=== PATIENT | female | born 1930 | race Caucasian/White ===

== ENCOUNTER 2019-03-26 15:45 | Inpatient (IN) ==
--- NOTE | 2019-03-26 16:05 | Emergency Department Note ---
ED Disposition Clinical Impression: Diverticulitis Disposition: Admitted as Observation Condition on Discharge: Fair Time of Disposition: 19:51 - Critical Care Critical Care Time: No Attestation: On , the high probability of a clinically significant, sudden or life threatening deterioration of the following system(s) required my full and direct attention, intervention and personal management. The time I documented below is in addition to time spent performing reported procedures but includes the following listed in this critical care notation. Medical Decision Making - Medical Records Medical records reviewed: Yes: I reviewed the patient's medical records. - Tin Inquiry Pt receiving controlled substance: No Tin was queried for this patient: No Vital Signs: 03/26/19 15:46 03/26/19 18:37 Temperature 99.1 F Temperature Source Oral Pulse Rate [Left Radial] 105 H 114 H Respiratory Rate 20 Blood Pressure [Right Arm] 101/46 L 132/63 Blood Pressure Mean [Right Arm] 64 86 Blood Pressure Source [Right Arm] Automatic Cuff Blood Pressure Position [Right Arm] Sitting 02 Sat by Pulse Oximetry 94 L 93 L Oxygen Delivery Method Room Air - Lab Data Lab results reviewed: Yes: I reviewed the patient's lab results. Orders (Tests/Meds): ED MEDICATIONS Generic Name Dose Route Start Last Admin Trade Name Freq PRN Reason Stop Dose Admin Piperacillin Sod/Tazobactam 50 mls @ 100 mls/hr 03/26/19 20:00 Sod 3.375 gm/ Sodium Chloride IV 04/09/19 19:59 Q6H ON LICENSE OF [facility] Protocol ORDERS Category Date Time Status CT abdomen pelvis wo con Stat Cat Scan 03/26/19 15:[address] cervical spine wo con Stat Cat Scan 03/26/19 16:[address] head/brain wo con Stat Cat Scan 03/26/19 15:57 Taken BMP [Basic Metabolic Panel] Stat Lab 03/26/19 18:46 Ordered CBC [Complete Blood Count Auto Diff] Stat Lab 03/26/19 18:46 Ordered General Adult HPI - General Stated complaint: fall Time Seen by Provider: 03/26/19 15:59 Source of Information: Patient Limitations: No Limitations - History of Present Illness HPI narrative: fall at her place of residence, injuring head and abdomen - Related Data Home Medications Medication Instructions Recorded Confirmed Atorvastatin Calcium [Atorvastatin 80 mg PO DAILY 07/18/18 03/26/19 80mg Tab] Cholecalciferol (Vitamin D3) 50,000 unit PO WEEKLY 07/18/18 03/26/19 [Vitamin D3 50,000 unit Cap] Cyanocobalamin (Vitamin B-12) 1,000 mcg PO DAILY 07/18/18 03/26/19 [Vitamin B-12] Levothyroxine Sodium 100 mcg PO DAILY 07/18/18 03/26/19 [Levothyroxine 50mcg (0.05mg) Tab] Melatonin/Pyridoxine HCl (B6) 1 each PO DAILY 07/18/18 03/26/19 [Melatonin 3 mg Tablet] Metoprolol Tartrate 50 mg PO BID 07/18/18 03/26/19 Omeprazole [Omeprazole 20mg 20 mg PO BID 07/18/18 03/26/19 Capsule] Sertraline HCl [Zoloft 100mg 100 mg PO DAILY 07/18/18 03/26/19 tablet] Allergies Allergy/AdvReac Type Severity Reaction Status Date / Time buspirone [From BuSpar] Allergy Verified 01/12/19 12:14 Sulfa (Sulfonamide Allergy Verified 11/01/18 19:47 Antibiotics) [facility] History - Hepatitis A Screen Attestation statement:: This patient has been screened for Hepatitis A risk factors. I have reviewed the patient's past medical history: Yes Medical History: Denies:: Cancer, Diabetes Mellitus Type 1, Diabetes Mellitus Type 2, MRSA Laterality Cases: Bilateral: Other Amputation: No Fractures: No - Social History Smoking Status: Never smoker Alcohol Intake: never Occupational Status: disabled Housing: assisted living facility Family Hx:: Hyperlipidemia, Hypertension, Heart Attack ROS Obtained: Yes All systems reviewed & no additional complaints - Constitutional Constitutional: Reports chills - Cardiovascular Cardiovascular: Denies chest pain, Denies dyspnea - Respiratory Respiratory: No chest congestion, No dyspnea - Gastrointestinal Gastrointestingal: Reports: abdominal pain - Integumentary/Breasts Skin/Breast: Denies skin pain - Neurologic Neurologic: Denies headache(s), Denies seizure-like activity, Denies syncope Physical Exam - General General appearance: alert, in no apparent distress - Head Head exam: atraumatic, normocephalic, normal inspection - Eye Eye exam: Present: normal appearance, PERRL, EOMI - ENT ENT exam: Present: normal exam, normal oropharynx, mucous membranes moist, TM's normal bilaterally, normal external ear exam - Neck Neck exam: Present: normal inspection, full ROM, trachea midline. Absent: men ingismus, lymphadenopathy - Chest Chest inspection: Present: normal inspection - Respiratory Respiratory exam: Present: normal lung sounds bilaterally - Cardiovascular Cardiovascular exam: Present: regular rate, normal rhythm. Absent: JVD - Abdominal Exam Abdominal exam: Present: soft, normal bowel sounds. Absent: distention, tenderness, guarding Abdominal tenderness: Present: LLQ, moderate - Extremities Exam Extremities exam: Present: normal inspection, full ROM, normal capillary refill. Absent: calf tenderness - Back Exam Back exam: Present: normal inspection - Neurological Exam Neurological exam: Present: alert, oriented X3 - Psychiatric Psychiatric exam: Present: normal affect, normal mood - Skin Skin exam: Present: warm, dry, intact, normal color - Lymphatic Lymphatic Findings: no adenopathy
[2019-03-26 20:10] LABS: Basophils # 0.1 K/mm3 (0-0.2); Basophils % 0.2 % (0.1-2.0); Eosinophils # 0.3 K/mm3 (0.0-0.4); Eosinophils % 0.9 % (0.1-12.0); Hematocrit 31.6 % (37.0-47.0); Hemoglobin 9.9 g/dL (12.2-16.2); Lymphocytes # 1.3 K/mm3 (0.7-4.5); Mean Corpuscular HGB Conc 31.2 g/dL (31.8-35.4); Mean Corpuscular Volume 91.3 fl (81-99); Mean Platelet Volume 8.9 fl (7.4-10.4); Monocytes # 1.6 K/mm3 (0.1-1.0); Monocytes % 4.7 % (1.7-9.3); Neutrophils # 30.5 K/mm3 (1.8-7.8); Neutrophils % 90.3 % (37.0-80.0); Platelet Count 160 K/mm3 (142-424); Red Blood Count 3.46 M/mm3 (4.20-5.40); Red Cell Distribution Width 14.4 % (11.5-17.5); White Blood Count 33.8 K/mm3 (4.8-10.8)
[2019-03-26 20:17] LABS: Anion Gap 15.2 mEq/L (5-15); Calcium 8.6 mg/dL (8.5-10.1)
[2019-03-26 20:30] LABS: Lymphocytes % 6 % (10-50); Monocytes % 1 % (2-9); Neutrophils % 93 % (42-76); RBC Morphology Normal; Total Cells Counted 100
--- NOTE | 2019-03-27 07:04 | Pharmacy Consult Notes ---
[facility] Pharmacy VTE Monitoring - Patient Demographics Admission date: 03/26/19 Report Date: 03/27/19 Time: 07:04 Allergies/Adverse Reactions: Patient Allergies buspirone [From BuSpar] Allergy (Verified 01/12/19 12:14) Sulfa (Sulfonamide Antibiotics) Allergy (Verified 11/01/18 19:47) Height: 1.52 m Weight: 50.972 kg Patient Problems: Current Active Problems Diverticulitis (Acute) - VTE Risk Labs: VTE Related Lab Results Hgb 9.9 g/dL (12.2-16.2) L 03/26/19 20:00 Hct 31.6 % (37.0-47.0) L 03/26/19 20:00 Plt Count 160 K/mm3 (142-424) 03/26/19 20:00 BUN 39 mg/dL (7-18) H 03/26/19 20:00 Creatinine 2.10 mg/dL (0.55-1.02) H 03/26/19 20:00 Estimated Creat Clear 14 mL/min (50-200) 03/26/19 20:00 Was VTE Risk Assessment Performed: Yes VTE Score: 2 VTE Risk Level: Very Low Risk - Prophylaxis VTE Prophylaxis Ordered?: Yes Types of VTE Prophylaxis: TEDS Knee High Location of Applied Device: Bilateral Lower Extremeties - VTE Diagnosis Confirmed Treatment or plan recommended: Continue Current Treatment
[2019-03-27 07:20] LABS: Basophils % 0.1 % (0.1-2.0); Eosinophils % 0.1 % (0.1-12.0)
[2019-03-27 07:36] LABS: Anion Gap 14.4 mEq/L (5-15); Calcium 8.1 mg/dL (8.5-10.1)
[2019-03-27 07:42] LABS: Basophils # 0.1 K/mm3 (0-0.2); Hematocrit 29.9 % (37.0-47.0); Lymphocytes # 1.3 K/mm3 (0.7-4.5); Lymphocytes % 4.2 % (10-50); Mean Corpuscular HGB Conc 29.5 g/dL (31.8-35.4); Mean Corpuscular Volume 93.1 fl (81-99); Mean Platelet Volume 9.1 fl (7.4-10.4); Monocytes # 2.1 K/mm3 (0.1-1.0); Monocytes % 6.7 % (1.7-9.3); Neutrophils # 28.2 K/mm3 (1.8-7.8); Platelet Count 168 K/mm3 (142-424); Red Blood Count 3.21 M/mm3 (4.20-5.40); Red Cell Distribution Width 14.5 % (11.5-17.5); White Blood Count 31.7 K/mm3 (4.8-10.8)
[2019-03-27 07:50] LABS: Hemoglobin 8.8 g/dL (12.2-16.2)
--- NOTE | 2019-03-27 09:33 | Consult Report ---
*Admission Date: 03/26/19 *Reason for consult:: Diverticulitis *History of present illness: This is an 88-year-old female who was evaluated last night in the emergency department after presenting with head, chest, and abdominal pain status post fall. No significant acute injuries were determined after her initial evaluation; however, she was found to have radiographic evidence of diverticulitis. Her white blood cell count was significantly elevated. She was placed on antibiotics and admitted for further evaluation and management. Review of Systems - Review of Systems Review of systems:: unable to obtain - *Neurologic Denies headache(s), Denies seizure-like activity, Denies fainting [facility] History Medical History: Reports:: Coronary Artery Disease, Hyperlipidemia, Hypertension Denies:: Cancer, Diabetes Mellitus Type 1, Diabetes Mellitus Type 2, MRSA *Have you ever received a pneumonia vaccine?: Yes *Have you received a flu vaccine this season?: Yes Other Medical History: Reports: Anemia, Arthritis, Hypothyroidism Laterality Cases: Bilateral: Other Amputation: No Fractures: No - *Social History Smoking Status: Never smoker Alcohol Intake: never *Occupational Status:: disabled Housing: assisted living facility Household Members: other *Travel in the last 8 weeks: None Family Hx:: Hyperlipidemia, Hypertension, Heart Attack Meds Home Medications Medication Instructions Recorded Confirmed Type Atorvastatin Calcium [Atorvastatin 80 mg PO HS 07/18/18 03/27/19 History 80mg Tab] Cholecalciferol (Vitamin D3) 50,000 unit PO WEEKLY 07/18/18 03/27/19 History [Vitamin D3 50,000 unit Cap] Cyanocobalamin (Vitamin B-12) 1,000 mcg PO DAILY 07/18/18 03/27/19 History [Vitamin B-12] Levothyroxine Sodium 100 mcg PO DAILY 07/18/18 03/27/19 History [Levothyroxine 50mcg (0.05mg) Tab] Melatonin/Pyridoxine HCl (B6) 3 mg PO HS 07/18/18 03/27/19 History [Melatonin 3 mg Tablet] Metoprolol Tartrate 50 mg PO BID 07/18/18 03/27/19 History Omeprazole [Omeprazole 20mg 20 mg PO BID 07/18/18 03/27/19 History Capsule] Sertraline HCl [Zoloft 100mg 100 mg PO DAILY 07/18/18 03/27/19 History tablet] Acetaminophen 500 mg PO BIDP PRN 03/27/19 03/27/19 History Donepezil HCl [Aricept 5mg 5 mg PO HS 03/27/19 03/27/19 History Tablet] Nitroglycerin 0.4 mg SL Q5MINP PRN 03/27/19 03/27/19 History Tramadol HCl [Tramadol 50mg 50 mg PO BID 03/27/19 03/27/19 History Tab] Trazodone HCl 50 mg PO DAILY 03/27/19 03/27/19 History Allergies Allergy/AdvReac Type Severity Reaction Status Date / Time buspirone [From BuSpar] Allergy Verified 01/12/19 12:14 Sulfa (Sulfonamide Allergy Verified 11/01/18 19:47 Antibiotics) Exam Vital signs and Labs for Last 24 Hours: Temp Pulse Resp BP Pulse Ox 97.5 F L 68 18 105/45 L 95 03/27/19 08:00 03/27/19 08:00 03/27/19 08:00 03/27/19 08:00 03/27/19 08:00 Laboratory Results - last 24 hr 03/26/19 20:00: WBC 33.8 H*, RBC 3.46 L, Hgb 9.9 L, Hct 31.6 L, MCV 91.3, MCH 2 8.5, MCHC 31.2 L, RDW 14.4, Plt Count 160, MPV 8.9, Neut % (Auto) 90.3 H, Lymph % (Auto) 4.0 L, [place] % (Auto) 4.7, Eos % (Auto) 0.9, Baso % (Auto) 0.2, Neut # (Auto) 30.5 H, Lymph # (Auto) 1.3, [place] # (Auto) 1.6 H, Eos # (Auto) 0.3, Baso # (Auto) 0.1, Total Counted 100, Neutrophils % (Manual) 93 H, Lymphocytes % (Manual) 6 L, Monocytes % (Manual) 1 L, Platelet Estimate Normal, RBC Morphology Normal 03/26/19 20:00: Sodium 136, Potassium 4.2, Chloride 101, Carbon Dioxide 24, Anion Gap 15.2 H, BUN 39 H, Creatinine 2.10 H, Estimated Creat Clear 14, Estimated GFR 22 L, Est GFR ( Amer) 27 L, Glucose 100, Calcium 8.6 03/26/19 20:00: Lactate 0.9 03/27/19 06:24: WBC 31.7 H*, RBC 3.21 L, Hgb 8.8 L D, Hct 29.9 L, MCV 93.1, MCH 27.4, MCHC 29.5 L, RDW 14.5, Plt Count 168, MPV 9.1, Neut % (Auto) 89.0 H, Lymph % (Auto) 4.2 L, [place] % (Auto) 6.7, Eos % (Auto) 0.1, Baso % (Auto) 0.1, Neut # (Auto) 28.2 H, Lymph # (Auto) 1.3, [place] # (Auto) 2.1 H, Eos # (Auto) 0.0, Baso # (Auto) 0.1 03/27/19 06:24: Sodium 138, Potassium 3.4 L, Chloride 104, Carbon Dioxide 23, Anion Gap 14.4, BUN 44 H, Creatinine 2.15 H, Estimated Creat Clear 15, Estimated GFR 22 L, Est GFR ( Amer) 26 L, Glucose 93, Calcium 8.1 L I & O for Last 24 hours: Intake & Output 03/24/19 03/25/19 03/26/19 03/27/19 11:59 11:59 11:59 11:59 Intake Total 805 / 805 Balance 805 / 805 Weight 112 lb 6 oz - Constitutional no acute distress - *Routine Respiratory Exam Absent: respiratory distress - *Routine Cardiovascular Exam Present: RRR - *Routine Abdominal Exam Present: tenderness. Absent: distended, rebound Comments: She is somewhat tender throughout her abdomen. She is more tender throughout the left upper abdomen and chest and states "fall". Although she is a poor historian, seemingly she did not complain of abdominal pain prior to her recent fall. Results - Labs 03/27/19 06:24 03/27/19 06:24 Laboratory Results - last 24 hr 03/26/19 20:00: WBC 33.8 H*, RBC 3.46 L, Hgb 9.9 L, Hct 31.6 L, MCV 91.3, MCH 28.5, MCHC 31.2 L, RDW 14.4, Plt Count 160, MPV 8.9, Neut % (Auto) 90.3 H, Lymph % (Auto) 4.0 L, [place] % (Auto) 4.7, Eos % (Auto) 0.9, Baso % (Auto) 0.2, Neut # (Auto) 30.5 H, Lymph # (Auto) 1.3, [place] # (Auto) 1.6 H, Eos # (Auto) 0.3, Baso # (Auto) 0.1, Total Counted 100, Neutrophils % (Manual) 93 H, Lymphocytes % (Manual) 6 L, Monocytes % (Manual) 1 L, Platelet Estimate Normal, RBC Morphology Normal 03/26/19 20:00: Sodium 136, Potassium 4.2, Chloride 101, Carbon Dioxide 24, Anion Gap 15.2 H, BUN 39 H, Creatinine 2.10 H, Estimated Creat Clear 14, Estimated GFR 22 L, Est GFR ( Amer) 27 L, Glucose 100, Calcium 8.6 03/26/19 20:00: Lactate 0.9 03/27/19 06:24: WBC 31.7 H*, RBC 3.21 L, Hgb 8.8 L D, Hct 29.9 L, MCV 93.1, MCH 27.4, MCHC 29.5 L, RDW 14.5, Plt Count 168, MPV 9.1, Neut % (Auto) 89.0 H, Lymph % (Auto) 4.2 L, [place] % (Auto) 6.7, Eos % (Auto) 0.1, Baso % (Auto) 0.1, Neut # (Auto) 28.2 H, Lymph # (Auto) 1.3, [place] # (Auto) 2.1 H, Eos # (Auto) 0.0, Baso # (Auto) 0.1 03/27/19 06:24: Sodium 138, Potassium 3.4 L, Chloride 104, Carbon Dioxide 23, Anion Gap 14.4, BUN 44 H, Creatinine 2.15 H, Estimated Creat Clear 15, Estimated GFR 22 L, Est GFR ( Amer) 26 L, Glucose 93, Calcium 8.1 L - Imaging CT scan - abdomen: report reviewed, image reviewed CT scan - pelvis: report reviewed, image reviewed (Copied from CT findings: There is diverticulosis of the descending and sigmoid colon. There is thickening of the distal descending colon and proximal sigmoid colon with stranding of the pericolic fat an there stranding of the pericolic fat around the lower aspect of the descending colon consistent with diverticulitis. No abscess or perforation evident. There is a small amount fluid in the pelvis nonspecific) Assessment and Plan (1) Leukocytosis Current visit: Yes Status: Acute Category: Medical Code(s): D72.829 - Elevated white blood cell count, unspecified Urinalysis ordered. Lactate ordered. (2) Diverticulitis Current visit: Yes Status: Acute Category: Medical Code(s): K57.92 - Diverticulitis of intestine, part unspecified, without perforation or abscess without bleeding Continue IV antibiotics for now Serial abdominal exams NOTE: The degree of leukocytosis and the overall "radiographic" severity of her diverticulitis is somewhat discordant. In addition, physical exam findings are somewhat "clouded" by her recent fall and associated pain. (3) Compression fracture of T10 vertebra Current visit: No Status: Acute Qualifiers: Encounter type: initial encounter Qualified Code(s): S22.070A - Wedge compression fracture of T9-T10 vertebra, initial encounter for closed fracture Category: Medical Code(s): S22.070A - Wedge compression fracture of T9-T10 vertebra, initial encounter for closed fracture (4) History of CHF (congestive heart failure) Current visit: No Status: Acute Category: Medical Code(s): Z86.79 - Personal history of other diseases of the circulatory system
[2019-03-27 11:31] LABS: Lymphocytes % 6 % (10-50); Monocytes % 8 % (2-9); Neutrophils % 83 % (42-76); Total Cells Counted 100
[2019-03-27 11:33] LABS: RBC Morphology Normal
--- NOTE | 2019-03-27 13:54 | History & Physical Report ---
*Admission Date: 03/26/19 *Chief complaint: fall *History of present illness: this wf fell and was seen in the ed and on eval was noted to have diverticulitis on xray and elevated wbc -pt was admiitted for ivf and abx and surg eval [facility] History I have reviewed the patient's past medical history: Yes Medical History: Reports:: Coronary Artery Disease, Hyperlipidemia, Hypertension Denies:: Cancer, Diabetes Mellitus Type 1, Diabetes Mellitus Type 2, MRSA *Have you ever received a pneumonia vaccine?: Yes *Have you received a flu vaccine this season?: Yes Other Medical History: Reports: Anemia, Arthritis, Hypothyroidism Laterality Cases: Bilateral: Other Amputation: No Fractures: No - *Social History Smoking Status: Never smoker Alcohol Intake: never *Occupational Status:: disabled Housing: assisted living facility Household Members: other *Travel in the last 8 weeks: None Family Hx:: Hyperlipidemia, Hypertension, Heart Attack Review of Systems - Review of Systems Review of systems:: pertinent systems reviewed and negative unless documented below - Constitutional Denies headache(s) - Eyes Denies change in vision - ENT Denies sore throat - *Cardiovascular Denies chest pain at rest - *Respiratory Denies cough - *Gastrointestinal Reports abdominal pain, Reports nausea, Denies vomiting - *Genitourinary Denies blood in urine - *Musculoskeletal Denies joint pain - Integumentary/Breasts Denies rash - *Neurologic Denies headache(s), Denies seizure-like activity, Denies fainting - Psychiatric Denies depression Meds Home Medications Medication Instructions Recorded Confirmed Type Atorvastatin Calcium [Atorvastatin 80 mg PO HS 07/18/18 03/27/19 History 80mg Tab] Cholecalciferol (Vitamin D3) 50,000 unit PO WEEKLY 07/18/18 03/27/19 History [Vitamin D3 50,000 unit Cap] Cyanocobalamin (Vitamin B-12) 1,000 mcg PO DAILY 07/18/18 03/27/19 History [Vitamin B-12] Levothyroxine Sodium 100 mcg PO DAILY 07/18/18 03/27/19 History [Levothyroxine 50mcg (0.05mg) Tab] Melatonin/Pyridoxine HCl (B6) 3 mg PO HS 07/18/18 03/27/19 History [Melatonin 3 mg Tablet] Metoprolol Tartrate 50 mg PO BID 07/18/18 03/27/19 History Omeprazole [Omeprazole 20mg 20 mg PO BID 07/18/18 03/27/19 History Capsule] Sertraline HCl [Zoloft 100mg 100 mg PO DAILY 07/18/18 03/27/19 History tablet] Acetaminophen 500 mg PO BIDP PRN 03/27/19 03/27/19 History Donepezil HCl [Aricept 5mg 5 mg PO HS 03/27/19 03/27/19 History Tablet] Nitroglycerin 0.4 mg SL Q5MINP PRN 03/27/19 03/27/19 History Tramadol HCl [Tramadol 50mg 50 mg PO BID 03/27/19 03/27/19 History Tab] Trazodone HCl 50 mg PO DAILY 03/27/19 03/27/19 History Allergies Allergy/AdvReac Type Severity Reaction Status Date / Time buspirone [From BuSpar] Allergy Verified 01/12/19 12:14 Sulfa (Sulfonamide Allergy Verified 11/01/18 19:47 Antibiotics) Exam Vital signs and Labs for Last 24 Hours: Temp Pulse Resp BP Pulse Ox 97.5 F L 68 18 105/45 L 95 03/27/19 08:00 03/27/19 08:00 03/27/19 08:00 03/27/19 08:00 03/27/19 08:00 Laboratory Results - last 24 hr 03/26/19 20:00: WBC 33.8 H*, RBC 3.46 L, Hgb 9.9 L, Hct 31.6 L, MCV 91.3, MCH 28.5, MCHC 31.2 L, RDW 14.4, Plt Count 160, MPV 8.9, Neut % (Auto) 90.3 H, Lymph % (Auto) 4.0 L, [place] % (Auto) 4.7, Eos % (Auto) 0.9, Baso % (Auto) 0.2, Neut # (Auto) 30.5 H, Lymph # (Auto) 1.3, [place] # (Auto) 1.6 H, Eos # (Auto) 0.3, Baso # (Auto) 0.1, Total Counted 100, Neutrophils % (Manual) 93 H, Lymphocytes % (Manual) 6 L, Monocytes % (Manual) 1 L, Platelet Estimate Normal, RBC Morphology Normal 03/26/19 20:00: Sodium 136, Potassium 4.2, Chloride 101, Carbon Dioxide 24, Anion Gap 15.2 H, BUN 39 H, Creatinine 2.10 H, Estimated Creat Clear 14, Estimated GFR 22 L, Est GFR ( Amer) 27 L, Glucose 100, Calcium 8.6 03/26/19 20:00: Lactate 0.9 03/27/19 06:24: WBC 31.7 H*, RBC 3.21 L, Hgb 8.8 L D, Hct 29.9 L, MCV 93.1, MCH 27.4, MCHC 29.5 L, RDW 14.5, Plt Count 168, MPV 9.1, Neut % (Auto) 89.0 H, Lymph % (Auto) 4.2 L, [place] % (Auto) 6.7, Eos % (Auto) 0.1, Baso % (Auto) 0.1, Neut # (Auto) 28.2 H, Lymph # (Auto) 1.3, [place] # (Auto) 2.1 H, Eos # (Auto) 0.0, Baso # (Auto) 0.1, Total Counted 100, Neutrophils % (Manual) 83 H, Band Neutrophils % 3.0, Lymphocytes % (Manual) 6 L, Monocytes % (Manual) 8, Platelet Estimate Normal, RBC Morphology Normal 03/27/19 06:24: Sodium 138, Potassium 3.4 L, Chloride 104, Carbon Dioxide 23, Anion Gap 14.4, BUN 44 H, Creatinine 2.15 H, Estimated Creat Clear 15, Estimated GFR 22 L, Est GFR ( Amer) 26 L, Glucose 93, Calcium 8.1 L 03/27/19 09:20: Urine Color Yellow, Urine Appearance Sl cloudy, Urine pH 5.0, Ur Specific [place] >= 1.030, Urine Protein Negative, Urine Glucose (UA) Negative, Urine Ketones Trace, Urine Blood 2+, Urine Nitrate Negative, Urine Bilirubin Negative, Urine Urobilinogen 0.2, Ur Leukocyte Esterase 1+ A, Urine RBC 3-5, Urine WBC 5-10, Ur Squamous Epith Cells 3-5, Urine Bacteria 3+ A 03/27/19 10:25: Lactate 0.4 I & O for Last 24 hours: Intake & Output 03/25/19 03/26/19 03/27/19 03/28/19 11:59 11:59 11:59 11:59 Intake Total 805 / 805 Balance 805 / 805 Weight 112 lb 6 oz 112 lb 5.984 oz - Constitutional no acute distress - *Routine HEENT Exam Head: Present: normocephalic Eye: Present: EOMI, PERRL ENT: Present: mucous membranes dry - *Routine Neck Exam Present: supple - *Routine Respiratory Exam Present: CTA bilaterally - *Routine Cardiovascular Exam Present: RRR, murmur, S4 - *Routine Abdominal Exam Present: soft, tenderness - *Routine Extremities Exam Present: full ROM. Absent: edema - *Routine Skin Exam Present: intact - *Routine Neurological Exam Present: alert, oriented X3, CN II-XII intact - Routine Psychiatric Exam Present: normal affect Assessment and Plan (1) Leukocytosis Current visit: Yes Status: Acute Category: Medical Code(s): D72.829 - Elevated white blood cell count, unspecified (2) Diverticulitis Current visit: Yes Status: Acute Category: Medical Code(s): K57.92 - Diverticulitis of intestine, part unspecified, without perforation or abscess without bleeding (3) Compression fracture of T10 vertebra Current visit: No Status: Acute Qualifiers: Encounter type: initial encounter Qualified Code(s): S22.070A - Wedge compression fracture of T9-T10 vertebra, initial encounter for closed fracture Category: Medical Code(s): S22.070A - Wedge compression fracture of T9-T10 vertebra, initial encounter for closed fracture (4) History of CHF (congestive heart failure) Current visit: No Status: Acute Category: Medical Code(s): Z86.79 - Personal history of other diseases of the circulatory system (5) Hypothyroidism Current visit: No Status: Acute Qualifiers: Hypothyroidism type: acquired Qualified Code(s): E03.9 - Hypothyroidism, unspecified Category: Medical Code(s): E03.9 - Hypothyroidism, unspecified (6) Severe sepsis Current visit: Yes Status: Acute Category: Medical Code(s): A41.9 - Sepsis, unspecified organism; R65.20 - Severe sepsis without septic shock (7) Anemia Current visit: Yes Status: Acute Qualifiers: Anemia type: unspecified type Qualified Code(s): D64.9 - Anemia, unspecified Category: Medical Code(s): D64.9 - Anemia, unspecified (8) History of hysterectomy Current visit: Yes Status: Acute Category: Medical Code(s): Z90.710 - Acquired absence of both cervix and uterus (9) Cervical spondylosis Current visit: Yes Status: Acute Category: Medical Code(s): M47.812 - Spondylosis without myelopathy or radiculopathy, cervical region (10) Renal insufficiency Current visit: Yes Status: Acute Category: Medical Code(s): N28.9 - Disorder of kidney and ureter, unspecified (11) UTI (urinary tract infection) Current visit: Yes Status: Acute Qualifiers: Urinary tract infection type: site unspecified Hematuria presence: without hematuria Qualified Code(s): N39.0 - Urinary tract infection, site not specified Category: Medical Code(s): N39.0 - Urinary tract infection, site not specified (12) C. difficile enteritis Current visit: Yes Status: Acute Category: Medical Code(s): A04.72 - Enterocolitis due to Clostridium difficile, not specified as recurrent
[2019-03-28 08:44] LABS: Basophils % 0.1 % (0.1-2.0); Eosinophils # 0.1 K/mm3 (0.0-0.4); Eosinophils % 0.6 % (0.1-12.0); Hematocrit 31.2 % (37.0-47.0); Hemoglobin 9.5 g/dL (12.2-16.2); Lymphocytes % 7.6 % (10-50); Mean Corpuscular HGB Conc 30.4 g/dL (31.8-35.4); Mean Corpuscular Volume 93.8 fl (81-99); Mean Platelet Volume 8.7 fl (7.4-10.4); Monocytes # 0.5 K/mm3 (0.1-1.0); Monocytes % 3.8 % (1.7-9.3); Neutrophils # 11.3 K/mm3 (1.8-7.8); Platelet Count 154 K/mm3 (142-424); Red Blood Count 3.33 M/mm3 (4.20-5.40); Red Cell Distribution Width 14.4 % (11.5-17.5); White Blood Count 12.8 K/mm3 (4.8-10.8)
[2019-03-28 08:52] LABS: Anion Gap 13.1 mEq/L (5-15); Calcium 7.7 mg/dL (8.5-10.1)
--- NOTE | 2019-03-28 09:00 | Progress Note ---
Internal Medicine - PN: Subj *Date: 03/28/19 *Time: 08:58 Interval history: better today with less wbc - will add po vancomycin Exam Vital signs and Labs for Last 24 Hours: Temp Pulse Resp BP Pulse Ox 97.8 F 63 18 126/43 L 94 L 03/28/19 07:35 03/28/19 07:35 03/28/19 07:35 03/28/19 07:35 03/28/19 07:35 Laboratory Results - last 24 hr 03/27/19 06:24: Total Counted 100, Neutrophils % (Manual) 83 H, Band Neutrophils % 3.0, Lymphocytes % (Manual) 6 L, Monocytes % (Manual) 8, Platelet Estimate Normal, RBC Morphology Normal 03/27/19 09:20: Urine Color Yellow, Urine Appearance Sl cloudy, Urine pH 5.0, Ur Specific [place] >= 1.030, Urine Protein Negative, Urine Glucose (UA) Negative, Urine Ketones Trace, Urine Blood 2+, Urine Nitrate Negative, Urine Bilirubin Negative, Urine Urobilinogen 0.2, Ur Leukocyte Esterase 1+ A, Urine RBC 3-5, Urine WBC 5-10, Ur Squamous Epith Cells 3-5, Urine Bacteria 3+ A 03/27/19 10:25: Lactate 0.4 03/27/19 18:23: Stl Aeromonas (PCR) Not detected, Stl C. cayetanensis PCR Not detected, Stool Rotavirus (PCR) Not detected, Stl Adenov F 40/41 PCR Not detected, Stool Astrovirus (PCR) Not detected, Stool Campylobacter PCR Not detected, Stl C.difficile Tox PCR Detected A, Stool Cryptosporidium PCR Not detected, Stl E.coli Shiga Tox PCR Not detected, Stool E coli O157 PCR Not detected, Stl Enterotoxigenic E PCR Not detected, Stool EPEC (PCR) Not detected, Stool EAEC (PCR) Not detected, Stl E. histolytica PCR Not detected, Stool Giardia Lamblia PCR Not detected, Stool Salmonella PCR Not detected, Stool Sapovirus (PCR) Not detected, Stl P. shigelloides PCR Not detected, Stl Shigella/EIEC PCR Not detected, St Y.enterocolitica PCR Not detected, Stool Vibrio (PCR) Not detected, Stl Vibrio cholerae PCR Not detected, Stl Norovirus GI/GII PCR Not detected 03/28/19 08:15: WBC 12.8 H D, RBC 3.33 L, Hgb 9.5 L, Hct 31.2 L, MCV 93.8, MCH 28.6, MCHC 30.4 L, RDW 14.4, Plt Count 154, MPV 8.7, Neut % (Auto) 88.0 H, Lymph % (Auto) 7.6 L, [place] % (Auto) 3.8, Eos % (Auto) 0.6, Baso % (Auto) 0.1, Neut # (Auto) 11.3 H, Lymph # (Auto) 1.0, [place] # (Auto) 0.5, Eos # (Auto) 0.1, Baso # (Auto) 0.0 03/28/19 08:15: Sodium 142, Potassium 3.1 L, Chloride 110 H, Carbon Dioxide 22, Anion Gap 13.1, BUN 37 H, Creatinine 1.62 H D, Estimated Creat Clear 21, Estimated GFR 30 L, Est GFR ( Amer) 36 L D, Glucose 91, Calcium 7.7 L I & O for Last 24 hours: Intake & Output 03/25/19 03/26/19 03/27/19 03/28/19 11:59 11:59 11:59 11:59 Intake Total 805 / 805 3460 / 3460 Balance 805 / 805 3460 / 3460 Weight 112 lb 6 oz 119 lb 5 oz - Constitutional no acute distress - *Routine HEENT Exam Head: Present: normocephalic Eye: Present: EOMI, PERRL ENT: Present: mucous membranes dry - *Routine Neck Exam Present: supple - *Routine Respiratory Exam Present: CTA bilaterally - *Routine Cardiovascular Exam Present: RRR, murmur, S4 - *Routine Abdominal Exam Present: soft, tenderness - *Routine Extremities Exam Present: full ROM - *Routine Skin Exam Present: intact - *Routine Neurological Exam Present: alert, CN II-XII intact - Routine Psychiatric Exam Present: normal affect Assessment and Plan (1) Leukocytosis Current visit: Yes Status: Acute Category: Medical Code(s): D72.829 - Elevated white blood cell count, unspecified (2) Diverticulitis Current visit: Yes Status: Acute Category: Medical Code(s): K57.92 - Diverticulitis of intestine, part unspecified, without perforation or abscess without bleeding (3) Compression fracture of T10 vertebra Current visit: No Status: Acute Qualifiers: Encounter type: initial encounter Qualified Code(s): S22.070A - Wedge compression fracture of T9-T10 vertebra, initial encounter for closed fracture Category: Medical Code(s): S22.070A - Wedge compression fracture of T9-T10 vertebra, initial encounter for closed fracture (4) History of CHF (congestive heart failure) Current visit: No Status: Acute Category: Medical Code(s): Z86.79 - Personal history of other diseases of the circulatory system (5) Hypothyroidism Current visit: No Status: Acute Qualifiers: Hypothyroidism type: acquired Qualified Code(s): E03.9 - Hypothyroidism, unspecified Category: Medical Code(s): E03.9 - Hypothyroidism, unspecified (6) Severe sepsis Current visit: Yes Status: Acute Category: Medical Code(s): A41.9 - Sepsis, unspecified organism; R65.20 - Severe sepsis without septic shock (7) Anemia Current visit: Yes Status: Acute Qualifiers: Anemia type: unspecified type Qualified Code(s): D64.9 - Anemia, unspecified Category: Medical Code(s): D64.9 - Anemia, unspecified (8) History of hysterectomy Current visit: Yes Status: Acute Category: Medical Code(s): Z90.710 - Acquired absence of both cervix and uterus (9) Cervical spondylosis Current visit: Yes Status: Acute Category: Medical Code(s): M47.812 - Spondylosis without myelopathy or radiculopathy, cervical region (10) Renal insufficiency Current visit: Yes Status: Acute Category: Medical Code(s): N28.9 - Disorder of kidney and ureter, unspecified (11) UTI (urinary tract infection) Current visit: Yes Status: Acute Qualifiers: Urinary tract infection type: site unspecified Hematuria presence: without hematuria Qualified Code(s): N39.0 - Urinary tract infection, site not specified Category: Medical Code(s): N39.0 - Urinary tract infection, site not specified (12) C. difficile enteritis Current visit: Yes Status: Acute Category: Medical Code(s): A04.72 - Enterocolitis due to Clostridium difficile, not specified as recurrent
[2019-03-28 11:14] LABS: Eosinophils % 1 % (0-3); Hypochromasia 1+; Lymphocytes % 7 % (10-50); Monocytes % 1 % (2-9); Neutrophils % 91 % (42-76); Total Cells Counted 100
--- NOTE | 2019-03-28 15:57 | Progress Note ---
Subjective Patient reports: no new complaints Narrative: Ms. Lopez is a 8-year-old female admitted to [facility] after fall at home; evaluation included CT A/P. Findings consistent with acute sigmoid diverticulitis. Uncomplicated. No free air. No free fluid. Minimal stranding along the sigmoid colon. Markedly elevated WBC. Now improved. Ms. Lopez reports that she is feeling well. Improved. Pain is persistent yet less in severity. Otherwise, no other complaints. Tolerating clear liquids. Exam Vital signs and Labs for Last 24 Hours: Temp Pulse Resp BP Pulse Ox 98.1 F 105 H 18 151/71 H 99 03/28/19 15:42 03/28/19 15:42 03/28/19 15:42 03/28/19 15:42 03/28/19 15:42 Laboratory Results - last 24 hr 03/27/19 18:23: Stl Aeromonas (PCR) Not detected, Stl C. cayetanensis PCR Not detected, Stool Rotavirus (PCR) Not detected, Stl Adenov F 40/41 PCR Not detected, Stool Astrovirus (PCR) Not detected, Stool Campylobacter PCR Not detected, Stl C.difficile Tox PCR Detected A, Stool Cryptosporidium PCR Not detected, Stl E.coli Shiga Tox PCR Not detected, Stool E coli O157 PCR Not detected, Stl Enterotoxigenic E PCR Not detected, Stool EPEC (PCR) Not detected, Stool EAEC (PCR) Not detected, Stl E. histolytica PCR Not detected, Stool Giardia Lamblia PCR Not detected, Stool Salmonella PCR Not detected, Stool Sapovirus (PCR) Not detected, Stl P. shigelloides PCR Not detected, Stl Shigella/EIEC PCR Not detected, St Y.enterocolitica PCR Not detected, Stool Vibrio (PCR) Not detected, Stl Vibrio cholerae PCR Not detected, Stl Norovirus GI/GII PCR Not detected 03/28/19 08:15: WBC 12.8 H D, RBC 3.33 L, Hgb 9.5 L, Hct 31.2 L, MCV 93.8, MCH 28.6, MCHC 30.4 L, RDW 14.4, Plt Count 154, MPV 8.7, Neut % (Auto) 88.0 H, Lymph % (Auto) 7.6 L, [place] % (Auto) 3.8, Eos % (Auto) 0.6, Baso % (Auto) 0.1, Neut # (Auto) 11.3 H, Lymph # (Auto) 1.0, [place] # (Auto) 0.5, Eos # (Auto) 0.1, Baso # (Auto) 0.0, Total Counted 100, Neutrophils % (Manual) 91 H, Lymphocytes % (Manual) 7 L, Monocytes % (Manual) 1 L, Eosinophils % (Manual) 1, Platelet Estimate Normal, Hypochromasia 1+ 03/28/19 08:15: Sodium 142, Potassium 3.1 L, Chloride 110 H, Carbon Dioxide 22, Anion Gap 13.1, BUN 37 H, Creatinine 1.62 H D, Estimated Creat Clear 21, Estimated GFR 30 L, Est GFR ( Amer) 36 L D, Glucose 91, Calcium 7.7 L I & O for Last 24 hours: Intake & Output 03/26/19 03/27/19 03/28/19 03/29/19 11:59 11:59 11:59 11:59 Intake Total 805 / 805 3560 / 3560 360 / 360 Balance 805 / 805 3560 / 3560 360 / 360 Weight 50.972 kg 54.119 kg Microbiology Reports for the Last 24 Hours: Microbiology 03/27/19 09:20 Urine,Catheterized Urine Culture - Preliminary NO GROWTH AFTER 24 HOURS - Constitutional no acute distress - *Routine Cardiovascular Exam Present: tachycardia - *Routine Abdominal Exam Present: soft Comments: Nondistended. No peritonitis. Slightly tender left lower quadrant. No guarding. Progress Note: A&P (1) Leukocytosis Status: Acute Current Visit: Yes (2) Diverticulitis Status: Acute Current Visit: Yes (3) Compression fracture of T10 vertebra Status: Acute Current Visit: No (4) History of CHF (congestive heart failure) Status: Acute Current Visit: No (5) Hypothyroidism Status: Acute Current Visit: No (6) Severe sepsis Status: Acute Current Visit: Yes (7) Anemia Status: Acute Current Visit: Yes (8) History of hysterectomy Status: Acute Current Visit: Yes (9) Cervical spondylosis Status: Acute Current Visit: Yes (10) Renal insufficiency Status: Acute Current Visit: Yes (11) UTI (urinary tract infection) Status: Acute Current Visit: Yes (12) C. difficile enteritis Status: Acute Current Visit: Yes Assessment and Plan for All Diagnoses:: 1. Acute sigmoid diverticulitis. Recent fall prompted ED evaluation. WBC has improved from 31-12. Remains on antibiotics. Tolerating clears. Clinical abdominal examination with slight tenderness. No indication for operative intervention. Continue supportive care. Tailor antibiotics. Transition to low residue diet.
--- NOTE | 2019-03-29 08:22 | Progress Note ---
Internal Medicine - PN: Subj *Date: 03/29/19 *Time: 08:19 Interval history: doing better - labs pending - will discuss abx with phar Exam Vital signs and Labs for Last 24 Hours: Temp Pulse Resp BP Pulse Ox 98.0 F 61 18 157/58 H 97 03/29/19 07:40 03/29/19 07:40 03/29/19 07:40 03/29/19 07:40 03/29/19 07:40 Laboratory Results - last 24 hr 03/28/19 08:15: WBC 12.8 H D, RBC 3.33 L, Hgb 9.5 L, Hct 31.2 L, MCV 93.8, MCH 28.6, MCHC 30.4 L, RDW 14.4, Plt Count 154, MPV 8.7, Neut % (Auto) 88.0 H, Lymph % (Auto) 7.6 L, [place] % (Auto) 3.8, Eos % (Auto) 0.6, Baso % (Auto) 0.1, Neut # (Auto) 11.3 H, Lymph # (Auto) 1.0, [place] # (Auto) 0.5, Eos # (Auto) 0.1, Baso # (Auto) 0.0, Total Counted 100, Neutrophils % (Manual) 91 H, Lymphocytes % (Manual) 7 L, Monocytes % (Manual) 1 L, Eosinophils % (Manual) 1, Platelet Estimate Normal, Hypochromasia 1+ 03/28/19 08:15: Sodium 142, Potassium 3.1 L, Chloride 110 H, Carbon Dioxide 22, Anion Gap 13.1, BUN 37 H, Creatinine 1.62 H D, Estimated Creat Clear 21, Estimated GFR 30 L, Est GFR ( Amer) 36 L D, Glucose 91, Calcium 7.7 L I & O for Last 24 hours: Intake & Output 03/26/19 03/27/19 03/28/19 03/29/19 11:59 11:59 11:59 11:59 Intake Total 805 / 805 3560 / 3560 3513 / 3513 Balance 805 / 805 3560 / 3560 3513 / 3513 Weight 112 lb 6 oz 119 lb 5 oz 120 lb 4 oz Microbiology Reports for the Last 24 Hours: Microbiology 03/26/19 20:00 Blood Blood Culture - Preliminary NO GROWTH AFTER 48 HOURS 03/26/19 20:00 Blood Blood Culture - Preliminary NO GROWTH AFTER 48 HOURS 03/27/19 09:20 Urine,Catheterized Urine Culture - Preliminary NO GROWTH AFTER 24 HOURS - Constitutional no acute distress - *Routine HEENT Exam Head: Present: normocephalic Eye: Present: EOMI, PERRL ENT: Present: mucous membranes dry - *Routine Neck Exam Present: supple - *Routine Respiratory Exam Present: CTA bilaterally - *Routine Cardiovascular Exam Present: RRR, murmur - *Routine Abdominal Exam Present: soft - *Routine Extremities Exam Absent: calf tenderness - *Routine Skin Exam Present: intact - *Routine Neurological Exam Present: alert, CN II-XII intact - Routine Psychiatric Exam Present: normal affect Assessment and Plan (1) Leukocytosis Current visit: Yes Status: Acute Category: Medical Code(s): D72.829 - Elevated white blood cell count, unspecified (2) Diverticulitis Current visit: Yes Status: Acute Category: Medical Code(s): K57.92 - Diverticulitis of intestine, part unspecified, without perforation or abscess without bleeding (3) Compression fracture of T10 vertebra Current visit: No Status: Acute Qualifiers: Encounter type: initial encounter Qualified Code(s): S22.070A - Wedge comp ression fracture of T9-T10 vertebra, initial encounter for closed fracture Category: Medical Code(s): S22.070A - Wedge compression fracture of T9-T10 vertebra, initial encounter for closed fracture (4) History of CHF (congestive heart failure) Current visit: No Status: Acute Category: Medical Code(s): Z86.79 - Personal history of other diseases of the circulatory system (5) Hypothyroidism Current visit: No Status: Acute Qualifiers: Hypothyroidism type: acquired Qualified Code(s): E03.9 - Hypothyroidism, unspecified Category: Medical Code(s): E03.9 - Hypothyroidism, unspecified (6) Severe sepsis Current visit: Yes Status: Acute Category: Medical Code(s): A41.9 - Sepsis, unspecified organism; R65.20 - Severe sepsis without septic shock (7) Anemia Current visit: Yes Status: Acute Qualifiers: Anemia type: unspecified type Qualified Code(s): D64.9 - Anemia, unspecified Category: Medical Code(s): D64.9 - Anemia, unspecified (8) History of hysterectomy Current visit: Yes Status: Acute Category: Medical Code(s): Z90.710 - Acquired absence of both cervix and uterus (9) Cervical spondylosis Current visit: Yes Status: Acute Category: Medical Code(s): M47.812 - Spondylosis without myelopathy or radiculopathy, cervical region (10) Renal insufficiency Current visit: Yes Status: Acute Category: Medical Code(s): N28.9 - Disorder of kidney and ureter, unspecified (11) UTI (urinary tract infection) Current visit: Yes Status: Acute Qualifiers: Urinary tract infection type: site unspecified Hematuria presence: without hematuria Qualified Code(s): N39.0 - Urinary tract infection, site not specified Category: Medical Code(s): N39.0 - Urinary tract infection, site not specified (12) C. difficile enteritis Current visit: Yes Status: Acute Category: Medical Code(s): A04.72 - Enterocolitis due to Clostridium difficile, not specified as recurrent
[2019-03-29 09:15] LABS: Anion Gap 14.1 mEq/L (5-15); Calcium 7.5 mg/dL (8.5-10.1)
[2019-03-29 09:16] LABS: Basophils % 0.6 % (0.1-2.0); Eosinophils # 0.1 K/mm3 (0.0-0.4); Hematocrit 30.4 % (37.0-47.0); Hemoglobin 9.2 g/dL (12.2-16.2); Lymphocytes % 15.4 % (10-50); Mean Corpuscular HGB Conc 30.3 g/dL (31.8-35.4); Mean Corpuscular Volume 93.4 fl (81-99); Monocytes # 0.4 K/mm3 (0.1-1.0); Monocytes % 6.8 % (1.7-9.3); Neutrophils # 4.9 K/mm3 (1.8-7.8); Neutrophils % 75.2 % (37.0-80.0); Platelet Count 191 K/mm3 (142-424); Red Blood Count 3.26 M/mm3 (4.20-5.40); Red Cell Distribution Width 14.4 % (11.5-17.5); White Blood Count 6.5 K/mm3 (4.8-10.8)
--- NOTE | 2019-03-29 12:19 | Progress Note ---
Subjective Narrative: Ms. Lopez is an 88-year-old female admitted after fall at home. Incidental finding on CT A/P consistent with mild sigmoid colon inflammation. Treated to diverticulitis. However, stool studies have also demonstrated C. difficile positive results. Elevated WBC has now returned to normal. Tolerating low residue diet. Remains on IV antibiotics. Looks better. Feels better. Exam Vital signs and Labs for Last 24 Hours: Temp Pulse Resp BP Pulse Ox 98.0 F 61 18 157/58 H 97 03/29/19 07:40 03/29/19 07:40 03/29/19 07:40 03/29/19 07:40 03/29/19 07:40 Laboratory Results - last 24 hr 03/29/19 08:48: WBC 6.5 D, RBC 3.26 L, Hgb 9.2 L, Hct 30.4 L, MCV 93.4, MCH 28.3, MCHC 30.3 L, RDW 14.4, Plt Count 191, MPV 9.0, Neut % (Auto) 75.2, Lymph % (Auto) 15.4, [place] % (Auto) 6.8, Eos % (Auto) 2.0, Baso % (Auto) 0.6, Neut # (Auto) 4.9, Lymph # (Auto) 1.0, [place] # (Auto) 0.4, Eos # (Auto) 0.1, Baso # (Auto) 0.0 03/29/19 08:48: Sodium 145, Potassium 3.1 L, Chloride 113 H, Carbon Dioxide 21, Anion Gap 14.1, BUN 26 H D, Creatinine 1.20 H D, Estimated Creat Clear 29, Estimated GFR 43 L, Est GFR ( Amer) 52 L D, Glucose 113 H, Calcium 7.5 L I & O for Last 24 hours: Intake & Output 03/27/19 03/28/19 03/29/19 03/30/19 11:59 11:59 11:59 11:59 Intake Total 805 / 805 3560 / 3560 3613 / 3613 Balance 805 / 805 3560 / 3560 3 / 3613 Weight 50.972 kg 54.119 kg 54.544 kg Microbiology Reports for the Last 24 Hours: Microbiology 03/27/19 09:20 Urine,Catheterized Urine Culture - Final NO GROWTH AFTER 48 HOURS 03/26/19 20:00 Blood Blood Culture - Preliminary NO GROWTH AFTER 48 HOURS 03/26/19 20:00 Blood Blood Culture - Preliminary NO GROWTH AFTER 48 HOURS - Constitutional no acute distress Comments: Sitting upright. Nontoxic. - *Routine Abdominal Exam Comments: Soft. Nondistended. Nontender. Progress Note: A&P (1) Leukocytosis Status: Acute Current Visit: Yes (2) Diverticulitis Status: Acute Current Visit: Yes (3) Compression fracture of T10 vertebra Status: Acute Current Visit: No (4) History of CHF (congestive heart failure) Status: Acute Current Visit: No (5) Hypothyroidism Status: Acute Current Visit: No (6) Severe sepsis Status: Acute Current Visit: Yes (7) Anemia Status: Acute Current Visit: Yes (8) History of hysterectomy Status: Acute Current Visit: Yes (9) Cervical spondylosis Status: Acute Current Visit: Yes (10) Renal insufficiency Status: Acute Current Visit: Yes (11) UTI (urinary tract infection) Status: Acute Current Visit: Yes (12) C. difficile enteritis Status: Acute Current Visit: Yes Assessment and Plan for All Diagnoses:: 1. Colitis. Assumed to be sigmoid diverticulitis after CT A/P; uncomplicated. Additional findings includes C. difficile positive stool. Doing well. Tolerating low residue diet. No surgical intervention indicated. Recommend transition to oral antibiotics. Flagyl and ciprofloxacin should be sufficient; 10-day course after discharge.
[2019-03-30 09:43] LABS: Basophils % 0.3 % (0.1-2.0); Eosinophils # 0.1 K/mm3 (0.0-0.4); Eosinophils % 0.6 % (0.1-12.0); Hematocrit 33.8 % (37.0-47.0); Hemoglobin 9.9 g/dL (12.2-16.2); Lymphocytes # 1.1 K/mm3 (0.7-4.5); Lymphocytes % 13.2 % (10-50); Mean Corpuscular HGB Conc 29.3 g/dL (31.8-35.4); Mean Corpuscular Volume 95.6 fl (81-99); Mean Platelet Volume 8.5 fl (7.4-10.4); Monocytes # 0.6 K/mm3 (0.1-1.0); Monocytes % 6.6 % (1.7-9.3); Neutrophils # 6.6 K/mm3 (1.8-7.8); Neutrophils % 79.2 % (37.0-80.0); Platelet Count 224 K/mm3 (142-424); Red Blood Count 3.54 M/mm3 (4.20-5.40); Red Cell Distribution Width 14.5 % (11.5-17.5); White Blood Count 8.4 K/mm3 (4.8-10.8)
[2019-03-30 10:03] LABS: Chloride 115 mmol/L (98-107); Sodium 147 mmol/L (136-145)
[2019-03-30 10:04] LABS: Anion Gap 15.3 mEq/L (5-15); Blood Urea Nitrogen 19 mg/dL (7-18); Calcium 7.8 mg/dL (8.5-10.1); Carbon Dioxide 20 mmol/L (21.0-32.0); Glucose 141 mg/dL (74-106)
--- NOTE | 2019-03-30 13:33 | Consult Report ---
History of Present Illness Consult date: 03/30/19 Requesting physician: Sukh Valenzuela Consult reason: atrial fibrillation Chief complaint: A. fib with RVR Additional Medical History:: 1. History of A. fib per patient A. CHADS-VASc score is 6 but No anticoagulation due to recurrent falls 2. History of CHF per patient 3. History of multiple CVA's 4. 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 Periorbital ecchymosis after falling out of bed, 07/2018 6. Hypothyroidism, on replacement but still with elevated TSH, 07/2018 7. CKD stage 3 with Cr 1.7, GFR 35 (07/2018) 8. Anemia, 07/2018, Hgb 10.8 9. Sigmoid diverticulitis, 03/2019 10. HTN History of present illness: 88 yo WF admitted for abdominal pain with elevated WBC/sepsis. Workup revealed sigmoid diverticulitis. Improving on abx but now has developed A. fib with RVR. Denies any chest pain. Known history of A. fib but no anticoagulation due to recurrent falls. Some conversational SOA. Poor historian. EKG is a. fib with RVR (rate in the 130 bpm range). [facility] History Medical History: Reports:: Coronary Artery Disease, Hyperlipidemia, Hypertension Denies:: Cancer, Diabetes Mellitus Type 1, Diabetes Mellitus Type 2, MRSA *Have you ever received a pneumonia vaccine?: Yes *Have you received a flu vaccine this season?: Yes Other Medical History: Reports: Anemia, Arthritis, Hypothyroidism Laterality Cases: Bilateral: Other Amputation: No Fractures: No - *Social History Smoking Status: Never smoker Alcohol Intake: never *Occupational Status:: disabled Housing: assisted living facility Household Members: other *Travel in the last 8 weeks: None Family Hx:: Hyperlipidemia, Hypertension, Heart Attack Meds Home Medications Medication Instructions Recorded Confirmed Type Atorvastatin Calcium [Atorvastatin 80 mg PO HS 07/18/18 03/27/19 History 80mg Tab] Cholecalciferol (Vitamin D3) 50,000 unit PO WEEKLY 07/18/18 03/27/19 History [Vitamin D3 50,000 unit Cap] Cyanocobalamin (Vitamin B-12) 1,000 mcg PO DAILY 07/18/18 03/27/19 History [Vitamin B-12] Levothyroxine Sodium 100 mcg PO DAILY 07/18/18 03/27/19 History [Levothyroxine 50mcg (0.05mg) Tab] Melatonin/Pyridoxine HCl (B6) 3 mg PO HS 07/18/18 03/27/19 History [Melatonin 3 mg Tablet] Metoprolol Tartrate 50 mg PO BID 07/18/18 03/27/19 History Omeprazole [Omeprazole 20mg 20 mg PO BID 07/18/18 03/27/19 History Capsule] Sertraline HCl [Zoloft 100mg 100 mg PO DAILY 07/18/18 03/27/19 History tablet] Acetaminophen 500 mg PO BIDP PRN 03/27/19 03/27/19 History Donepezil HCl [Aricept 5mg 5 mg PO HS 03/27/19 03/27/19 History Tablet] Nitroglycerin 0.4 mg SL Q5MINP PRN 03/27/19 03/27/19 History Tramadol HCl [Tramadol 50mg 50 mg PO BID 03/27/19 03/27/19 History Tab] Trazodone HCl 50 mg PO DAILY 03/27/19 03/27/19 History Allergies Allergy/AdvReac Type Severity Reaction Status Date / Time buspirone [From BuSpar] Allergy Verified 01/12/19 12:14 Sulfa (Sulfonamide Allergy Verified 11/01/18 19:47 Antibiotics) Review of Systems - Constitutional Reports lack of energy - *Cardiovascular Denies chest pain - *Respiratory Reports shortness of breath, Reports shortness of breath with activity - *Gastrointestinal Reports abdominal pain, Reports loose stools - *Genitourinary Denies blood in urine - *Musculoskeletal Denies joint pain, Denies back pain - *Neurologic Denies headache(s), Denies seizure-like activity, Denies fainting Exam Vital signs and Labs for Last 24 Hours: Temp Pulse Resp BP Pulse Ox 98.5 F 84 20 172/56 H 97 03/30/19 08:00 03/30/19 08:00 03/30/19 08:00 03/30/19 08:00 03/30/19 08:00 Laboratory Results - last 24 hr 03/30/19 09:20: WBC 8.4 D, RBC 3.54 L, Hgb 9.9 L, Hct 33.8 L, MCV 95.6, MCH 28.0, MCHC 29.3 L, RDW 14.5, Plt Count 224, MPV 8.5, Neut % (Auto) 79.2, Lymph % (Auto) 13.2, [place] % (Auto) 6.6, Eos % (Auto) 0.6, Baso % (Auto) 0.3, Neut # (Auto) 6.6, Lymph # (Auto) 1.1, [place] # (Auto) 0.6, Eos # (Auto) 0.1, Baso # (Auto) 0.0 03/30/19 09:20: Sodium 147 H, Potassium 3.3 L, Chloride 115 H, Carbon Dioxide 20 L, Anion Gap 15.3 H, BUN 19 H D, Creatinine 1.16 H, Estimated Creat Clear 30, Estimated GFR 44 L, Est GFR ( Amer) 54 L, Glucose 141 H, Calcium 7.8 L, Troponin I < 0.02 I & O for Last 24 hours: Intake & Output 03/28/19 03/29/19 03/30/19 03/31/19 11:59 11:59 11:59 11:59 Intake Total 3560 / 3560 3613 / 3613 3180 / 3180 Balance 3560 / 3560 3613 / 3613 3180 / 3180 Weight 119 lb 5 oz 120 lb 4 oz 122 lb 3.983 oz Microbiology Reports for the Last 24 Hours: Microbiology 03/27/19 09:20 Urine,Catheterized Urine Culture - Final NO GROWTH AFTER 48 HOURS - *Routine HEENT Exam Head: Present: normocephalic Eye: Present: EOMI, PERRL ENT: Present: mucous membranes moist - *Routine Neck Exam Present: supple. Absent: JVD, carotid bruit - *Routine Respiratory Exam Present: decreased breath sounds, diminished air movement. Absent: accessory muscle use, rales, rhonchi, wheezes - *Routine Cardiovascular Exam Present: tachycardia, irregularly irregular. Absent: murmur, gallop, rubs - *Routine Abdominal Exam Present: soft. Absent: tenderness, distended, guarding - *Routine Extremities Exam Absent: edema, calf tenderness - *Routine Neurological Exam Present: alert, moving all extremities Assessment and Plan (1) Leukocytosis Current visit: Yes Status: Acute Category: Medical Code(s): D72.829 - Elevated white blood cell count, unspecified (2) Diverticulitis Current visit: Yes Status: Acute Category: Medical Code(s): K57.92 - Diverticulitis of intestine, part unspecified, without perforation or abscess without bleeding (3) Compression fracture of T10 vertebra Current visit: No Status: Acute Qualifiers: Encounter type: initial encounter Qualified Code(s): S22.070A - Wedge compression fracture of T9-T10 vertebra, initial encounter for closed fracture Category: Medical Code(s): S22.070A - Wedge compression fracture of T9-T10 vertebra, initial encounter for closed fracture (4) History of CHF (congestive heart failure) Current visit: No Status: Acute Category: Medical Code(s): Z86.79 - Personal history of other diseases of the circulatory system (5) Hypothyroidism Current visit: No Status: Acute Qualifiers: Hypothyroidism type: acquired Qualified Code(s): E03.9 - Hypothyroidism, unspecified Category: Medical Code(s): E03.9 - Hypothyroidism, unspecified (6) Severe sepsis Current visit: Yes Status: Acute Category: Medical Code(s): A41.9 - Sepsis, unspecified organism; R65.20 - Severe sepsis without septic shock (7) Anemia Current visit: Yes Status: Acute Qualifiers: Anemia type: unspecified type Qualified Code(s): D64.9 - Anemia, unspecified Category: Medical Code(s): D64.9 - Anemia, unspecified (8) History of hysterectomy Current visit: Yes Status: Acute Category: Medical Code(s): Z90.710 - Acquired absence of both cervix and uterus (9) Cervical spondylosis Current visit: Yes Status: Acute Category: Medical Code(s): M47.812 - Spondylosis without myelopathy or radiculopathy, cervical region (10) Renal insufficiency Current visit: Yes Status: Acute Category: Medical Code(s): N28.9 - Disorder of kidney and ureter, unspecified (11) UTI (urinary tract infection) Current visit: Yes Status: Acute Qualifiers: Urinary tract infection type: site unspecified Hematuria presence: without hematuria Qualified Code(s): N39.0 - Urinary tract infection, site not spe cified Category: Medical Code(s): N39.0 - Urinary tract infection, site not specified (12) C. difficile enteritis Current visit: Yes Status: Acute Category: Medical Code(s): A04.72 - Enterocolitis due to Clostridium difficile, not specified as recurrent (13) Atrial fibrillation with rapid ventricular response Current visit: Yes Status: Acute Category: Medical Code(s): I48.91 - Unspecified atrial fibrillation (14) Cardiomyopathy Current visit: Yes Status: Acute Category: Medical Code(s): I42.9 - Cardiomyopathy, unspecified - Assessment and plan all Dx Assessment and Plan for all problems:: 1. IV lopressor 5 mg now 2. Increase metoprolol 50 mg to TID for BP and HR control 3. Supplement potassium 4. Echo report pending but appears to show mild cardiomyopathy (possibly related to A. fib) 5. CKD stage 3/4 on admission now improved to stage 2. Consider adding CLARISA or ARB pending official echo results. 6. check BMP and mag in AM
--- NOTE | 2019-03-30 13:53 | Progress Note ---
Internal Medicine - PN: Subj *Date: 03/30/19 *Time: 13:53 Exam Vital signs and Labs for Last 24 Hours: Temp Pulse Resp BP Pulse Ox 98.5 F 84 20 172/56 H 97 03/30/19 08:00 03/30/19 08:00 03/30/19 08:00 03/30/19 08:00 03/30/19 08:00 Laboratory Results - last 24 hr 03/30/19 09:20: WBC 8.4 D, RBC 3.54 L, Hgb 9.9 L, Hct 33.8 L, MCV 95.6, MCH 28.0, MCHC 29.3 L, RDW 14.5, Plt Count 224, MPV 8.5, Neut % (Auto) 79.2, Lymph % (Auto) 13.2, [place] % (Auto) 6.6, Eos % (Auto) 0.6, Baso % (Auto) 0.3, Neut # (Auto) 6.6, Lymph # (Auto) 1.1, [place] # (Auto) 0.6, Eos # (Auto) 0.1, Baso # (Auto) 0.0 03/30/19 09:20: Sodium 147 H, Potassium 3.3 L, Chloride 115 H, Carbon Dioxide 20 L, Anion Gap 15.3 H, BUN 19 H D, Creatinine 1.16 H, Estimated Creat Clear 30, Estimated GFR 44 L, Est GFR ( Amer) 54 L, Glucose 141 H, Calcium 7.8 L, Troponin I < 0.02 I & O for Last 24 hours: Intake & Output 03/27/19 03/28/19 03/29/19 03/30/19 23:59 23:59 23:59 23:59 Intake Total 1145 / 1145 5290 / 5290 3304 / 4283 1319 / 1319 Balance 1145 / 1145 5290 / 5290 3304 / 4283 1319 / 1319 Weight 50.972 kg 54.119 kg 54.544 kg 55.451 kg Assessment and Plan (1) Leukocytosis Current visit: Yes Status: Acute Category: Medical Code(s): D72.829 - Elevated white blood cell count, unspecified (2) Diverticulitis Current visit: Yes Status: Acute Category: Medical Code(s): K57.92 - Diverticulitis of intestine, part unspecified, without perforation or abscess without bleeding (3) Compression fracture of T10 vertebra Current visit: No Status: Acute Qualifiers: Qualified Code(s): S22.070A - Wedge compression fracture of T9-T10 vertebra, initial encounter for closed fracture Category: Medical Code(s): S22.070A - Wedge compression fracture of T9-T10 vertebra, initial encounter for closed fracture (4) History of CHF (congestive heart failure) Current visit: No Status: Acute Category: Medical Code(s): Z86.79 - Personal history of other diseases of the circulatory system (5) Hypothyroidism Current visit: No Status: Acute Qualifiers: Qualified Code(s): E03.9 - Hypothyroidism, unspecified Category: Medical Code(s): E03.9 - Hypothyroidism, unspecified (6) Severe sepsis Current visit: Yes Status: Acute Category: Medical Code(s): A41.9 - Sepsis, unspecified organism; R65.20 - Severe sepsis without septic shock (7) Anemia Current visit: Yes Status: Acute Qualifiers: Qualified Code(s): D64.9 - Anemia, unspecified Category: Medical Code(s): D64.9 - Anemia, unspecified (8) History of hysterectomy Current visit: Yes Status: Acute Category: Medical Code(s): Z90.710 - Acquired absence of both cervix and uterus (9) Cervical spondylosis Current visit: Yes Status: Acute Category: Medical Code(s): M47.812 - Spondylosis without myelopathy or radiculopathy, cervical region (10) Renal insufficiency Current visit: Yes Status: Acute Category: Medical Code(s): N28.9 - Disorder of kidney and ureter, unspecified (11) UTI (urinary tract infection) Current visit: Yes Status: Acute Qualifiers: Qualified Code(s): N39.0 - Urinary tract infection, site not specified Category: Medical Code(s): N39.0 - Urinary tract infection, site not specified (12) C. difficile enteritis Current visit: Yes Status: Acute Category: Medical Code(s): A04.72 - Enterocolitis due to Clostridium difficile, not specified as recurrent The patient's infection will respond to the chosen ABx?: Yes Is the patient receiving the right drug, dose, and route?: Yes Could a more targeted ABx be ordered?: No
--- NOTE | 2019-03-30 14:42 | Progress Note ---
Subjective Patient reports: no new complaints Narrative: Patient denies any abdominal complaints. She was noted to have some labored breathing this morning. Exam Vital signs and Labs for Last 24 Hours: Temp Pulse Resp BP Pulse Ox 98.5 F 84 20 172/56 H 97 03/30/19 08:00 03/30/19 08:00 03/30/19 08:00 03/30/19 08:00 03/30/19 08:00 Laboratory Results - last 24 hr 03/30/19 09:20: WBC 8.4 D, RBC 3.54 L, Hgb 9.9 L, Hct 33.8 L, MCV 95.6, MCH 28.0, MCHC 29.3 L, RDW 14.5, Plt Count 224, MPV 8.5, Neut % (Auto) 79.2, Lymph % (Auto) 13.2, [place] % (Auto) 6.6, Eos % (Auto) 0.6, Baso % (Auto) 0.3, Neut # (Auto) 6.6, Lymph # (Auto) 1.1, [place] # (Auto) 0.6, Eos # (Auto) 0.1, Baso # (Auto) 0.0 03/30/19 09:20: Sodium 147 H, Potassium 3.3 L, Chloride 115 H, Carbon Dioxide 20 L, Anion Gap 15.3 H, BUN 19 H D, Creatinine 1.16 H, Estimated Creat Clear 30, Estimated GFR 44 L, Est GFR ( Amer) 54 L, Glucose 141 H, Calcium 7.8 L, Troponin I < 0.02 I & O for Last 24 hours: Intake & Output 03/28/19 03/29/19 03/30/19 03/31/19 11:59 11:59 11:59 11:59 Intake Total 3560 / 3560 3613 / 3613 3180 / 3180 Balance 3560 / 3560 3613 / 3613 3180 / 3180 Weight 119 lb 5 oz 120 lb 4 oz 122 lb 3.983 oz - *Routine Abdominal Exam Present: soft Progress Note: A&P (1) Leukocytosis Status: Acute Current Visit: Yes (2) Diverticulitis Status: Acute Assessment and plan: Continue current management Current Visit: Yes (3) Compression fracture of T10 vertebra Status: Acute Current Visit: No (4) History of CHF (congestive heart failure) Status: Acute Current Visit: No (5) Hypothyroidism Status: Acute Current Visit: No (6) Severe sepsis Status: Acute Current Visit: Yes (7) Anemia Status: Acute Current Visit: Yes (8) History of hysterectomy Status: Acute Current Visit: Yes (9) Cervical spondylosis Status: Acute Current Visit: Yes (10) Renal insufficiency Status: Acute Current Visit: Yes (11) UTI (urinary tract infection) Status: Acute Current Visit: Yes (12) C. difficile enteritis Status: Acute Current Visit: Yes (13) Atrial fibrillation with rapid ventricular response Status: Acute Current Visit: Yes (14) Cardiomyopathy Status: Acute Current Visit: Yes Assessment and Plan for All Diagnoses:: Cardiology evaluating patient today.
--- NOTE | 2019-03-30 16:41 | Progress Note ---
Internal Medicine - PN: Subj *Date: 03/31/19 *Time: 12:28 Interval history: more sob this am with irreg hr - will do ekg and echo with card consult Exam Vital signs and Labs for Last 24 Hours: Temp Pulse Resp BP Pulse Ox 98.5 F 125 H 20 145/95 H 97 03/30/19 08:00 03/30/19 14:45 03/30/19 08:00 03/30/19 14:45 03/30/19 08:00 Laboratory Results - last 24 hr 03/30/19 09:20: WBC 8.4 D, RBC 3.54 L, Hgb 9.9 L, Hct 33.8 L, MCV 95.6, MCH 28.0, MCHC 29.3 L, RDW 14.5, Plt Count 224, MPV 8.5, Neut % (Auto) 79.2, Lymph % (Auto) 13.2, [place] % (Auto) 6.6, Eos % (Auto) 0.6, Baso % (Auto) 0.3, Neut # (Auto) 6.6, Lymph # (Auto) 1.1, [place] # (Auto) 0.6, Eos # (Auto) 0.1, Baso # (Auto) 0.0 03/30/19 09:20: Sodium 147 H, Potassium 3.3 L, Chloride 115 H, Carbon Dioxide 20 L, Anion Gap 15.3 H, BUN 19 H D, Creatinine 1.16 H, Estimated Creat Clear 30, Estimated GFR 44 L, Est GFR ( Amer) 54 L, Glucose 141 H, Calcium 7.8 L, Troponin I < 0.02 I & O for Last 24 hours: Intake & Output 03/28/19 03/29/19 03/30/19 03/31/19 11:59 11:59 11:59 11:59 Intake Total 3560 / 3560 3613 / 3613 3180 / 3180 Balance 3560 / 3560 3613 / 3613 3180 / 3180 Weight 119 lb 5 oz 120 lb 4 oz 122 lb 3.983 oz - Constitutional no acute distress - *Routine HEENT Exam Head: Present: normocephalic Eye: Present: EOMI, PERRL ENT: Present: mucous membranes dry - *Routine Neck Exam Present: supple - *Routine Respiratory Exam Present: decreased breath sounds - *Routine Cardiovascular Exam Present: murmur, irregular rhythm - *Routine Extremities Exam Absent: calf tenderness - *Routine Skin Exam Present: intact - *Routine Neurological Exam Present: alert, CN II-XII intact - Routine Psychiatric Exam Present: normal affect Assessment and Plan (1) Leukocytosis Current visit: Yes Status: Acute Category: Medical Code(s): D72.829 - Elevated white blood cell count, unspecified (2) Diverticulitis Current visit: Yes Status: Acute Category: Medical Code(s): K57.92 - Diverticulitis of intestine, part unspecified, without perforation or abscess without bleeding (3) Compression fracture of T10 vertebra Current visit: No Status: Acute Qualifiers: Encounter type: initial encounter Qualified Code(s): S22.070A - Wedge compression fracture of T9-T10 vertebra, initial encounter for closed fracture Category: Medical Code(s): S22.070A - Wedge compression fracture of T9-T10 vertebra, initial encounter for closed fracture (4) History of CHF (congestive heart failure) Current visit: No Status: Acute Category: Medical Code(s): Z86.79 - Pe rsonal history of other diseases of the circulatory system (5) Hypothyroidism Current visit: No Status: Acute Qualifiers: Hypothyroidism type: acquired Qualified Code(s): E03.9 - Hypothyroidism, unspecified Category: Medical Code(s): E03.9 - Hypothyroidism, unspecified (6) Severe sepsis Current visit: Yes Status: Acute Category: Medical Code(s): A41.9 - Sepsis, unspecified organism; R65.20 - Severe sepsis without septic shock (7) Anemia Current visit: Yes Status: Acute Qualifiers: Anemia type: unspecified type Qualified Code(s): D64.9 - Anemia, unspecified Category: Medical Code(s): D64.9 - Anemia, unspecified (8) History of hysterectomy Current visit: Yes Status: Acute Category: Medical Code(s): Z90.710 - Acquired absence of both cervix and uterus (9) Cervical spondylosis Current visit: Yes Status: Acute Category: Medical Code(s): M47.812 - Spondylosis without myelopathy or radiculopathy, cervical region (10) Renal insufficiency Current visit: Yes Status: Acute Category: Medical Code(s): N28.9 - Disorder of kidney and ureter, unspecified (11) UTI (urinary tract infection) Current visit: Yes Status: Acute Qualifiers: Urinary tract infection type: site unspecified Hematuria presence: without hematuria Qualified Code(s): N39.0 - Urinary tract infection, site not specified Category: Medical Code(s): N39.0 - Urinary tract infection, site not specified (12) C. difficile enteritis Current visit: Yes Status: Acute Category: Medical Code(s): A04.72 - Enterocolitis due to Clostridium difficile, not specified as recurrent (13) Atrial fibrillation with rapid ventricular response Current visit: Yes Status: Acute Category: Medical Code(s): I48.91 - Unspecified atrial fibrillation (14) Cardiomyopathy Current visit: Yes Status: Acute Category: Medical Code(s): I42.9 - Cardiomyopathy, unspecified (15) Hypomagnesemia Current visit: Yes Status: Acute Category: Medical Code(s): E83.42 - Hypomagnesemia
--- NOTE | 2019-03-30 18:59 | Cardiology Report ---
APPROVED REPORT EXAM: Comprehensive 2D, Doppler, and color-flow Echocardiogram Manager [employer]: Gill French CRT Ht: 4 ft 11 in Wt: 122lbs BSA: 1.49 BP: 105/45 mmHg Indications: Congestive Heart Failure, Murmur, CAD, sepsis, dementia 2D Dimensions IVSd 1.10 cm LVEF (Visual) 40.00 % PWd 1.00 cm LVDd 3.20 cm LVDs 2.60 cm LVOT 2.00 cm (M/F) 1.5-2.5 M-Mode Dimensions LA Diam 4.10 cm (1.9-4.0)Ao Diam 2.90 cm (2.0-3.7) AV Cusp 1.90 cm (1.5-2.6) Aortic Valve AoV Peak Lorenzo. 117.00 (50-130 cm/s)AI PHT 362.00 ms AO Peak GR. 5.00 mmHg Pulmonary Valve PA Accel Time 123.00 (>120 msec) Tricuspid Valve TR P. [id number] cm/sRAP Estimate 10.00 mmHg RVSP 45.00 mmHg Left Ventricle Left atrium is moderately enlarged, left ventricle is normal size, mild concentric left ventricular hypertrophy, visually estimated ejection fraction 45%, there appears to be moderate hypokinesis involving the basal septum and inferior basal wall. Endocardial surfaces are poorly visualized. Diastolic parameters are inconclusive. Diastolic E wave with restrictive filling pattern suggestive of raise left ventricular end-diastolic pressure. Right Ventricle Right atrium and right ventricular mildly enlarged with normal contractility. Aortic Valve Aortic valve is thickened and calcified, leaflet continue to display good mobility, there is no aortic stenosis, there is mild aortic insufficiency. Mitral Valve Mitral valve has mitral annular calcifications, which extends both anterior posterior mitral leaflet, there is no mitral stenosis, there is moderate to severe mitral regurgitation. Doppler evidence of raise left ventricular end-diastolic pressure. Tricuspid Valve Tricuspid valve leaflets are minimally thickened, there is mild tricuspid regurgitation, calculated right ventricular systolic pressure is 56 mmHg consistent with moderately elevated right ventricular systolic pressure, inferior vena cava is not well-visualized. Pulmonic Valve Pulmonic valve is poorly visualized. Great Vessels Aortic root is normal size. Pericardium No significant pericardial effusion noted. Conclusion 1. Moderately enlarged left atrium, normal left ventricular size, mild concentric left ventricular hypertrophy, visually estimated ejection fraction 45% with segmental wall motion abnormality described above, endocardial surfaces are poorly visualized, diastolic parameters are inconclusive, Doppler evidence of raise left ventricular end-diastolic pressure. 2. Mildly enlarged right ventricle with normal contractility. 3. Thickened and calcified aortic valve without aortic stenosis, there is mild aortic insufficiency. 4. Moderate to severe mitral and mild tricuspid regurgitation, calculated right ventricular systolic pressure is 56 mmHg consistent with moderate pulmonary hypertension. 5. No significant pericardial effusion noted. Inferior vena cava is not well-visualized. Electronically signed by : Nile Fink, 03/30/2019 18:58:12
[2019-03-31 07:01] LABS: Anion Gap 14.9 mEq/L (5-15); Calcium 7.8 mg/dL (8.5-10.1)
--- NOTE | 2019-03-31 08:35 | Progress Note ---
Subjective Date: 03/31/19 Time: 08:31 Principal diagnosis: A. fib with RVR, CHF Interval history: 88-year-old white female in bed in no acute distress. Relates a rough night but is not specific in details. Denies chest pain, pressure or tightness. Exam Vital signs and Labs for Last 24 Hours: Temp Pulse Resp BP Pulse Ox 98.3 F 81 18 146/67 H 96 03/31/19 04:00 03/31/19 04:00 03/31/19 04:00 03/31/19 04:00 03/31/19 04:00 Laboratory Results - last 24 hr 03/30/19 09:20: WBC 8.4 D, RBC 3.54 L, Hgb 9.9 L, Hct 33.8 L, MCV 95.6, MCH 28.0, MCHC 29.3 L, RDW 14.5, Plt Count 224, MPV 8.5, Neut % (Auto) 79.2, Lymph % (Auto) 13.2, [place] % (Auto) 6.6, Eos % (Auto) 0.6, Baso % (Auto) 0.3, Neut # (Auto) 6.6, Lymph # (Auto) 1.1, [place] # (Auto) 0.6, Eos # (Auto) 0.1, Baso # (Auto) 0.0 03/30/19 09:20: Sodium 147 H, Potassium 3.3 L, Chloride 115 H, Carbon Dioxide 20 L, Anion Gap 15.3 H, BUN 19 H D, Creatinine 1.16 H, Estimated Creat Clear 30, Estimated GFR 44 L, Est GFR ( Amer) 54 L, Glucose 141 H, Calcium 7.8 L, Troponin I < 0.02 03/31/19 06:08: Sodium 148 H, Potassium 2.9 L*, Chloride 115 H, Carbon Dioxide 21, Anion Gap 14.9, BUN 16, Creatinine 1.07 H, Estimated Creat Clear 33, Estimated GFR 49 L, Est GFR ( Amer) 59, Glucose 113 H, Calcium 7.8 L 03/31/19 06:08: Magnesium 1.0 L I & O for Last 24 hours: Intake & Output 03/28/19 03/29/19 03/30/19 03/31/19 11:59 11:59 11:59 11:59 Intake Total 3560 / 3560 3613 / 3613 3180 / 3180 860 / 860 Balance 3560 / 3560 3613 / 3613 3180 / 3180 860 / 860 Weight 119 lb 5 oz 120 lb 4 oz 122 lb 3.983 oz 122 lb 5 oz - *Routine Respiratory Exam Present: CTA bilaterally, diminished air movement. Absent: accessory muscle use, rales, rhonchi, wheezes - *Routine Cardiovascular Exam Present: irregularly irregular. Absent: murmur, gallop, rubs Progress Note: A&P (1) Leukocytosis Status: Acute Current Visit: Yes (2) Diverticulitis Status: Acute Current Visit: Yes (3) Compression fracture of T10 vertebra Status: Acute Current Visit: No (4) History of CHF (congestive heart failure) Status: Acute Current Visit: No (5) Hypothyroidism Status: Acute Current Visit: No (6) Severe sepsis Status: Acute Current Visit: Yes (7) Anemia Status: Acute Current Visit: Yes (8) History of hysterectomy Status: Acute Current Visit: Yes (9) Cervical spondylosis Status: Acute Current Visit: Yes (10) Renal insufficiency Status: Acute Current Visit: Yes (11) UTI (urinary tract infection) Status: Acute Current Visit: Yes (12) C. difficile enteritis Status: Acute Current Visit: Yes (13) Atrial fibrillation with rapid ventricular response Status: Acute Current Visit: Yes (14) Cardiomyopathy Status: Acute Current Visit: Yes (15) Hypokalemia Status: Acute Current Visit: Yes (16) Hypomagnesemia Status: Acute Current Visit: Yes Assessment and Plan for All Diagnoses:: 1. Echocardiogram shows mild cardiomyopathy with moderate to severe MR. Continue IV diuretic therapy for acute on chronic combined systolic and diastolic congestive heart failure. Add losartan (hospital substitutes Avapro) for cardiomyopathy. Follow renal status. 2. Hypokalemia, will replace with both p.o. and IV supplementation. 3. Hypomagnesemia, replace with IV supplementation. 4. Atrial fibrillation, rate control has improved. No anticoagulation due to history of recurrent falls.
[2019-03-31 11:37] LABS: Microscopic, Urine URINE MICROSCOPIC (MICROSCOPIC)
[2019-03-31 11:39] LABS: Appearance,Urine CLEAR (Clear); Bilirubin,Urine Negative (Negative); Blood, Urine Negative (Negative); Color,Urine YELLOW (Yellow); Glucose,Urine (UA) Negative (Negative); Ketones,Urine Negative (Negative); Leukocyte Esterase,Urine Negative (Negative); PH,Urine 5.5 (5.0-8.5); Protein,Urine Negative (Negative); Urobilinogen,Urine 0.2 EU/dl (0.2)
[2019-03-31 12:28] LABS: Bacteria,Urine Trace /lpf; Squamous Epithelial Cell,Urine Occasional #/hpf (0-5); WBC,Urine Occasional #/hpf (0-3)
--- NOTE | 2019-03-31 13:10 | Progress Note ---
Internal Medicine - PN: Subj *Date: 03/31/19 *Time: 18:15 Interval history: 88-year-old female patient lying in bed resting quietly this morning. Denies any chest pain or shortness of breath, does not answer any questions further than this. Nursing does report that patient's bottom is red will order nystatin powder for this. Blood cultures x2 and urine culture all negative Exam Vital signs and Labs for Last 24 Hours: Temp Pulse Resp BP Pulse Ox 98.2 F 74 20 155/59 H 97 03/31/19 08:00 03/31/19 08:00 03/31/19 08:00 03/31/19 08:00 03/31/19 08:00 Laboratory Results - last 24 hr 03/31/19 06:08: Sodium 148 H, Potassium 2.9 L*, Chloride 115 H, Carbon Dioxide 21, Anion Gap 14.9, BUN 16, Creatinine 1.07 H, Estimated Creat Clear 33, Estimated GFR 49 L, Est GFR ( Amer) 59, Glucose 113 H, Calcium 7.8 L 03/31/19 06:08: Magnesium 1.0 L 03/31/19 09:15: Urine Color Yellow, Urine Appearance Clear, Urine pH 5.5, Ur Specific [place] 1.010, Urine Protein Negative, Urine Glucose (UA) Negative, Urine Ketones Negative, Urine Blood Negative, Urine Nitrate Negative, Urine Bilirubin Negative, Urine Urobilinogen 0.2, Ur Leukocyte Esterase Negative, Urine WBC Occasional, Ur Squamous Epith Cells Occasional, Urine Bacteria Trace I & O for Last 24 hours: Intake & Output 03/28/19 03/29/19 03/30/19 03/31/19 23:59 23:59 23:59 23:59 Intake Total 5290 / 5290 3304 / 4283 1878 420 / 420 Balance 5290 / 5290 3304 / 4283 1878 / 1878 420 / 420 Weight 119 lb 5 oz 120 lb 4 oz 122 lb 3.983 oz 122 lb 5 oz - Constitutional no acute distress - *Routine HEENT Exam Head: Present: normocephalic, atraumatic. Absent: scalp tenderness, tenderness of temporal artery Eye: Present: EOMI, PERRL. Absent: conjunctival icterus, periorbital tenderness - *Routine Neck Exam Present: supple, full ROM. Absent: JVD, tracheal deviation - *Routine Respiratory Exam Present: decreased breath sounds, CTA bilaterally. Absent: accessory muscle use - *Routine Cardiovascular Exam Present: murmur - *Routine Abdominal Exam Present: soft, normoactive bowel sounds. Absent: tenderness - *Routine Extremities Exam Absent: cyanosis, edema, tenderness - Routine Back/Spine/Pelvis Exam Back/Spine: Present: full ROM. Absent: CVA tenderness, pain with flexion - *Routine Skin Exam Present: intact. Absent: cyanosis, erythema - *Routine Neurological Exam Present: alert, normal reflexes. Absent: oriented X3 Assessment and Plan (1) Leukocytosis Current visit: Yes Status: Acute Category: Medical Code(s): D72.829 - Elevated white blood cell count, unspecified (2) Diverticulitis Current visit: Yes Status: Acute Category: Medical Code(s): K57.92 - Diverticulitis of intestine, part unspecified, without perforation or abscess without bleeding (3) Compression fracture of T10 vertebra Current visit: No Status: Acute Qualifiers: Encounter type: initial encounter Qualified Code(s): S22.070A - Wedge compression fracture of T9-T10 vertebra, initial encounter for closed fracture Category: Medical Code(s): S22.070A - Wedge compression fracture of T9-T10 teresa tebra, initial encounter for closed fracture (4) History of CHF (congestive heart failure) Current visit: No Status: Acute Category: Medical Code(s): Z86.79 - Personal history of other diseases of the circulatory system (5) Hypothyroidism Current visit: No Status: Acute Qualifiers: Hypothyroidism type: acquired Qualified Code(s): E03.9 - Hypothyroidism, unspecified Category: Medical Code(s): E03.9 - Hypothyroidism, unspecified (6) Severe sepsis Current visit: Yes Status: Acute Category: Medical Code(s): A41.9 - Sepsis, unspecified organism; R65.20 - Severe sepsis without septic shock (7) Anemia Current visit: Yes Status: Acute Qualifiers: Anemia type: unspecified type Qualified Code(s): D64.9 - Anemia, unspecified Category: Medical Code(s): D64.9 - Anemia, unspecified (8) History of hysterectomy Current visit: Yes Status: Acute Category: Medical Code(s): Z90.710 - Acquired absence of both cervix and uterus (9) Cervical spondylosis Current visit: Yes Status: Acute Category: Medical Code(s): M47.812 - Spondylosis without myelopathy or radiculopathy, cervical region (10) Renal insufficiency Current visit: Yes Status: Acute Category: Medical Code(s): N28.9 - Disorder of kidney and ureter, unspecified (11) UTI (urinary tract infection) Current visit: Yes Status: Acute Qualifiers: Urinary tract infection type: site unspecified Hematuria presence: without hematuria Qualified Code(s): N39.0 - Urinary tract infection, site not specified Category: Medical Code(s): N39.0 - Urinary tract infection, site not specified (12) C. difficile enteritis Current visit: Yes Status: Acute Category: Medical Code(s): A04.72 - Enterocolitis due to Clostridium difficile, not specified as recurrent (13) Atrial fibrillation with rapid ventricular response Current visit: Yes Status: Acute Category: Medical Code(s): I48.91 - Unspecified atrial fibrillation (14) Cardiomyopathy Current visit: Yes Status: Acute Category: Medical Code(s): I42.9 - Cardiomyopathy, unspecified (15) Hypomagnesemia Current visit: Yes Status: Acute Category: Medical Code(s): E83.42 - Hypomagnesemia - Assessment and plan all Dx Assessment and Plan for all problems:: Rounds completed, Dr. Valenzuela will see this afternoon, all orders per Dr. Valenzuela Cards has seen and recommends: 1. Echocardiogram shows mild cardiomyopathy with moderate to severe MR. Continue IV diuretic therapy for acute on chronic combined systolic and diastolic congestive heart failure. Add losartan (hospital substitutes Avapro) for cardiomyopathy. Follow renal status. 2. Hypokalemia, will replace with both p.o. and IV supplementation. 3. Hypomagnesemia, replace with IV supplementation. 4. Atrial fibrillation, rate control has improved. No anticoagulation due to history of recurrent falls. 1. Labs in AM The patient's infection will respond to the chosen ABx?: Yes Is the patient receiving the right drug, dose, and route?: Yes Could a more targeted ABx be ordered?: No
--- NOTE | 2019-03-31 20:06 | Electrocardiograph Report ---
APPROVED REPORT Exam: Resting ECG HR:125 bpm ECG Measurements Heart Rate 125 AXES QRSd 74 QRS 13 QT 350 T218 QTc 505 <Conclusion> Atrial fibrillation with rapid ventricular response Nonspecific ST and T wave abnormality, probably digitalis effect Abnormal ECG Electronically signed by : Rodrigo Pacheco, 03/31/2019 20:05:46
[2019-04-01 07:03] LABS: Basophils % 0.2 % (0.1-2.0); Eosinophils # 0.1 K/mm3 (0.0-0.4); Eosinophils % 1.3 % (0.1-12.0); Hematocrit 29.8 % (37.0-47.0); Lymphocytes % 11.3 % (10-50); Mean Corpuscular HGB Conc 30.1 g/dL (31.8-35.4); Mean Corpuscular Volume 92.6 fl (81-99); Mean Platelet Volume 8.5 fl (7.4-10.4); Monocytes # 0.8 K/mm3 (0.1-1.0); Monocytes % 8.2 % (1.7-9.3); Neutrophils # 7.3 K/mm3 (1.8-7.8); Platelet Count 206 K/mm3 (142-424); Red Blood Count 3.22 M/mm3 (4.20-5.40); Red Cell Distribution Width 14.9 % (11.5-17.5); White Blood Count 9.3 K/mm3 (4.8-10.8)
[2019-04-01 07:49] LABS: Anion Gap 13.1 mEq/L (5-15); Calcium 8.2 mg/dL (8.5-10.1)
--- NOTE | 2019-04-01 08:56 | Progress Note ---
Subjective Patient reports: no new complaints, still having pain, pain is less Exam Vital signs and Labs for Last 24 Hours: Temp Pulse Resp BP Pulse Ox 98.7 F 73 20 157/71 H 96 04/01/19 08:00 04/01/19 08:00 04/01/19 08:00 04/01/19 08:00 04/01/19 08:00 Laboratory Results - last 24 hr 03/31/19 09:15: Urine Color Yellow, Urine Appearance Clear, Urine pH 5.5, Ur Specific [place] 1.010, Urine Protein Negative, Urine Glucose (UA) Negative, Urine Ketones Negative, Urine Blood Negative, Urine Nitrate Negative, Urine Bilirubin Negative, Urine Urobilinogen 0.2, Ur Leukocyte Esterase Negative, Urine WBC Occasional, Ur Squamous Epith Cells Occasional, Urine Bacteria Trace 04/01/19 06:41: WBC 9.3, RBC 3.22 L, Hgb 9.0 L, Hct 29.8 L, MCV 92.6, MCH 27.8, MCHC 30.1 L, RDW 14.9, Plt Count 206, MPV 8.5, Neut % (Auto) 79.0, Lymph % (Auto) 11.3, [place] % (Auto) 8.2, Eos % (Auto) 1.3, Baso % (Auto) 0.2, Neut # (Auto) 7.3, Lymph # (Auto) 1.0, [place] # (Auto) 0.8, Eos # (Auto) 0.1, Baso # (Auto) 0.0 04/01/19 06:41: Sodium 148 H, Potassium 4.1 D, Chloride 116 H, Carbon Dioxide 23, Anion Gap 13.1, BUN 15, Creatinine 1.08 H, Estimated Creat Clear 33, Estimated GFR 48 L, Est GFR ( Amer) 58 L, Glucose 127 H, Calcium 8.2 L I & O for Last 24 hours: Intake & Output 03/29/19 03/30/19 03/31/19 04/01/19 11:59 11:59 11:59 11:59 Intake Total 3613 / 3613 3180 / 3180 1080 / 1080 1720 / 1720 Output Total 700 / 700 Balance 3613 / 3613 3180 / 3180 1080 / 1080 1020 / 1020 Weight 120 lb 4 oz 122 lb 3.983 oz 122 lb 5 oz 122 lb 5 oz Microbiology Reports for the Last 24 Hours: Microbiology 03/26/19 20:00 Blood Blood Culture - Final NO GROWTH AFTER 5 DAYS 03/26/19 20:00 Blood Blood Culture - Final NO GROWTH AFTER 5 DAYS - Constitutional no acute distress - *Routine Abdominal Exam Present: soft, tenderness Comments: Less tenderness Progress Note: A&P (1) Leukocytosis Status: Resolved Current Visit: Yes (2) Diverticulitis Status: Acute Assessment and plan: Continue to improve Continue antibiotics for now Current Visit: Yes (3) Compression fracture of T10 vertebra Status: Acute Current Visit: No (4) History of CHF (congestive heart failure) Status: Acute Current Visit: No (5) Hypothyroidism Status: Acute Current Visit: No (6) Severe sepsis Status: Acute Current Visit: Yes (7) Anemia Status: Acute Current Visit: Yes (8) History of hysterectomy Status: Acute Current Visit: Yes (9) Cervical spondylosis Status: Acute Current Visit: Yes (10) Renal insufficiency Status: Acute Current Visit: Yes (11) UTI (urinary tract infection) Status: Acute Current Visit: Yes (12) C. difficile enteritis Status: Acute Assessment and plan: Complete course of antibiotics Current Visit: Yes (13) Atrial fibrillation with rapid ventricular response Status: Acute Current Visit: Yes (14) Cardiomyopathy Status: Acute Current Visit: Yes (15) Hypomagnesemia Status: Acute Current Visit: Yes
--- NOTE | 2019-04-01 09:45 | Progress Note ---
Internal Medicine - PN: Subj *Date: 04/01/19 *Time: 09:41 Interval history: doing better but still with abd pain and diarrhea - she has dec po intake at this time Exam Vital signs and Labs for Last 24 Hours: Temp Pulse Resp BP Pulse Ox 98.7 F 73 20 157/71 H 96 04/01/19 08:00 04/01/19 08:00 04/01/19 08:00 04/01/19 08:00 04/01/19 08:00 Laboratory Results - last 24 hr 03/31/19 09:15: Urine Color Yellow, Urine Appearance Clear, Urine pH 5.5, Ur Specific [place] 1.010, Urine Protein Negative, Urine Glucose (UA) Negative, Urine Ketones Negative, Urine Blood Negative, Urine Nitrate Negative, Urine Bi lirubin Negative, Urine Urobilinogen 0.2, Ur Leukocyte Esterase Negative, Urine WBC Occasional, Ur Squamous Epith Cells Occasional, Urine Bacteria Trace 04/01/19 06:41: WBC 9.3, RBC 3.22 L, Hgb 9.0 L, Hct 29.8 L, MCV 92.6, MCH 27.8, MCHC 30.1 L, RDW 14.9, Plt Count 206, MPV 8.5, Neut % (Auto) 79.0, Lymph % (Auto) 11.3, [place] % (Auto) 8.2, Eos % (Auto) 1.3, Baso % (Auto) 0.2, Neut # (Auto) 7.3, Lymph # (Auto) 1.0, [place] # (Auto) 0.8, Eos # (Auto) 0.1, Baso # (Auto) 0.0 04/01/19 06:41: Sodium 148 H, Potassium 4.1 D, Chloride 116 H, Carbon Dioxide 23, Anion Gap 13.1, BUN 15, Creatinine 1.08 H, Estimated Creat Clear 33, Estimated GFR 48 L, Est GFR ( Amer) 58 L, Glucose 127 H, Calcium 8.2 L I & O for Last 24 hours: Intake & Output 03/29/19 03/30/19 03/31/19 04/01/19 11:59 11:59 11:59 11:59 Intake Total 3613 / 3613 3180 / 3180 1080 / 1080 1820 / 1820 Output Total 700 / 700 Balance 3613 / 3613 3180 / 3180 1080 / 1080 1120 / 1120 Weight 120 lb 4 oz 122 lb 3.983 oz 122 lb 5 oz 122 lb 5 oz Microbiology Reports for the Last 24 Hours: Microbiology 03/26/19 20:00 Blood Blood Culture - Final NO GROWTH AFTER 5 DAYS 03/26/19 20:00 Blood Blood Culture - Final NO GROWTH AFTER 5 DAYS - Constitutional thin, chronically ill appearing - *Routine HEENT Exam Head: Present: normocephalic Eye: Present: EOMI, PERRL ENT: Present: mucous membranes dry - *Routine Neck Exam Absent: JVD - *Routine Respiratory Exam Present: decreased breath sounds - *Routine Cardiovascular Exam Present: murmur, S4, irregular rhythm - *Routine Abdominal Exam Present: soft, tenderness - *Routine Extremities Exam Absent: edema - *Routine Skin Exam Present: intact - *Routine Neurological Exam Present: alert, CN II-XII intact - Routine Psychiatric Exam Present: unable to assess Assessment and Plan (1) Leukocytosis Current visit: Yes Status: Resolved Category: Medical Code(s): D72.829 - Elevated white blood cell count, unspecified (2) Diverticulitis Current visit: Yes Status: Acute Category: Medical Code(s): K57.92 - Diverticulitis of intestine, part unspecified, without perforation or abscess without bleeding (3) Compression fracture of T10 vertebra Current visit: No Status: Acute Qualifiers: Encounter type: initial encounter Qualified Code(s): S22.070A - Wedge compression fracture of T9-T10 vertebra, initial encounter for closed fracture Category: Medical Code(s): S22.070A - Wedge compression fracture of T9-T10 vertebra, initial encounter for closed fracture (4) History of CHF (congestive heart failure) Current visit: No Status: Acute Category: Medical Code(s): Z86.79 - Personal history of other diseases of the circulatory system (5) Hypothyroidism Current visit: No Status: Acute Qualifiers: Hypothyroidism type: acquired Qualified Code(s): E03.9 - Hypothyroidism, unspecified Category: Medical Code(s): E03.9 - Hypothyroidism, unspecified (6) Severe sepsis Current visit: Yes Status: Acute Category: Medical Code(s): A41.9 - Sepsis, unspecified organism; R65.20 - Severe sepsis without septic shock (7) Anemia Current visit: Yes Status: Acute Qualifiers: Anemia type: unspecified type Qualified Code(s): D64.9 - Anemia, unspecified Category: Medical Code(s): D64.9 - Anemia, unspecified (8) History of hysterectomy Current visit: Yes Status: Acute Category: Medical Code(s): Z90.710 - Acquired absence of both cervix and uterus (9) Cervical spondylosis Current visit: Yes Status: Acute Category: Medical Code(s): M47.812 - Spondylosis without myelopathy or radiculopathy, cervical region (10) Renal insufficiency Current visit: Yes Status: Acute Category: Medical Code(s): N28.9 - Disorder of kidney and ureter, unspecified (11) UTI (urinary tract infection) Current visit: Yes Status: Acute Qualifiers: Urinary tract infection type: site unspecified Hematuria presence: without hematuria Qualified Code(s): N39.0 - Urinary tract infection, site not specified Category: Medical Code(s): N39.0 - Urinary tract infection, site not specified (12) C. difficile enteritis Current visit: Yes Status: Acute Category: Medical Code(s): A04.72 - Enterocolitis due to Clostridium difficile, not specified as recurrent (13) Atrial fibrillation with rapid ventricular response Current visit: Yes Status: Acute Category: Medical Code(s): I48.91 - Unspecified atrial fibrillation (14) Cardiomyopathy Current visit: Yes Status: Acute Category: Medical Code(s): I42.9 - Car diomyopathy, unspecified (15) Hypomagnesemia Current visit: Yes Status: Acute Category: Medical Code(s): E83.42 - Hypomagnesemia (16) LVH (left ventricular hypertrophy) Current visit: Yes Status: Acute Category: Medical Code(s): I51.7 - Cardiomegaly (17) Pulmonary HTN Current visit: Yes Status: Acute Category: Medical Code(s): I27.20 - Pulmonary hypertension, unspecified (18) Mitral regurgitation Current visit: Yes Status: Acute Qualifiers: Cardiac valve disease etiology: etiology unspecified Qualified Code(s): I34.0 - Nonrheumatic mitral (valve) insufficiency Category: Medical Code(s): I34.0 - Nonrheumatic mitral (valve) insufficiency (19) Biventricular CHF (congestive heart failure) Current visit: Yes Status: Acute Category: Medical Code(s): I50.82 - Biventricular heart failure
--- NOTE | 2019-04-01 13:35 | Progress Note ---
Subjective Date: 04/01/19 Time: 10:30 Principal diagnosis: A. fib with RVR, CHF Interval history: This is an 88-year-old female who is currently being treated for acute on chronic combined systolic and diastolic congestive heart failure. The patient is on oral Lasix at this time. She has significantly more input than she does output at this point. This morning she states that she does have some shortness of breath and pressure in her chest. She states that her swelling has gotten better but she is still really short of breath especially with exertion. This does improve with rest. She denies any fever, chills, nausea, vomiting. She states that she still has orthopnea associated with her shortness of breath. Exam Vital signs and Labs for Last 24 Hours: Temp Pulse Resp BP Pulse Ox 97.7 F 85 22 148/71 H 98 04/01/19 12:00 04/01/19 13:16 04/01/19 12:00 04/01/19 12:00 04/01/19 12:00 Laboratory Results - last 24 hr 04/01/19 06:41: WBC 9.3, RBC 3.22 L, Hgb 9.0 L, Hct 29.8 L, MCV 92.6, MCH 27.8, MCHC 30.1 L, RDW 14.9, Plt Count 206, MPV 8.5, Neut % (Auto) 79.0, Lymph % (Auto) 11.3, [place] % (Auto) 8.2, Eos % (Auto) 1.3, Baso % (Auto) 0.2, Neut # (Auto) 7.3, Lymph # (Auto) 1.0, [place] # (Auto) 0.8, Eos # (Auto) 0.1, Baso # (Auto) 0.0 04/01/19 06:41: Sodium 148 H, Potassium 4.1 D, Chloride 116 H, Carbon Dioxide 23, Anion Gap 13.1, BUN 15, Creatinine 1.08 H, Estimated Creat Clear 33, Estimated GFR 48 L, Est GFR ( Amer) 58 L, Glucose 127 H, Calcium 8.2 L 04/01/19 06:41: Troponin I < 0.02 04/01/19 06:41: Magnesium 1.6 D I & O for Last 24 hours: Intake & Output 09/29/03/30/19 03/31/19 04/01/19 23:59 23:59 23:59 23:59 Intake Total 3304 / 4283 1878 / 1878 2070 / 207 270 / 270 Output Total 700 / 700 Balance 3304 / 4283 1878 / 1878 1370 / 1370 270 / 270 Weight 120 lb 4 oz 122 lb 3.983 oz 122 lb 5 oz 122 lb 5 oz Microbiology Reports for the Last 24 Hours: Microbiology 03/26/19 20:00 Blood Blood Culture - Final NO GROWTH AFTER 5 DAYS 03/26/19 20:00 Blood Blood Culture - Final NO GROWTH AFTER 5 DAYS Narrative: Her telemetry strip shows sinus rhythm with a rate of 84 - *Routine HEENT Exam Head: Present: normocephalic, atraumatic Eye: Present: EOMI, PERRL ENT: Present: mucous membranes moist - *Routine Neck Exam Present: supple, full ROM, normal carotid upstroke. Absent: JVD, carotid bruit, lymphadenopathy - *Routine Respiratory Exam Present: decreased breath sounds, rales - *Routine Cardiovascular Exam Present: RRR, Normal S1, Normal S2, murmur - *Routine Abdominal Exam Present: soft, normoactive bowel sounds. Absent: tenderness, distended - *Routine Extremities Exam Present: full ROM, pulses intact, normal capillary refill. Absent: cyanosis, clubbing, edema - *Routine Skin Exam Present: intact, warm. Absent: erythema, rash - *Routine Neurological Exam Present: alert, oriented X3 - Detailed Eye Exam Eyelids: Left normal inspection Progress Note: A&P (1) Biventricular CHF (congestive heart failure) Status: Acute Current Visit: Yes (2) Cardiomyopathy Status: Acute Current Visit: Yes (3) Atrial fibrillation with rapid ventricular response Status: Acute Current Visit: Yes (4) Leukocytosis Status: Resolved Current Visit: Yes (5) Diverticulitis Status: Acute Current Visit: Yes (6) Compression fracture of T10 vertebra Status: Acute Current Visit: No (7) Hypothyroidism Status: Acute Current Visit: No (8) Severe sepsis Status: Acute Current Visit: Yes (9) Anemia Status: Acute Current Visit: Yes (10) History of hysterectomy Status: Acute Current Visit: Yes (11) Cervical spondylosis Status: Acute Current Visit: Yes (12) Renal insufficiency Status: Acute Current Visit: Yes (13) UTI (urinary tract infection) Status: Acute Current Visit: Yes (14) C. difficile enteritis Status: Acute Current Visit: Yes (15) Hypomagnesemia Status: Acute Current Visit: Yes (16) LVH (left ventricular hypertrophy) Status: Acute Current Visit: Yes (17) Pulmonary HTN Status: Acute Current Visit: Yes (18) Mitral regurgitation Status: Acute Current Visit: Yes Assessment and Plan for All Diagnoses:: Plan: 1. The patient is being treated for acute on chronic combined systolic and diastolic congestive heart failure. The patient is having significantly more input than output. I had a long discussion with the patient about her fluid intake and trying to minimize as much fluid that she drinks daily in order to have her output greater than her input. Her congestive heart failure is likely the cause of her chest pain and shortness of breath. She has verbalized understanding. 2. We will increase her Lasix to 20 mg IV twice daily. She is to continue oral potassium replacement. 3. BMP in the morning. 4. Her blood pressure has been running a little high but at her age this is acceptable. 5. Her LDL goal is less than 100. 6. The patient does have paroxysmal atrial fibrillation. She is in sinus rhythm this morning. She is not on any anticoagulation due to her history of falls. 7. Further recommendations will be made pending the patient's response to treatment. Thank you for the opportunity to help participate in the care of this patient.
--- NOTE | 2019-04-02 07:07 | Progress Note ---
Subjective Narrative: When asked, "how are you today"... she responds "not too good". When asked, "how is your belly"... she responds "okay". When asked, "are you better than before"...she responds "oh, yes". Exam Vital signs and Labs for Last 24 Hours: Temp Pulse Resp BP Pulse Ox 98.3 F 106 H 20 149/88 H 100 04/02/19 04:00 04/02/19 05:25 04/02/19 04:00 04/02/19 04:00 04/02/19 04:00 Laboratory Results - last 24 hr 04/01/19 06:41: WBC 9.3, RBC 3.22 L, Hgb 9.0 L, Hct 29.8 L, MCV 92.6, MCH 27.8, MCHC 30.1 L, RDW 14.9, Plt Count 206, MPV 8.5, Neut % (Auto) 79.0, Lymph % (Auto) 11.3, [place] % (Auto) 8.2, Eos % (Auto) 1.3, Baso % (Auto) 0.2, Neut # (Auto) 7.3, Lymph # (Auto) 1.0, [place] # (Auto) 0.8, Eos # (Auto) 0.1, Baso # (Auto) 0.0 04/01/19 06:41: Sodium 148 H, Potassium 4.1 D, Chloride 116 H, Carbon Dioxide 23, Anion Gap 13.1, BUN 15, Creatinine 1.08 H, Estimated Creat Clear 33, Estimated GFR 48 L, Est GFR ( Amer) 58 L, Glucose 127 H, Calcium 8.2 L 04/01/19 06:41: Troponin I < 0.02 04/01/19 06:41: Magnesium 1.6 D I & O for Last 24 hours: Intake & Output 03/30/19 03/31/19 04/01/19 04/02/19 11:59 11:59 11:59 11:59 Intake Total 3180 / 3180 1080 / 1080 1820 / 1820 852 / 852 Output Total 700 / 700 1900 / 1900 Balance 3180 / 3180 1080 / 1080 1120 / 1120 -1048 / -1048 Weight 122 lb 3.983 oz 122 lb 5 oz 122 lb 5 oz 122 lb 5 oz - Constitutional no acute distress Comments: She is alert and more talkative this morning - *Routine Abdominal Exam Present: soft Comments: She remains tender; however, continued improvement noted Progress Note: A&P (1) Biventricular CHF (congestive heart failure) Status: Acute Current Visit: Yes (2) Cardiomyopathy Status: Acute Current Visit: Yes (3) Atrial fibrillation with rapid ventricular response Status: Acute Current Visit: Yes (4) Leukocytosis Status: Resolved Current Visit: Yes (5) Diverticulitis Status: Acute Assessment and plan: Overall continuing to improve. Complete course of antibiotics Current Visit: Yes (6) Compression fracture of T10 vertebra Status: Acute Current Visit: No (7) Hypothyroidism Status: Acute Current Visit: No (8) Severe sepsis Status: Acute Current Visit: Yes (9) Anemia Status: Acute Current Visit: Yes (10) History of hysterectomy Status: Acute Current Visit: Yes (11) Cervical spondylosis Status: Acute Current Visit: Yes (12) Renal insufficiency Status: Acute Current Visit: Yes (13) UTI (urinary tract infection) Status: Acute Current Visit: Yes (14) C. difficile enteritis Status: Acute Assessment and plan: Complete course of antibiotics Current Visit: Yes (15) Hypomagnesemia Status: Acute Current Visit: Yes (16) LVH (left ventricular hypertrophy) Status: Acute Current Visit: Yes (17) Pulmonary HTN Status: Acute Current Visit: Yes (18) Mitral regurgitation Status: Acute Current Visit: Yes
--- NOTE | 2019-04-02 07:51 | Progress Note ---
Subjective Date: 04/02/19 Time: 07:47 Principal diagnosis: A. fib with RVR, CHF Interval history: 88 yo WF in bed eating breakfast in NAD. Overall feeling better. Relates occasional chest pain but is unable to elaborate on how long it lasts or frequency. Exam Vital signs and Labs for Last 24 Hours: Temp Pulse Resp BP Pulse Ox 98.3 F 106 H 20 149/88 H 100 04/02/19 04:00 04/02/19 05:25 04/02/19 04:00 04/02/19 04:00 04/02/19 04:00 Laboratory Results - last 24 hr 04/01/19 06:41: Sodium 148 H, Potassium 4.1 D, Chloride 116 H, Carbon Dioxide 23, Anion Gap 13.1, BUN 15, Creatinine 1.08 H, Estimated Creat Clear 33, Estimated GFR 48 L, Est GFR ( Amer) 58 L, Glucose 127 H, Calcium 8.2 L 04/01/19 06:41: Troponin I < 0.02 04/01/19 06:41: Magnesium 1.6 D I & O for Last 24 hours: Intake & Output 03/30/19 03/31/19 04/01/19 04/02/19 11:59 11:59 11:59 11:59 Intake Total 3180 / 3180 1080 / 1080 1820 / 1820 852 / 852 Output Total 700 / 700 1900 / 1900 Balance 3180 / 3180 1080 / 1080 1120 / 1120 -1048 / -1048 Weight 122 lb 3.983 oz 122 lb 5 oz 122 lb 5 oz 122 lb 5 oz - *Routine Respiratory Exam Present: CTA bilaterally. Absent: accessory muscle use, rales, rhonchi, wheezes - *Routine Cardiovascular Exam Present: irregularly irregular. Absent: murmur, gallop, rubs - *Routine Neurological Exam Present: alert, moving all extremities Progress Note: A&P (1) Biventricular CHF (congestive heart failure) Status: Acute Current Visit: Yes (2) Cardiomyopathy Status: Acute Current Visit: Yes (3) Atrial fibrillation with rapid ventricular response Status: Acute Current Visit: Yes (4) Leukocytosis Status: Resolved Current Visit: Yes (5) Diverticulitis Status: Acute Current Visit: Yes (6) Compression fracture of T10 vertebra Status: Acute Current Visit: No (7) Hypothyroidism Status: Acute Current Visit: No (8) Severe sepsis Status: Acute Current Visit: Yes (9) Anemia Status: Acute Current Visit: Yes (10) History of hysterectomy Status: Acute Current Visit: Yes (11) Cervical spondylosis Status: Acute Current Visit: Yes (12) Renal insufficiency Status: Acute Current Visit: Yes (13) UTI (urinary tract infection) Status: Acute Current Visit: Yes (14) C. difficile enteritis Status: Acute Current Visit: Yes (15) Hypomagnesemia Status: Acute Current Visit: Yes (16) LVH (left ventricular hypertrophy) Status: Acute Current Visit: Yes (17) Pulmonary HTN Status: Acute Current Visit: Yes (18) Mitral regurgitation Status: Acute Current Visit: Yes Assessment and Plan for All Diagnoses:: 1. Mixed CHF, responding to increased diuretics but still with significant positive fluid balance for this admission. 2. Hypokalemia, resolved 3. Hypomagnesemia, resolved 4. mild cardiomyopathy with Moderate to severe MR, continue BB, CLARISA and diuretics. 5. A. fib with variable rate, continue BB. No anticoagulation due to falls.
[2019-04-02 08:18] LABS: Anion Gap 13.1 mEq/L (5-15); Calcium 8.4 mg/dL (8.5-10.1)
[2019-04-02 08:31] LABS: Basophils % 0.3 % (0.1-2.0); Eosinophils # 0.2 K/mm3 (0.0-0.4); Eosinophils % 1.9 % (0.1-12.0); Hematocrit 31.9 % (37.0-47.0); Hemoglobin 9.4 g/dL (12.2-16.2); Lymphocytes # 1.8 K/mm3 (0.7-4.5); Lymphocytes % 19.1 % (10-50); Mean Corpuscular HGB Conc 29.5 g/dL (31.8-35.4); Mean Corpuscular Volume 93.3 fl (81-99); Mean Platelet Volume 8.7 fl (7.4-10.4); Monocytes # 0.8 K/mm3 (0.1-1.0); Monocytes % 8.8 % (1.7-9.3); Neutrophils # 6.4 K/mm3 (1.8-7.8); Neutrophils % 69.8 % (37.0-80.0); Platelet Count 193 K/mm3 (142-424); Red Blood Count 3.41 M/mm3 (4.20-5.40); Red Cell Distribution Width 15.1 % (11.5-17.5); White Blood Count 9.2 K/mm3 (4.8-10.8)
--- NOTE | 2019-04-02 09:07 | Progress Note ---
Internal Medicine - PN: Subj *Date: 04/02/19 *Time: 09:03 Interval history: pt sitting up in bed states headache. Exam Vital signs and Labs for Last 24 Hours: Temp Pulse Resp BP Pulse Ox 97.9 F 114 H 18 105/47 L 93 L 04/02/19 08:48 04/02/19 08:48 04/02/19 08:48 04/02/19 08:48 04/02/19 08:48 Laboratory Results - last 24 hr 04/01/19 06:41: Troponin I < 0.02 04/01/19 06:41: Magnesium 1.6 D 04/02/19 06:30: WBC 9.2, RBC 3.41 L, Hgb 9.4 L, Hct 31.9 L, MCV 93.3, MCH 27.5, MCHC 29.5 L, RDW 15.1, Plt Count 193, MPV 8.7, Neut % (Auto) 69.8, Lymph % (Auto) 19.1, [place] % (Auto) 8.8, Eos % (Auto) 1.9, Baso % (Auto) 0.3, Neut # (Auto) 6.4, Lymph # (Auto) 1.8, [place] # (Auto) 0.8, Eos # (Auto) 0.2, Baso # (Auto) 0.0 04/02/19 06:30: Sodium 147 H, Potassium 4.1, Chloride 114 H, Carbon Dioxide 24, Anion Gap 13.1, BUN 17, Creatinine 1.14 H, Estimated Creat Clear 31, Estimated GFR 45 L, Est GFR ( Amer) 55 L, Glucose 113 H, Calcium 8.4 L I & O for Last 24 hours: Intake & Output 03/30/19 03/31/19 04/01/19 04/02/19 11:59 11:59 11:59 11:59 Intake Total 3180 / 3180 1080 / 1080 1820 / 1820 1212 / 1212 Output Total 700 / 700 1900 / 1900 Balance 3180 / 3180 1080 / 1080 1120 / 1120 -688 / -688 Weight 122 lb 3.983 oz 122 lb 5 oz 122 lb 5 oz 122 lb 5 oz - Constitutional no acute distress - *Routine HEENT Exam Head: Present: normocephalic Eye: Present: PERRL ENT: Present: mucous membranes moist - *Routine Neck Exam Present: supple. Absent: lymphadenopathy - *Routine Respiratory Exam Present: CTA bilaterally - *Routine Cardiovascular Exam Present: tachycardia - *Routine Abdominal Exam Present: soft, normoactive bowel sounds. Absent: tenderness - *Routine Extremities Exam Absent: cyanosis, clubbing, edema - *Routine Skin Exam Present: erythema, warm. Absent: rash Comments: redness to groin - *Routine Neurological Exam Present: alert, oriented X3 Assessment and Plan (1) Biventricular CHF (congestive heart failure) Current visit: Yes Status: Acute Category: Medical Code(s): I50.82 - Biventricular heart failure (2) Cardiomyopathy Current visit: Yes Status: Acute Category: Medical Code(s): I42.9 - Cardiomyopathy, unspecified (3) Atrial fibrillation with rapid ventricular response Current visit: Yes Status: Acute Category: Medical Code(s): I48.91 - Unspecified atrial fibrillation (4) Leukocytosis Current visit: Yes Status: Resolved Category: Medical Code(s): D72.829 - Elevated white blood cell count, unspecified (5) Diverticulitis Current visit: Yes Status: Acute Category: Medical Code(s): K57.92 - Diverticulitis of intestine, part unspecified, without perforation or abscess without bleeding (6) Compression fracture of T10 vertebra Current visit: No Status: Acute Qualifiers: Encounter type: initial encounter Qualified Code(s): S22.070A - Wedge compression fracture of T9-T10 vertebra, initial encounter for closed fracture Category: Medical Code(s): S22.070A - Wedge compression fracture of T9-T10 vertebra, initial encounter for closed fracture (7) Hypothyroidism Current visit: No Status: Acute Qualifiers: Hypothyroidism type: acquired Qualified Code(s): E03.9 - Hypothyroidism, unspecified Category: Medical Code(s): E03.9 - Hypothyroidism, unspecified (8) Severe sepsis Current visit: Yes Status: Acute Category: Medical Code(s): A41.9 - Sepsis, unspecified organism; R65.20 - Severe sepsis without septic shock (9) Anemia Current visit: Yes Status: Acute Qualifiers: Anemia type: unspecified type Qualified Code(s): D64.9 - Anemia, unspe cified Category: Medical Code(s): D64.9 - Anemia, unspecified (10) History of hysterectomy Current visit: Yes Status: Acute Category: Medical Code(s): Z90.710 - Acquired absence of both cervix and uterus (11) Cervical spondylosis Current visit: Yes Status: Acute Category: Medical Code(s): M47.812 - Spondylosis without myelopathy or radiculopathy, cervical region (12) Renal insufficiency Current visit: Yes Status: Acute Category: Medical Code(s): N28.9 - Disorder of kidney and ureter, unspecified (13) UTI (urinary tract infection) Current visit: Yes Status: Acute Qualifiers: Urinary tract infection type: site unspecified Hematuria presence: without hematuria Qualified Code(s): N39.0 - Urinary tract infection, site not specified Category: Medical Code(s): N39.0 - Urinary tract infection, site not specified (14) C. difficile enteritis Current visit: Yes Status: Acute Category: Medical Code(s): A04.72 - Enterocolitis due to Clostridium difficile, not specified as recurrent (15) Hypomagnesemia Current visit: Yes Status: Acute Category: Medical Code(s): E83.42 - Hypomagnesemia (16) LVH (left ventricular hypertrophy) Current visit: Yes Status: Acute Category: Medical Code(s): I51.7 - C ardiomegaly (17) Pulmonary HTN Current visit: Yes Status: Acute Category: Medical Code(s): I27.20 - Pulmonary hypertension, unspecified (18) Mitral regurgitation Current visit: Yes Status: Acute Qualifiers: Cardiac valve disease etiology: etiology unspecified Qualified Code(s): I34.0 - Nonrheumatic mitral (valve) insufficiency Category: Medical Code(s): I34.0 - Nonrheumatic mitral (valve) insufficiency - Assessment and plan all Dx Assessment and Plan for all problems:: Rounded with Dr. Valenzuela all orders per Nicolas
[2019-04-03 07:06] LABS: Basophils % 0.4 % (0.1-2.0); Eosinophils # 0.3 K/mm3 (0.0-0.4); Eosinophils % 3.7 % (0.1-12.0); Hematocrit 31.3 % (37.0-47.0); Hemoglobin 9.5 g/dL (12.2-16.2); Lymphocytes # 1.5 K/mm3 (0.7-4.5); Lymphocytes % 20.6 % (10-50); Mean Corpuscular HGB Conc 30.3 g/dL (31.8-35.4); Mean Corpuscular Volume 93.8 fl (81-99); Mean Platelet Volume 8.7 fl (7.4-10.4); Monocytes # 0.7 K/mm3 (0.1-1.0); Monocytes % 8.9 % (1.7-9.3); Neutrophils % 66.4 % (37.0-80.0); Platelet Count 171 K/mm3 (142-424); Red Blood Count 3.34 M/mm3 (4.20-5.40); Red Cell Distribution Width 14.7 % (11.5-17.5); White Blood Count 7.5 K/mm3 (4.8-10.8)
[2019-04-03 07:14] LABS: Anion Gap 10.8 mEq/L (5-15); Calcium 8.1 mg/dL (8.5-10.1)
--- NOTE | 2019-04-03 07:59 | Progress Note ---
Subjective Date: 04/03/19 Time: 07:55 Principal diagnosis: A. fib with RVR, CHF Interval history: 88 yo WF in bed. Endorses chest pain, "like a paper across my chest" with chest wall tenderness with light palpation. Less awake than yesterday. Exam Vital signs and Labs for Last 24 Hours: Temp Pulse Resp BP Pulse Ox 98.0 F 99 H 17 108/69 L 98 04/03/19 04:00 04/03/19 06:59 04/03/19 04:00 04/03/19 04:00 04/03/19 04:00 Laboratory Results - last 24 hr 04/02/19 06:30: WBC 9.2, RBC 3.41 L, Hgb 9.4 L, Hct 31.9 L, MCV 93.3, MCH 27.5, MCHC 29.5 L, RDW 15.1, Plt Count 193, MPV 8.7, Neut % (Auto) 69.8, Lymph % (Auto) 19.1, [place] % (Auto) 8.8, Eos % (Auto) 1.9, Baso % (Auto) 0.3, Neut # (Auto) 6.4, Lymph # (Auto) 1.8, [place] # (Auto) 0.8, Eos # (Auto) 0.2, Baso # (Auto) 0.0 04/02/19 06:30: Sodium 147 H, Potassium 4.1, Chloride 114 H, Carbon Dioxide 24, Anion Gap 13.1, BUN 17, Creatinine 1.14 H, Estimated Creat Clear 31, Estimated GFR 45 L, Est GFR ( Amer) 55 L, Glucose 113 H, Calcium 8.4 L 04/03/19 06:44: WBC 7.5, RBC 3.34 L, Hgb 9.5 L, Hct 31.3 L, MCV 93.8, MCH 28.4, MCHC 30.3 L, RDW 14.7, Plt Count 171, MPV 8.7, Neut % (Auto) 66.4, Lymph % (Auto) 20.6, [place] % (Auto) 8.9, Eos % (Auto) 3.7, Baso % (Auto) 0.4, Neut # (Auto) 5.0, Lymph # (Auto) 1.5, [place] # (Auto) 0.7, Eos # (Auto) 0.3, Baso # (Auto) 0.0 04/03/19 06:44: Sodium 145, Potassium 4.8, Chloride 113 H, Carbon Dioxide 26, Anion Gap 10.8, BUN 21 H, Creatinine 1.16 H, Estimated Creat Clear 29, Estimated GFR 44 L, Est GFR ( Amer) 54 L, Glucose 109 H, Calcium 8.1 L I & O for Last 24 hours: Intake & Output 03/31/19 04/01/19 04/02/19 04/03/19 11:59 11:59 11:59 11:59 Intake Total 1080 / 1080 1820 / 1820 1312 / 1312 2850 / 2850 Output Total 700 / 700 1900 / 1900 2150 / 2150 Balance 1080 / 1080 1120 / 1120 -588 / -588 700 / 700 Weight 122 lb 5 oz 122 lb 5 oz 122 lb 5 oz 117 lb 6 oz - *Routine Respiratory Exam Present: CTA bilaterally. Absent: accessory muscle use, rales, rhonchi, wheezes - *Routine Cardiovascular Exam Present: tachycardia, irregularly irregular. Absent: murmur, gallop, rubs - *Routine Extremities Exam Absent: edema, calf tenderness Progress Note: A&P (1) Biventricular CHF (congestive heart failure) Status: Acute Current Visit: Yes (2) Cardiomyopathy Status: Acute Current Visit: Yes (3) Atrial fibrillation with rapid ventricular response Status: Acute Current Visit: Yes (4) Leukocytosis Status: Resolved Current Visit: Yes (5) Diverticulitis Status: Acute Current Visit: Yes (6) Compression fracture of T10 vertebra Status: Acute Current Visit: No (7) Hypothyroidism Status: Acute Current Visit: No (8) Severe sepsis Status: Acute Current Visit: Yes (9) Anemia Status: Acute Current Visit: Yes (10) History of hysterectomy Status: Acute Current Visit: Yes (11) Cervical spondylosis Status: Acute Current Visit: Yes (12) Renal insufficiency Status: Acute Current Visit: Yes (13) UTI (urinary tract infection) Status: Acute Current Visit: Yes (14) C. difficile enteritis Status: Acute Current Visit: Yes (15) Hypomagnesemia Status: Acute Current Visit: Yes (16) LVH (left ventricular hypertrophy) Status: Acute Current Visit: Yes (17) Pulmonary HTN Status: Acute Current Visit: Yes (18) Mitral regurgitation Status: Acute Current Visit: Yes (19) Chest wall tenderness Status: Acute Current Visit: Yes Assessment and Plan for All Diagnoses:: 1. A. fib with RVR, despite BB and digoxin. Will add short acting diltiazem 30 mg QID and titrate as needed. No anticoagulation due to recurrent falls. 2. CKD, stage 2, stable. 3. Anemia, stable. 4. Hypokalemia, resolved. 5. Chest wall tenderness 6. Mild Cardiomyopathy, likely related to A. fib and moderate to severe MR 7. Moderate to severe MR, continue lasix
--- NOTE | 2019-04-03 08:37 | Progress Note ---
Internal Medicine - PN: Subj *Date: 04/03/19 *Time: 08:33 Interval history: Patient continues to refuse to eat. Patient is drinking ensures and supplement shakes. Exam Vital signs and Labs for Last 24 Hours: Temp Pulse Resp BP Pulse Ox 98.0 F 99 H 17 108/69 L 98 04/03/19 04:00 04/03/19 06:59 04/03/19 04:00 04/03/19 04:00 04/03/19 04:00 Laboratory Results - last 24 hr 04/02/19 06:30: WBC 9.2, RBC 3.41 L, Hgb 9.4 L, Hct 31.9 L, MCV 93.3, MCH 27.5, MCHC 29.5 L, RDW 15.1, Plt Count 193, MPV 8.7, Neut % (Auto) 69.8, Lymph % (Auto) 19.1, [place] % (Auto) 8.8, Eos % (Auto) 1.9, Baso % (Auto) 0.3, Neut # (Auto) 6.4, Lymph # (Auto) 1.8, [place] # (Auto) 0.8, Eos # (Auto) 0.2, Baso # (Auto) 0.0 04/03/19 06:44: WBC 7.5, RBC 3.34 L, Hgb 9.5 L, Hct 31.3 L, MCV 93.8, MCH 28.4, MCHC 30.3 L, RDW 14.7, Plt Count 171, MPV 8.7, Neut % (Auto) 66.4, Lymph % (Auto) 20.6, [place] % (Auto) 8.9, Eos % (Auto) 3.7, Baso % (Auto) 0.4, Neut # (Auto) 5.0, Lymph # (Auto) 1.5, [place] # (Auto) 0.7, Eos # (Auto) 0.3, Baso # (Auto) 0.0 04/03/19 06:44: Sodium 145, Potassium 4.8, Chloride 113 H, Carbon Dioxide 26, Anion Gap 10.8, BUN 21 H, Creatinine 1.16 H, Estimated Creat Clear 29, Estimated GFR 44 L, Est GFR ( Amer) 54 L, Glucose 109 H, Calcium 8.1 L I & O for Last 24 hours: Intake & Output 03/31/19 04/01/19 04/02/19 04/03/19 11:59 11:59 11:59 11:59 Intake Total 1080 / 1080 1820 / 1820 1312 / 1312 2850 / 2850 Output Total 700 / 700 1900 / 1900 2150 / 2150 Balance 1080 / 1080 1120 / 1120 -588 / -588 700 / 700 Weight 122 lb 5 oz 122 lb 5 oz 122 lb 5 oz 117 lb 6 oz - Constitutional no acute distress, thin, chronically ill appearing - *Routine HEENT Exam Head: Present: normocephalic Eye: Present: PERRL ENT: Present: mucous membranes moist - *Routine Neck Exam Present: supple. Absent: lymphadenopathy - *Routine Respiratory Exam Present: CTA bilaterally, diminished air movement - *Routine Cardiovascular Exam Present: tachycardia, irregular rhythm - *Routine Abdominal Exam Present: soft, normoactive bowel sounds. Absent: tenderness - *Routine Extremities Exam Present: full ROM, pulses intact, normal capillary refill. Absent: cyanosis, clubbing, edema - *Routine Skin Exam Present: warm. Absent: rash Comments: excoriation to [place]leen-area - *Routine Neurological Exam Present: alert Assessment and Plan (1) Biventricular CHF (congestive heart failure) Current visit: Yes Status: Acute Category: Medical Code(s): I50.82 - Biventricular heart failure (2) Cardiomyopathy Current visit: Yes Status: Acute Category: Medical Code(s): I42.9 - Cardiomyopathy, unspecified (3) Atrial fibrillation with rapid ventricular response Current visit: Yes Status: Acute Category: Medical Code(s): I48.91 - Unspecified atrial fibrillation (4) Leukocytosis Current visit: Yes Status: Resolved Category: Medical Code(s): D72.829 - Elevated white blood cell count, unspecified (5) Diverticulitis Current visit: Yes Status: Acute Category: Medical Code(s): K57.92 - Diverticulitis of intestine, part unspecified, without perforation or abscess without bleeding (6) Compression fracture of T10 vertebra Current visit: No Status: Acute Qualifiers: Encounter type: initial encounter Qualified Code(s): S22.070A - Wedge compression fracture of T9-T10 vertebra, initial encounter for closed fracture Category: Medical Code(s): S22.070A - Wedge compression fracture of T9-T10 vertebra, initial encounter for closed fracture (7) Hypothyroidism Current visit: No Status: Acute Qualifiers: Hypothyroidism type: acquired Qualified Code(s): E03.9 - Hypothyroidism, unspecified Category: Medical Code(s): E03.9 - Hypothyroidism, unspecified (8) Severe sepsis Current visit: Yes Status: Acute Category: Medical Code(s): A41.9 - Sepsis, unspecified organism; R65.20 - Severe sepsis without septic shock (9) Anemia Current visit: Yes Status: Acute Qualifiers: Anemia type: unspecified type Qualified Code(s): D64.9 - Anemia, unspecified Category: Medical Code(s): D64.9 - Anemia, unspecified (10) History of hysterectomy Current visit: Yes Status: Acute Category: Medical Code(s): Z90.710 - Acquired absence of both cervix and uterus (11) Cervical spondylosis Current visit: Yes Status: Acute Category: Medical Code(s): M47.812 - Spondylosis without myelopathy or radiculopathy, cervical region (12) Renal insufficiency Current visit: Yes Status: Acute Category: Medical Code(s): N28.9 - Disorder of kidney and ureter, unspecified (13) UTI (urinary tract infection) Current visit: Yes Status: Acute Qualifiers: Urinary tract infection type: site unspecified Hematuria presence: without hematuria Qualified Code(s): N39.0 - Urinary tract infection, site not specified Category: Medical Code(s): N39.0 - Urinary tract infection, site not specified (14) C. difficile enteritis Current visit: Yes Status: Acute Category: Medical Code(s): A04.72 - Enterocolitis due to Clostridium difficile, not specified as recurrent (15) Hypomagnesemia Current visit: Yes Status: Acute Category: Medical Code(s): E83.42 - Hypomagnesemia (16) LVH (left ventricular hypertrophy) Current visit: Yes Status: Acute Category: Medical Code(s): I51.7 - Cardiomegaly (17) Pulmonary HTN Current visit: Yes Status: Acute Category: Medical Code(s): I27.20 - Pulmonary hypertension, unspecified (18) Mitral regurgitation Current visit: Yes Status: Acute Qualifiers: Cardiac valve disease etiology: etiology unspecified Qualified Code(s): I34.0 - Nonrheumatic mitral (valve) insufficiency Category: Medical Code(s): I34.0 - Nonrheumatic mitral (valve) insufficiency (19) Chest wall tenderness Current visit: Yes Status: Acute Category: Medical Code(s): R07.89 - Other chest pain - Assessment and plan all Dx Assessment and Plan for all problems:: Rounded with Dr. Valenzuela all orders per Nicolas Shelley catheter to stay and due to excoriation or carleen area Cardiology to adjust medications Encourage patient to eat and drink Asked staff to feed patient or offer assistance 2 more days of IV antibiotics
--- NOTE | 2019-04-03 09:45 | Progress Note ---
Subjective Patient reports: feels better (still with limited PO intake) Exam Vital signs and Labs for Last 24 Hours: Temp Pulse Resp BP Pulse Ox 98.0 F 99 H 17 108/69 L 98 04/03/19 04:00 04/03/19 09:05 04/03/19 04:00 04/03/19 04:00 04/03/19 04:00 Laboratory Results - last 24 hr 04/03/19 06:44: WBC 7.5, RBC 3.34 L, Hgb 9.5 L, Hct 31.3 L, MCV 93.8, MCH 28.4, MCHC 30.3 L, RDW 14.7, Plt Count 171, MPV 8.7, Neut % (Auto) 66.4, Lymph % (Auto) 20.6, [place] % (Auto) 8.9, Eos % (Auto) 3.7, Baso % (Auto) 0.4, Neut # (Auto) 5.0, Lymph # (Auto) 1.5, [place] # (Auto) 0.7, Eos # (Auto) 0.3, Baso # (Auto) 0.0 04/03/19 06:44: Sodium 145, Potassium 4.8, Chloride 113 H, Carbon Dioxide 26, Anion Gap 10.8, BUN 21 H, Creatinine 1.16 H, Estimated Creat Clear 29, Estimated GFR 44 L, Est GFR ( Amer) 54 L, Glucose 109 H, Calcium 8.1 L I & O for Last 24 hours: Intake & Output 03/31/19 04/01/19 04/02/19 04/03/19 11:59 11:59 11:59 11:59 Intake Total 1080 / 1080 1820 / 1820 1312 / 1312 2850 / 2850 Output Total 700 / 700 1900 / 1900 2150 / 2150 Balance 1080 / 1080 1120 / 1120 -588 / -588 700 / 700 Weight 122 lb 5 oz 122 lb 5 oz 122 lb 5 oz 117 lb 6 oz - Constitutional no acute distress - *Routine Abdominal Exam Present: soft Comments: less TTP Progress Note: A&P (1) Biventricular CHF (congestive heart failure) Status: Acute Current Visit: Yes (2) Cardiomyopathy Status: Acute Current Visit: Yes (3) Atrial fibrillation with rapid ventricular response Status: Acute Current Visit: Yes (4) Leukocytosis Status: Resolved Current Visit: Yes (5) Diverticulitis Status: Acute Assessment and plan: improving on current therapy to complete course of abx as per PCP Current Visit: Yes (6) Compression fracture of T10 vertebra Status: Acute Current Visit: No (7) Hypothyroidism Status: Acute Current Visit: No (8) Severe sepsis Status: Acute Current Visit: Yes (9) Anemia Status: Acute Current Visit: Yes (10) History of hysterectomy Status: Acute Current Visit: Yes (11) Cervical spondylosis Status: Acute Current Visit: Yes (12) Renal insufficiency Status: Acute Current Visit: Yes (13) UTI (urinary tract infection) Status: Acute Current Visit: Yes (14) C. difficile enteritis Status: Acute Current Visit: Yes (15) Hypomagnesemia Status: Acute Current Visit: Yes (16) LVH (left ventricular hypertrophy) Status: Acute Current Visit: Yes (17) Pulmonary HTN Status: Acute Current Visit: Yes (18) Mitral regurgitation Status: Acute Current Visit: Yes (19) Chest wall tenderness Status: Acute Current Visit: Yes
[2019-04-04 07:14] LABS: Basophils % 0.4 % (0.1-2.0); Eosinophils # 0.4 K/mm3 (0.0-0.4); Eosinophils % 4.9 % (0.1-12.0); Hematocrit 29.7 % (37.0-47.0); Hemoglobin 8.8 g/dL (12.2-16.2); Lymphocytes # 1.9 K/mm3 (0.7-4.5); Lymphocytes % 24.2 % (10-50); Mean Corpuscular HGB Conc 29.8 g/dL (31.8-35.4); Mean Corpuscular Volume 94.9 fl (81-99); Mean Platelet Volume 9.1 fl (7.4-10.4); Monocytes # 0.6 K/mm3 (0.1-1.0); Monocytes % 8.1 % (1.7-9.3); Neutrophils # 4.8 K/mm3 (1.8-7.8); Neutrophils % 62.3 % (37.0-80.0); Platelet Count 198 K/mm3 (142-424); Red Blood Count 3.12 M/mm3 (4.20-5.40); Red Cell Distribution Width 15.7 % (11.5-17.5); White Blood Count 7.7 K/mm3 (4.8-10.8)
[2019-04-04 07:22] LABS: Anion Gap 10.9 mEq/L (5-15); Calcium 8.3 mg/dL (8.5-10.1)
--- NOTE | 2019-04-04 08:41 | Progress Note ---
Internal Medicine - PN: Subj *Date: 04/05/19 *Time: 08:28 Interval history: looks better this am Exam Vital signs and Labs for Last 24 Hours: Temp Pulse Resp BP Pulse Ox 98.8 F 81 20 116/52 L 99 04/04/19 04:00 04/04/19 06:04 04/04/19 04:00 04/04/19 04:00 04/04/19 04:00 Laboratory Results - last 24 hr 04/04/19 06:45: Sodium 142, Potassium 4.9, Chloride 111 H, Carbon Dioxide 25, Anion Gap 10.9, BUN 21 H, Creatinine 1.22 H, Estimated Creat Clear 28, Estimated GFR 42 L, Est GFR ( Amer) 51 L, Glucose 119 H, Calcium 8.3 L 04/04/19 06:45: WBC 7.7, RBC 3.12 L, Hgb 8.8 L, Hct 29.7 L, MCV 94.9, MCH 28.3, MCHC 29.8 L, RDW 15.7, Plt Count 198, MPV 9.1, Neut % (Auto) 62.3, Lymph % (Auto) 24.2, [place] % (Auto) 8.1, Eos % (Auto) 4.9, Baso % (Auto) 0.4, Neut # (Auto) 4.8, Lymph # (Auto) 1.9, [place] # (Auto) 0.6, Eos # (Auto) 0.4, Baso # (Auto) 0.0 I & O for Last 24 hours: Intake & Output 04/01/19 04/02/19 04/03/19 04/04/19 11:59 11:59 11:59 11:59 Intake Total 1820 / 1820 1312 / 1312 3070 / 3070 620 / 620 Output Total 700 / 700 1900 / 1900 2150 / 2150 700 / 700 Balance 1120 / 1120 -588 / -588 920 / 920 -80 / -80 Weight 122 lb 5 oz 122 lb 5 oz 117 lb 6 oz 120 lb 2 oz - Constitutional no acute distress - *Routine HEENT Exam Head: Present: normocephalic Eye: Present: EOMI, PERRL ENT: Present: mucous membranes dry - *Routine Neck Exam Present: supple - *Routine Respiratory Exam Present: decreased breath sounds - *Routine Cardiovascular Exam Present: RRR, murmur - *Routine Abdominal Exam Present: soft - *Routine Extremities Exam Present: full ROM - *Routine Skin Exam Present: intact - *Routine Neurological Exam Present: alert, CN II-XII intact - Routine Psychiatric Exam Present: normal affect Assessment and Plan (1) Biventricular CHF (congestive heart failure) Current visit: Yes Status: Acute Category: Medical Code(s): I50.82 - Biventricular heart failure (2) Cardiomyopathy Current visit: Yes Status: Acute Category: Medical Code(s): I42.9 - Cardiomyopathy, unspecified (3) Atrial fibrillation with rapid ventricular response Current visit: Yes Status: Acute Category: Medical Code(s): I48.91 - Unspecified atrial fibrillation (4) Leukocytosis Current visit: Yes Status: Resolved Category: Medical Code(s): D72.829 - Elevated white blood cell count, unspecified (5) Diverticulitis Current visit: Yes Status: Acute Category: Medical Code(s): K57.92 - Diverticulitis of intestine, part unspecified, without perforation or abscess without bleeding (6) Compression fracture of T10 vertebra Current visit: No Status: Acute Qualifiers: Encounter type: initial encounter Qualified Code(s): S22.070A - Wedge compression fracture of T9-T10 vertebra, initial encounter for closed fracture Category: Medical Code(s): S22.070A - Wedge compression fracture of T9-T10 vertebra, initial encounter for closed fracture (7) Hypothyroidism Current visit: No Status: Acute Qualifiers: Hypothyroidism type: acquired Qualified Code(s): E03.9 - Hypothyroidism, unspecified Category: Medical Code(s): E03.9 - Hypothyroidism, unspecified (8) Severe sepsis Current visit: Yes Status: Acute Category: Medical Code(s): A41.9 - Sepsis, unspecified organism; R65.20 - Severe sepsis without septic shock (9) Anemia Current visit: Yes Status: Acute Qualifiers: Anemia type: unspecified type Qualified Code(s): D64.9 - Anemia, unspecified Category: Medical Code(s): D64.9 - Anemia, unspecified (10) History of hysterectomy Current visit: Yes Status: Acute Category: Medical Code(s): Z90.710 - Acquired absence of both cervix and uterus (11) Cervical spondylosis Current visit: Yes Status: Acute Category: Medical Code(s): M47.812 - Spondylosis without myelopathy or radiculopathy, cervical region (12) Renal insufficiency Current visit: Yes Status: Acute Category: Medical Code(s): N28.9 - Disorder of kidney and ureter, unspecified (13) UTI (urinary tract infection) Current visit: Yes Status: Acute Qualifiers: Urinary tract infection type: site unspecified Hematuria presence: without hematuria Qualified Code(s): N39.0 - Urinary tract infection, site not specified Category: Medical Code(s): N39.0 - Urinary tract infection, site not specified (14) C. difficile enteritis Current visit: Yes Status: Acute Category: Medical Code(s): A04.72 - Enterocolitis due to Clostridium difficile, not specified as recurrent (15) Hypomagnesemia Current visit: Yes Status: Acute Category: Medical Code(s): E83.42 - Hypomagnesemia (16) LVH (left ventricular hypertrophy) Current visit: Yes Status: Acute Category: Medical Code(s): I51.7 - Cardiomegaly (17) Pulmonary HTN Current visit: Yes Status: Acute Category: Medical Code(s): I27.20 - Pulmonary hypertension, unspecified (18) Mitral regurgitation Current visit: Yes Status: Acute Qualifiers: Cardiac valve disease etiology: etiology unspecified Qualified Code(s): I34.0 - Nonrheumatic mitral (valve) insufficiency Category: Medical Code(s): I34.0 - Nonrheumatic mitral (valve) insufficiency (19) Chest wall tenderness Current visit: Yes Status: Acute Category: Medical Code(s): R07.89 - Other chest pain
--- NOTE | 2019-04-04 13:22 | Progress Note ---
Internal Medicine - PN: Subj *Date: 04/04/19 *Time: 13:22 Exam Vital signs and Labs for Last 24 Hours: Temp Pulse Resp BP Pulse Ox 98.1 F 85 18 126/72 94 L 04/04/19 12:00 04/04/19 12:00 04/04/19 12:00 04/04/19 12:00 04/04/19 12:00 Laboratory Results - last 24 hr 04/04/19 06:45: Sodium 142, Potassium 4.9, Chloride 111 H, Carbon Dioxide 25, Anion Gap 10.9, BUN 21 H, Creatinine 1.22 H, Estimated Creat Clear 28, Estimated GFR 42 L, Est GFR ( Amer) 51 L, Glucose 119 H, Calcium 8.3 L 04/04/19 06:45: WBC 7.7, RBC 3.12 L, Hgb 8.8 L, Hct 29.7 L, MCV 94.9, MCH 28.3, MCHC 29.8 L, RDW 15.7, Plt Count 198, MPV 9.1, Neut % (Auto) 62.3, Lymph % (Auto) 24.2, [place] % (Auto) 8.1, Eos % (Auto) 4.9, Baso % (Auto) 0.4, Neut # (Auto) 4.8, Lymph # (Auto) 1.9, [place] # (Auto) 0.6, Eos # (Auto) 0.4, Baso # (Auto) 0.0 I & O for Last 24 hours: Intake & Output 04/01/19 04/02/19 04/03/19 04/04/19 23:59 23:59 23:59 23:59 Intake Total 790 / 1122 3392 / 3392 790 / 790 660 / 660 Output Total 3800 / 3800 750 / 950 320 / 320 Balance 790 / 1122 -408 / -408 40 / -160 340 / 340 Weight 55.48 kg 55.48 kg 53.24 kg 54.488 kg Assessment and Plan (1) Biventricular CHF (congestive heart failure) Current visit: Yes Status: Acute Category: Medical Code(s): I50.82 - Biventricular heart failure (2) Cardiomyopathy Current visit: Yes Status: Acute Category: Medical Code(s): I42.9 - Cardiomyopathy, unspecified (3) Atrial fibrillation with rapid ventricular response Current visit: Yes Status: Acute Category: Medical Code(s): I48.91 - Unspecified atrial fibrillation (4) Leukocytosis Current visit: Yes Status: Resolved Category: Medical Code(s): D72.829 - Elevated white blood cell count, unspecified (5) Diverticulitis Current visit: Yes Status: Acute Category: Medical Code(s): K57.92 - Diverticulitis of intestine, part unspecified, without perforation or abscess without bleeding (6) Compression fracture of T10 vertebra Current visit: No Status: Acute Qualifiers: Encounter type: initial encounter Qualified Code(s): S22.070A - Wedge compression fracture of T9-T10 vertebra, initial encounter for closed fracture Category: Medical Code(s): S22.070A - Wedge compression fracture of T9-T10 vertebra, initial encounter for closed fracture (7) Hypothyroidism Current visit: No Status: Acute Qualifiers: Hypothyroidism type: acquired Qualified Code(s): E03.9 - Hypothyroidism, unspecified Category: Medical Code(s): E03.9 - Hypothyroidism, unspecified (8) Severe sepsis Current visit: Yes Status: Acute Category: Medical Code(s): A41.9 - Sepsis, unspecified organism; R65.20 - Severe sepsis without septic shock (9) Anemia Current visit: Yes Status: Acute Qualifiers: Anemia type: unspecified type Qualified Code(s): D64.9 - Anemia, unspecified Category: Medical Code(s): D64.9 - Anemia, unspecified (10) History of hysterectomy Current visit: Yes Status: Acute Category: Medical Code(s): Z90.710 - Acquired absence of both cervix and uterus (11) Cervical spondylosis Current visit: Yes Status: Acute Category: Medical Code(s): M47.812 - Spondylosis without myelopathy or radiculopathy, cervical region (12) Renal insufficiency Current visit: Yes Status: Acute Category: Medical Code(s): N28.9 - Disorder of kidney and ureter, unspecified (13) UTI (urinary tract infection) Current visit: Yes Status: Acute Qualifiers: Urinary tract infection type: site unspecified Hematuria presence: without hematuria Qualified Code(s): N39.0 - Urinary tract infection, site not specified Category: Medical Code(s): N39.0 - Urinary tract infection, site not specified (14) C. difficile enteritis Current visit: Yes Status: Acute Category: Medical Code(s): A04.72 - Enterocolitis due to Clostridium difficile, not specified as recurrent (15) Hypomagnesemia Current visit: Yes Status: Acute Category: Medical Code(s): E83.42 - Hypomagnesemia (16) LVH (left ventricular hypertrophy) Current visit: Yes Status: Acute Category: Medical Code(s): I51.7 - Cardiomegaly (17) Pulmonary HTN Current visit: Yes Status: Acute Category: Medical Code(s): I27.20 - Pulmonary hypertension, unspecified (18) Mitral regurgitation Current visit: Yes Status: Acute Qualifiers: Cardiac valve disease etiology: etiology unspecified Qualified Code(s): I34.0 - Nonrheumatic mitral (valve) insufficiency Category: Medical Code(s): I34.0 - Nonrheumatic mitral (valve) insufficiency (19) Chest wall tenderness Current visit: Yes Status: Acute Category: Medical Code(s): R07.89 - Other chest pain The patient's infection will respond to the chosen ABx?: Yes Is the patient receiving the right drug, dose, and route?: Yes Could a more targeted ABx be ordered?: No (C DIFF)
[2019-04-05 07:40] LABS: Basophils % 0.5 % (0.1-2.0); Eosinophils # 0.4 K/mm3 (0.0-0.4); Eosinophils % 5.2 % (0.1-12.0); Hematocrit 31.6 % (37.0-47.0); Hemoglobin 9.3 g/dL (12.2-16.2); Lymphocytes # 1.3 K/mm3 (0.7-4.5); Lymphocytes % 18.4 % (10-50); Mean Corpuscular HGB Conc 29.5 g/dL (31.8-35.4); Mean Corpuscular Volume 93.6 fl (81-99); Mean Platelet Volume 8.8 fl (7.4-10.4); Monocytes # 0.5 K/mm3 (0.1-1.0); Monocytes % 7.4 % (1.7-9.3); Neutrophils # 4.9 K/mm3 (1.8-7.8); Neutrophils % 68.5 % (37.0-80.0); Platelet Count 239 K/mm3 (142-424); Red Blood Count 3.38 M/mm3 (4.20-5.40); Red Cell Distribution Width 15.8 % (11.5-17.5); White Blood Count 7.2 K/mm3 (4.8-10.8)
--- NOTE | 2019-04-05 08:59 | Progress Note ---
Internal Medicine - PN: Subj *Date: 04/05/19 *Time: 08:56 Interval history: pt with more lethargic this am - discussed with phar - still loose stool Exam Vital signs and Labs for Last 24 Hours: Temp Pulse Resp BP Pulse Ox 98.3 F 88 18 120/46 L 96 04/05/19 04:00 04/05/19 06:56 04/05/19 04:00 04/05/19 04:00 04/05/19 04:00 Laboratory Results - last 24 hr 04/05/19 06:56: WBC 7.2, RBC 3.38 L, Hgb 9.3 L, Hct 31.6 L, MCV 93.6, MCH 27.6, MCHC 29.5 L, RDW 15.8, Plt Count 239, MPV 8.8, Neut % (Auto) 68.5, Lymph % (Auto) 18.4, [place] % (Auto) 7.4, Eos % (Auto) 5.2, Baso % (Auto) 0.5, Neut # (Auto) 4.9, Lymph # (Auto) 1.3, [place] # (Auto) 0.5, Eos # (Auto) 0.4, Baso # (Auto) 0.0 I & O for Last 24 hours: Intake & Output 04/02/19 04/03/19 04/04/19 04/05/19 11:59 11:59 11:59 11:59 Intake Total 1312 / 1312 3070 / 3070 1080 / 1080 510 / 510 Output Total 1900 / 1900 2150 / 2150 820 / 820 900 / 900 Balance -588 / -588 920 / 920 260 / 260 -390 / -390 Weight 122 lb 5 oz 117 lb 6 oz 120 lb 2 oz 123 lb 3 oz - Constitutional no acute distress - *Routine HEENT Exam Head: Present: normocephalic Eye: Present: EOMI, PERRL ENT: Present: mucous membranes dry - *Routine Neck Exam Present: supple - *Routine Respiratory Exam Present: decreased breath sounds - *Routine Cardiovascular Exam Present: RRR - *Routine Abdominal Exam Present: soft - *Routine Extremities Exam Absent: edema - *Routine Skin Exam Present: intact - *Routine Neurological Exam Present: alert, CN II-XII intact - Routine Psychiatric Exam Present: normal affect Assessment and Plan (1) Biventricular CHF (congestive heart failure) Current visit: Yes Status: Acute Category: Medical Code(s): I50.82 - Biventricular heart failure (2) Cardiomyopathy Current visit: Yes Status: Acute Category: Medical Code(s): I42.9 - Cardiomyopathy, unspecified (3) Atrial fibrillation with rapid ventricular response Current visit: Yes Status: Acute Category: Medical Code(s): I48.91 - Unsp ecified atrial fibrillation (4) Leukocytosis Current visit: Yes Status: Resolved Category: Medical Code(s): D72.829 - Elevated white blood cell count, unspecified (5) Diverticulitis Current visit: Yes Status: Acute Category: Medical Code(s): K57.92 - Diverticulitis of intestine, part unspecified, without perforation or abscess without bleeding (6) Compression fracture of T10 vertebra Current visit: No Status: Acute Qualifiers: Encounter type: initial encounter Qualified Code(s): S22.070A - Wedge compression fracture of T9-T10 vertebra, initial encounter for closed fracture Category: Medical Code(s): S22.070A - Wedge compression fracture of T9-T10 vertebra, initial encounter for closed fracture (7) Hypothyroidism Current visit: No Status: Acute Qualifiers: Hypothyroidism type: acquired Qualified Code(s): E03.9 - Hypothyroidism, unspecified Category: Medical Code(s): E03.9 - Hypothyroidism, unspecified (8) Severe sepsis Current visit: Yes Status: Acute Category: Medical Code(s): A41.9 - Sepsis, unspecified organism; R65.20 - Severe sepsis without septic shock (9) Anemia Current visit: Yes Status: Acute Qualifiers: Anemia type: unspecified type Qualified Code(s): D64.9 - Anemia, unspecified Category: Medical Code(s): D64.9 - Anemia, unspecified (10) History of hysterectomy Current visit: Yes Status: Acute Category: Medical Code(s): Z90.710 - Acquired absence of both cervix and uterus (11) Cervical spondylosis Current visit: Yes Status: Acute Category: Medical Code(s): M47.812 - Spondylosis without myelopathy or radiculopathy, cervical region (12) Renal insufficiency Current visit: Yes Status: Acute Category: Medical Code(s): N28.9 - Disorder of kidney and ureter, unspecified (13) UTI (urinary tract infection) Current visit: Yes Status: Acute Qualifiers: Urinary tract infection type: site unspecified Hematuria presence: without hematuria Qualified Code(s): N39.0 - Urinary tract infection, site not specified Category: Medical Code(s): N39.0 - Urinary tract infection, site not specified (14) C. difficile enteritis Current visit: Yes Status: Acute Category: Medical Code(s): A04.72 - Enterocolitis due to Clostridium difficile, not specified as recurrent (15) Hypomagnesemia Current visit: Yes Status: Acute Category: Medical Code(s): E83.42 - Hypomagnesemia (16) LVH (left ventricular hypertrophy) Current visit: Yes Status: Acute Category: Medical Code(s): I51.7 - Cardiomegaly (17) Pulmonary HTN Current visit: Yes Status: Acute Category: Medical Code(s): I27.20 - Pulmonary hypertension, unspecified (18) Mitral regurgitation Current visit: Yes Status: Acute Qualifiers: Cardiac valve disease etiology: etiology unspecified Qualified Code(s): I34.0 - Nonrheumatic mitral (valve) insufficiency Category: Medical Code(s): I34.0 - Nonrheumatic mitral (valve) insufficiency (19) Chest wall tenderness Current visit: Yes Status: Acute Category: Medical Code(s): R07.89 - Other chest pain
[2019-04-05 09:07] LABS: Anion Gap 10.3 mEq/L (5-15); Calcium 8.4 mg/dL (8.5-10.1)
[2019-04-06 06:57] LABS: Basophils % 0.5 % (0.1-2.0); Eosinophils # 0.4 K/mm3 (0.0-0.4); Eosinophils % 4.7 % (0.1-12.0); Hematocrit 31.9 % (37.0-47.0); Hemoglobin 9.3 g/dL (12.2-16.2); Lymphocytes # 1.4 K/mm3 (0.7-4.5); Lymphocytes % 18.3 % (10-50); Mean Corpuscular HGB Conc 29.2 g/dL (31.8-35.4); Mean Corpuscular Volume 95.4 fl (81-99); Mean Platelet Volume 8.8 fl (7.4-10.4); Monocytes # 0.5 K/mm3 (0.1-1.0); Monocytes % 6.9 % (1.7-9.3); Neutrophils # 5.3 K/mm3 (1.8-7.8); Neutrophils % 69.6 % (37.0-80.0); Platelet Count 255 K/mm3 (142-424); Red Blood Count 3.35 M/mm3 (4.20-5.40); Red Cell Distribution Width 16.1 % (11.5-17.5); White Blood Count 7.6 K/mm3 (4.8-10.8)
[2019-04-06 11:08] LABS: Anion Gap 12.2 mEq/L (5-15); Calcium 8.4 mg/dL (8.5-10.1)
--- NOTE | 2019-04-06 12:23 | Discharge Summary ---
General - General Admission date:: 03/26/19 Discharge date: 04/06/19 HPI HPI: this wf fell and was seen in the ed and on eval was noted to have diverticulitis on xray and elevated wbc -pt was admiitted for ivf and abx and surg eval Hospital Course Hospital Course: this pt who was living at skilled nursing became ill and was seen in the ed after a fall - she was found to have diverticulitis -joey the patient does have baseline dementia and her ability to fully understand her medical condition is seemingly limited, she did clearly state "no surgery" during discussion about diverticulitis. I believe she wishes to avoid surgery for any diagnosis and does not want intervention if her condition changes- This is an 88-year-old female who was evaluated last night in the emergency department after presenting with head, chest, and abdominal pain status post fall. No significant acute injuries were determined after her initial evaluation; however, she was found to have radiographic evidence of diverticulit is. Her white blood cell count was significantly elevated. She was placed on antibiotics and admitted for further evaluation and management. she has slowly improved with treatment and also had c diff enteritis - pt was on ivf flagyl and po vancomycin and has improved -she also had a fib with rvr and seen by card -History of A. fib per patient A. CHADS-VASc score is 6 but No anticoagulation due to recurrent falls 2. History of CHF per patient 3. History of multiple CVA's 4. 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 Periorbital ecchymosis after falling out of bed, 07/2018 6. Hypothyroidism, on replacement but still with elevated TSH, 07/2018 7. CKD stage 3 with Cr 1.7, GFR 35 (07/2018) 8. Anemia, 07/2018, Hgb 10.8 9. Sigmoid diverticulitis, 03/2019 10. HTN History of present illness: 88 yo WF admitted for abdominal pain with elevated WBC/sepsis. Workup revealed sigmoid diverticulitis. Improving on abx but now has developed A. fib with RVR. Denies any chest pain. Known history of A. fib but no anticoagulation due to recurrent falls. Some conversational SOA. Poor historian. EKG is a. fib with RVR (rate in the 130 bpm range). lopressor 5 mg now 2. Increase metoprolol 50 mg to TID for BP and HR control 3. Supplement potassium 4. Echo report pending but appears to show mild cardiomyopathy (possibly related to A. fib) 5. CKD stage 3/4 on admission now improved to stage 2. Consider adding CLARISA or ARB pending official echo results. 6. check BMP and mag in AM pt has did ok with occ inc episodes of a fib with rvr -ib with RVR, despite BB and digoxin. Will add short acting diltiazem 30 mg QID and titrate as needed. No anticoagulation due to recurrent falls. 2. CKD, stage 2, stable. 3. Anemia, stable. 4. Hypokalemia, resolved. 5. Chest wall tenderness 6. Mild Cardiomyopathy, likely related to A. fib and moderate to severe MR 7. Moderate to severe MR, continue lasix pt was seen by dietary who suggested reglan and has seen therapy - she is better but still completing c diff course and has better but still meager appetite - she will be best in ecf and continued on meds and probably better to be treated as op if possible - Objective Vital signs: Temp Pulse Resp BP Pulse Ox 98.1 F 74 20 125/64 96 04/06/19 08:00 04/06/19 11:56 04/06/19 08:00 04/06/19 08:00 04/06/19 08:00 no acute distress, chronically ill appearing - *Routine HEENT Exam Head: Present: normocephalic Eye: Present: EOMI, PERRL ENT: Present: mucous membranes dry - *Routine Neck Exam Present: supple. Absent: JVD - *Routine Respiratory Exam Present: decreased breath sounds - *Routine Cardiovascular Exam Present: murmur, irregular rhythm - *Routine Abdominal Exam Present: soft - *Routine Extremities Exam Absent: edema - *Routine Skin Exam Present: intact - *Routine Neurological Exam Present: alert, CN II-XII intact, moving all extremities - Routine Psychiatric Exam Present: cooperative. Absent: good insight, depressed Results Labs on day of discharge: Labs from last 24 hours 04/06/19 04/06/19 06:28 06:28 WBC 7.6 RBC 3.35 L Hgb 9.3 L Hct 31.9 L MCV 95.4 MCH 27.8 MCHC 29.2 L RDW 16.1 Plt Count 255 MPV 8.8 Neut % (Auto) 69.6 Lymph % (Auto) 18.3 [place] % (Auto) 6.9 Eos % (Auto) 4.7 Baso % (Auto) 0.5 Neut # (Auto) 5.3 Lymph # (Auto) 1.4 [place] # (Auto) 0.5 Eos # (Auto) 0.4 Baso # (Auto) 0.0 Sodium 145 Potassium 5.2 H Chloride 111 H Carbon Dioxide 27 Anion Gap 12.2 BUN 18 Creatinine 1.24 H Estimated Creat Clear 28 Estimated GFR 41 L Est GFR ( Amer) 50 L Glucose 93 Calcium 8.4 L DS: Diagnosis - Discharge Diagnosis (1) Biventricular CHF (congestive heart failure) Status: Acute (2) Cardiomyopathy Status: Acute (3) Atrial fibrillation with rapid ventricular response Status: Acute (4) Leukocytosis Status: Resolved (5) Diverticulitis Status: Acute (6) Compression fracture of T10 vertebra Status: Acute (7) Hypothyroidism Status: Acute (8) Severe sepsis Status: Acute (9) Anemia Status: Acute (10) History of hysterectomy Status: Acute (11) Cervical spondylosis Status: Acute (12) Renal insufficiency Status: Acute (13) UTI (urinary tract infection) Status: Acute (14) C. 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, DI for Diverticulosis - Follow up Plan Disposition: er [facility] Home Medications: Home Medications Medication Instructions Recorded Confirmed Type Atorvastatin Calcium [Atorvastatin 80 mg PO HS 07/18/18 03/27/19 History 80mg Tab] Cholecalciferol (Vitamin D3) 50,000 unit PO WEEKLY 07/18/18 03/27/19 History [Vitamin D3 50,000 unit Cap] Cyanocobalamin (Vitamin B-12) 1,000 mcg PO DAILY 07/18/18 03/27/19 History [Vitamin B-12] Levothyroxine Sodium 100 mcg PO DAILY 07/18/18 03/27/19 History [Levothyroxine 50mcg (0.05mg) Tab] Melatonin/Pyridoxine HCl (B6) 3 mg PO HS 07/18/18 03/27/19 History [Melatonin 3 mg Tablet] Metoprolol Tartrate 50 mg PO BID 07/18/18 03/27/19 History Omeprazole [Omeprazole 20mg 20 mg PO BID 07/18/18 03/27/19 History Capsule] Sertraline HCl [Zoloft 100mg 100 mg PO DAILY 07/18/18 03/27/19 History tablet] Acetaminophen 500 mg PO BIDP PRN 03/27/19 03/27/19 History Donepezil HCl [Aricept 5mg 5 mg PO HS 03/27/19 03/27/19 History Tablet] Nitroglycerin 0.4 mg SL Q5MINP PRN 03/27/19 03/27/19 History Tramadol HCl [Tramadol 50mg 50 mg PO BID 03/27/19 03/27/19 History Tab] Trazodone HCl 50 mg PO DAILY 03/27/19 03/27/19 History Bisoprolol Fumarate [Zebeta 5mg 10 mg PO BID 30 Days #60 tab 04/06/19 Rx tablet] Digoxin [Digoxin 0.125mg Tablet] 125 mcg PO DAILY #30 tab 04/06/19 Rx Furosemide [Lasix 20mg tablet] 20 mg PO DAILY #30 tab 04/06/19 Rx L. Acidophilus/Strept/LA P-Lorne 1 cap PO DAILY #30 cap 04/06/19 Rx [Tiffanie-Q Probiotic Capsule] Levothyroxine Sodium [Synthroid 100 mcg PO DAILY #30 tab 04/06/19 Rx 100mcg (0.1mg) tablet] Vancomycin HCl [Vancomycin 500mg 250 mg PO QID 7 Days #28 vial 04/06/19 Rx vial] dilTIAZem HCl [Cardizem CD 120mg 120 mg PO DAILY #30 cap.er.24h 04/06/19 Rx Cap] Prescriptions/Medication Reconciliation: New dilTIAZem HCl [Cardizem CD 120mg Cap] 120 mg PO DAILY #30 cap.er.24h Digoxin [Digoxin 0.125mg Tablet] 125 mcg PO DAILY #30 tab L. Acidophilus/Strept/LA P-Lorne [Tiffanie-Q Probiotic Capsule] 1 cap PO DAILY #30 cap Furosemide [Lasix 20mg tablet] 20 mg PO DAILY #30 tab Levothyroxine Sodium [Synthroid 100mcg (0.1mg) tablet] 100 mcg PO DAILY #30 tab Vancomycin HCl [Vancomycin 500mg vial] 250 mg PO QID 7 Days #28 vial Bisoprolol Fumarate [Zebeta 5mg tablet] 10 mg PO BID 30 Days #60 tab Continued Levothyroxine Sodium [Levothyroxine 50mcg (0.05mg) Tab] 100 mcg PO DAILY Omeprazole [Omeprazole 20mg Capsule] 20 mg PO BID Melatonin/Pyridoxine HCl (B6) [Melatonin 3 mg Tablet] 3 mg PO HS Atorvastatin Calcium [Atorvastatin 80mg Tab] 80 mg PO HS Donepezil HCl [Aricept 5mg Tablet] 5 mg PO HS Acetaminophen 500 mg PO BIDP PRN PRN Reason: PAIN Sertraline HCl [Zoloft 100mg tablet] 100 mg PO DAILY Discontinued Metoprolol Tartrate 50 mg PO BID Cyanocobalamin (Vitamin B-12) [Vitamin B-12] 1,000 mcg PO DAILY Cholecalciferol (Vitamin D3) [Vitamin D3 50,000 unit Cap] 50,000 unit PO WEEKLY Trazodone HCl 50 mg PO DAILY Tramadol HCl [Tramadol 50mg Tab] 50 mg PO BID Nitroglycerin 0.4 mg SL Q5MINP PRN PRN Reason: Angina - Problem Reconciliation Problems Reviewed?: Yes
--- NOTE | 2019-04-06 13:26 | Progress Note ---
Subjective Date: 04/06/19 Time: 13:22 Principal diagnosis: A. fib with RVR, CHF Interval history: 88 yo WF in chair in NAD. More alert. Denies chest pain. Telemetry shows A. fib with CVR. Exam Vital signs and Labs for Last 24 Hours: Temp Pulse Resp BP Pulse Ox 98.1 F 74 20 125/64 96 04/06/19 08:00 04/06/19 11:56 04/06/19 08:00 04/06/19 08:00 04/06/19 08:00 Laboratory Results - last 24 hr 04/06/19 06:28: WBC 7.6, RBC 3.35 L, Hgb 9.3 L, Hct 31.9 L, MCV 95.4, MCH 27.8, MCHC 29.2 L, RDW 16.1, Plt Count 255, MPV 8.8, Neut % (Auto) 69.6, Lymph % (Auto) 18.3, [place] % (Auto) 6.9, Eos % (Auto) 4.7, Baso % (Auto) 0.5, Neut # (Auto) 5.3, Lymph # (Auto) 1.4, [place] # (Auto) 0.5, Eos # (Auto) 0.4, Baso # (Auto) 0.0 04/06/19 06:28: Sodium 145, Potassium 5.2 H, Chloride 111 H, Carbon Dioxide 27, Anion Gap 12.2, BUN 18, Creatinine 1.24 H, Estimated Creat Clear 28, Estimated GFR 41 L, Est GFR ( Amer) 50 L, Glucose 93, Calcium 8.4 L I & O for Last 24 hours: Intake & Output 04/04/19 04/05/19 04/06/19 04/07/19 11:59 11:59 11:59 11:59 Intake Total 1080 / 1080 610 / 610 790 / 790 Output Total 820 / 820 900 / 900 400 / 400 Balance 260 / 260 -290 / -290 390 / 390 Weight 120 lb 2 oz 123 lb 3 oz 119 lb 2 oz - *Routine Respiratory Exam Present: CTA bilaterally. Absent: accessory muscle use, rales, rhonchi, wheezes - *Routine Cardiovascular Exam Present: RRR, irregularly irregular. Absent: murmur, gallop, rubs Progress Note: A&P (1) Biventricular CHF (congestive heart failure) Status: Acute Current Visit: Yes (2) Cardiomyopathy Status: Acute Current Visit: Yes (3) Atrial fibrillation with rapid ventricular response Status: Acute Current Visit: Yes (4) Leukocytosis Status: Resolved Current Visit: Yes (5) Diverticulitis Status: Acute Current Visit: Yes (6) Compression fracture of T10 vertebra Status: Acute Current Visit: No (7) Hypothyroidism Status: Acute Current Visit: No (8) Severe sepsis Status: Acute Current Visit: Yes (9) Anemia Status: Acute Current Visit: Yes (10) History of hysterectomy Status: Acute Current Visit: Yes (11) Cervical spondylosis Status: Acute Current Visit: Yes (12) Renal insufficiency Status: Acute Current Visit: Yes (13) UTI (urinary tract infection) Status: Acute Current Visit: Yes (14) C. difficile enteritis Status: Acute Current Visit: Yes (15) Hypomagnesemia Status: Acute Current Visit: Yes (16) LVH (left ventricular hypertrophy) Status: Acute Current Visit: Yes (17) Pulmonary HTN Status: Acute Current Visit: Yes (18) Mitral regurgitation Status: Acute Current Visit: Yes (19) Chest wall tenderness Status: Acute Current Visit: Yes (20) Hyperkalemia Status: Acute Current Visit: Yes Assessment and Plan for All Diagnoses:: 1. A. fib now with CVR on combo of digoxin 0.125 mg daily, bystolic 10 mg BID and diltiazem CD 120 mg daily. No anticoagulation due to recurrent falls. 2. Moderate to severe MR, continue daily lasix and follow renal status 3. HTN, controlled 4. Ok for discharge from Cardiology standpoint. 5. Follow up with PCP in 2 wks.
== END 2019-04-06 14:30 | DRG 391 ==
LOC: 2ND 15:45 → ER 15:45 → 2ND 21:15 → OBSVTOIN 21:15
PROVIDERS: ADMIT Internal Medicine Adolescent Medicine; ATTEND Emergency Medicine
CPT/HCPCS: 36415; 36569; 70450; 71010; 71045; 72125; 73502; 74176; 80048; 81001; 83605; 83735; 84484; 85007; 85025; 87040; 87086; 87507; 93005; 93306; 94640; 96365; 97116; 97162; 97166; 97530; 97535; 99284; C1751; J2543; J3370

== ENCOUNTER 2019-07-13 13:29 | Observation (INO) ==
--- NOTE | 2019-07-13 13:36 | Emergency Department Note ---
ED Disposition Clinical Impression: Chest pain Qualifiers: Chest pain type: unspecified Qualified Code(s): R07.9 - Chest pain, unspecified Disposition: Admitted As Inpatient Condition on Discharge: Fair - Critical Care Critical Care Time: No Attestation: On , the high probability of a clinically significant, sudden or life threatening deterioration of the following system(s) required my full and direct attention, intervention and personal management. The time I documented below is in addition to time spent performing reported procedures but includes the following listed in this critical care notation. Medical Decision Making - Medical Records Medical records reviewed: Yes: I reviewed the patient's medical records. - Tin Inquiry Pt receiving controlled substance: No Vital Signs: 07/13/19 13:39 07/13/19 14:30 Temperature 98.2 F Temperature Source Rectal Pulse Rate [Left Radial] 117 H 108 H Respiratory Rate 20 16 Blood Pressure [Right Arm] 144/79 H 149/73 H Blood Pressure Mean [Right Arm] 100 98 Blood Pressure Source [Right Arm] Automatic Cuff Automatic Cuff Blood Pressure Position [Right Arm] Sitting Sitting 02 Sat by Pulse Oximetry 99 97 Oxygen Delivery Method Room Air Room Air - Lab Data Lab Results 07/13/19 14:10: Sodium 144, Potassium 3.4 L, Chloride 108 H, Carbon Dioxide 27, Anion Gap 12.4, BUN 15, Creatinine 1.08 H, Estimated Creat Clear 28, Estimated GFR 48 L, Est GFR ( Amer) 58 L, Glucose 98, Calcium 7.9 L, Total Bilirubin 0.7, AST 25, ALT 16, Alkaline Phosphatase 105, Troponin I < 0.02, Total Protein 6.2 L, Albumin 3.0 L, Globulin 3.2, Albumin/Globulin Ratio 0.9 L 07/13/19 14:15: WBC 5.9, RBC 4.01 L, Hgb 11.3 L, Hct 38.6, MCV 96.4, MCH 28.3, MCHC 29.3 L, RDW 16.2, Plt Count 162, MPV 10.2, Neut % (Auto) 66.1, Lymph % (Auto) 21.5, [place] % (Auto) 9.0, Eos % (Auto) 3.0, Baso % (Auto) 0.4, Neut # (Auto) 3.9, Lymph # (Auto) 1.3, [place] # (Auto) 0.5, Eos # (Auto) 0.2, Baso # (Auto) 0.0 Result diagrams: 07/13/19 14:15 07/13/19 14:10 Orders (Tests/Meds): ED MEDICATIONS Discontinued Medications Generic Name Dose Route Start Last Admin Trade Name Kat PRN Reason Stop Dose Admin Aspirin 324 mg 07/13/19 13:32 07/13/19 13:54 Aspirin 81mg Chewable Tablet PO 07/13/19 13:33 324 mg ONCE ONE Administration ORDERS Category Date Time Status Troponin I Q3H Lab 07/13/19 16:45 Ordered Troponin I Q3H Lab 07/13/19 19:45 Ordered ECG Request by /Walker Stat Y 07/13/19 13:32 Ordered - Radiology Data #1 Image(s): Chest Image Reviewed: Yes I reviewed the patient's radiology results Preliminary Findings: Normal/NAD - ECG Data Tracing #1 I reviewed this ECG and interpreted as documented below: EKG shows atrial fibrillation with a rate of 116. No acute ST segment elevation or depression. No hyperacute T waves. Normal QRS and QTc per my read - MITCHELL Score for Non-Stemi Age of Patient: 80-89 years old Heart Rate: 110-149 bpm Systolic Blood Pressure: 140-159 mmHg Serum Creatinine: 0.80-1.19 mg/dl CHF [place] Class: I-No CHF Other Risk Factors: None Non-Stemi Risk Score: 146 Medical Decision Narrative: Patient here with left-sided chest pain, negative troponin and EKG that shows known atrial fibrillation, no signs of acute coronary syndrome at this time. Her MITCHELL score puts her in a high risk category, so she will be admitted for further observation and troponin trending. She already received 3 nitroglycerin prior to arrival, and continues to complain of some dull pain in the left chest, but is comfortable on multiple re-evaluations, asking for food and in no objective acute distress. Stick showed no signs of pneumonia, pneumothorax. She does not clinically appear significantly fluid overloaded. Chest x-ray does not show any signs of florid pulmonary edema. Chest Pain HPI - General Stated Complaint: chest pain Time Seen by Provider: 07/13/19 13:33 Mode of Arrival: EMS Source of Information: Patient, EMS, Medical Record Limitations: No Limitations - History of Present Illness HPI narrative: This is an 88-year-old female with a past medical history significant for hypertension, hyperlipidemia, atrial fibrillation who presents to the emergency department for left-sided chest pain that radiates down her left arm. Symptoms started this morning at rest. Pain is constant. She has not had any shortness of breath, vomiting, diaphoresis associated with the pain. No history of previous cardiac stents. Nothing makes the pain better or worse. Her history of atrial fibrillation is a new diagnosis within the last week. - Related Data Home Medications Medication Instructions Recorded Confirmed Atorvastatin Calcium [Atorvastatin 80 mg PO HS 07/18/18 07/13/19 80mg Tab] Melatonin/Pyridoxine HCl (B6) 3 mg PO HS 07/18/18 07/13/19 [Melatonin 3 mg Tablet] Omeprazole [Omeprazole 20mg 20 mg PO BID 07/18/18 07/13/19 Capsule] Sertraline HCl [Zoloft 100mg 100 mg PO DAILY 07/18/18 07/13/19 tablet] Acetaminophen 500 mg PO BIDP PRN 03/27/19 07/13/19 Donepezil HCl [Aricept 5mg 5 mg PO HS 03/27/19 07/13/19 Tablet] Furosemide [Lasix 20mg tablet] 20 mg PO DAILY 07/10/19 07/13/19 L. Acidophilus/Strept/LA P-Lorne 1 cap PO DAILY 07/10/19 07/13/19 [Tiffanie-Q Probiotic Capsule] Digoxin [Digoxin 0.125mg Tablet] 125 mcg PO DAILY 07/13/19 07/13/19 Potassium Chloride [K-Tab ER 20 20 meq PO DAILY 07/13/19 07/13/19 mEq] dilTIAZem HCl [Diltiazem 120mg 120 mg PO DAILY 07/13/19 07/13/19 12Hr ER Cap] Allergies Allergy/AdvReac Type Severity Reaction Status Date / Time buspirone [From BuSpar] Allergy Verified 01/12/19 12:14 Sulfa (Sulfonamide Allergy Verified 11/01/18 19:47 Antibiotics) [facility] History - Hepatitis A Screen Attestation statement:: This patient has been screened for Hepatitis A risk factors. I have reviewed the patient's past medical history: Yes Medical History: Reports:: Atrial Fibrillation, Coronary Artery Disease, Hyperlipidemia, Hypertension Denies:: Cancer, Diabetes Mellitus Type 1, Diabetes Mellitus Type 2, MRSA Other Medical History: Reports: Anemia, Arthritis, Hypothyroidism Laterality Cases: Bilateral: Other Amputation: No Fractures: No - Social History Smoking Status: Never smoker Alcohol Intake: never Occupational Status: disabled Housing: assisted living facility Household Members: other Family Hx:: Hyperlipidemia, Hypertension, Heart Attack ROS Obtained: Yes All systems reviewed & no additional complaints Physical Exam - General General appearance: alert, in no apparent distress - Head Head exam: atraumatic, normocephalic, normal inspection - Eye Eye exam: Present: normal appearance, PERRL, EOMI - ENT ENT exam: Present: normal exam, normal oropharynx, mucous membranes moist - Neck Neck exam: Present: normal inspection, full ROM, trachea midline. Absent: tenderness - Chest Chest inspection: Present: normal inspection, symmetric chest wall rise. Absent: tenderness - Respiratory Respiratory exam: Present: normal lung sounds bilaterally. Absent: respiratory distress - Cardiovascular Cardiovascular exam: Present: tachycardia, irregular rhythm. Absent: JVD - Abdominal Exam Abdominal exam: Present: soft. Absent: distention, tenderness, guarding - Extremities Exam Extremities exam: Absent: pedal edema - Neurological Exam Neurological exam: Present: alert, oriented X3 - Psychiatric Psychiatric exam: Present: normal affect, normal mood - Skin Skin exam: Present: warm, dry, intact, normal color
[2019-07-13 14:30] LABS: Alanine Aminotransferase 16 U/L (12-78); Albumin/Globulin Ratio 0.9 (1.1-1.8); Alkaline Phosphatase 105 U/L (46-116); Anion Gap 12.4 mEq/L (5-15); Aspartate Amino Transferase 25 U/L (15-37); Bilirubin,Total 0.7 mg/dL (0.2-1.0); Carbon Dioxide 27 mmol/L (21.0-32.0); Chloride 108 mmol/L (98-107); Globulin 3.2 gm/dl (1.3-3.2); Glucose 98 mg/dL (74-106); Sodium 144 mmol/L (136-145); Total Protein,Serum 6.2 gm/dL (6.4-8.2)
[2019-07-13 14:32] LABS: Basophils % 0.4 % (0.1-2.0); Eosinophils # 0.2 K/mm3 (0.0-0.4); Hematocrit 38.6 % (37.0-47.0); Hemoglobin 11.3 g/dL (12.2-16.2); Lymphocytes # 1.3 K/mm3 (0.7-4.5); Lymphocytes % 21.5 % (10-50); Mean Corpuscular HGB Conc 29.3 g/dL (31.8-35.4); Mean Corpuscular Volume 96.4 fl (81-99); Mean Platelet Volume 10.2 fl (7.4-10.4); Monocytes # 0.5 K/mm3 (0.1-1.0); Neutrophils # 3.9 K/mm3 (1.8-7.8); Neutrophils % 66.1 % (37.0-80.0); Platelet Count 162 K/mm3 (142-424); Red Blood Count 4.01 M/mm3 (4.20-5.40); Red Cell Distribution Width 16.2 % (11.5-17.5); White Blood Count 5.9 K/mm3 (4.8-10.8)
[2019-07-13 14:38] LABS: Blood Urea Nitrogen 15 mg/dL (7-18); Calcium 7.9 mg/dL (8.5-10.1)
--- NOTE | 2019-07-13 15:28 | Consult Report ---
History of Present Illness Consult date: 07/13/19 Requesting physician: Sukh Valenzuela Consult reason: chest pain Chief complaint: chest pain Additional Medical History:: 1. History of A. fib per patient A. PAF admission, 07/2018, converted to NSR. No anticoagulation due to falls ("raccoon eyes" with recent fall) B. A. Fib with RVR, 07/2019 2. History of CHF per patient 3. History of multiple CVA's 4. First degree AV block on EKG 5. Periorbital ecchymosis after falling out of bed, 07/2018 6. Hypothyroidism, on replacement but still with elevated TSH, 07/2018 7. CKD stage 3 with Cr 1.7, GFR 35 (07/2018) 8. Anemia 9. Cardiomyopathy A. Echo, 07/2019, 1. Biatrial enlargement, normal left ventricular size, reduced left ventricular systolic function, visually estimated ejection fraction of 30 to 35%, left ventricle is globally hypokinetic, diastolic parameters are inconclusive. 2. Enlarged right ventricle with normal contractility. 3. Moderate to severe mitral and moderate tricuspid regurgitation, calcu lated right ventricular systolic pressure is 58 mmHg which is moderately elevated. 4. No significant pericardial effusion noted 10. Moderate to severe mitral regurgitation by echocardiogram 03/2019 and 07/2019 History of present illness: 88-year-old white female was sent from [facility] for complaint of left-sided chest pain with radiation into the left arm. Patient is unable to elaborate on details regarding aggravating or alleviating symptoms other than stating it just hurts. Initial troponin is normal and EKG is atrial fibrillat ion with rates in the low 100s. She did receive 3 nitroglycerin in route with some improvement in symptoms but not resolution. Patient was in the ER recently for atrial fibrillation with a rapid ventricular response at which time echocardiogram revealed ejection fraction of 35% with moderate to severe mitral regurgitation. Medication changes were made including switching to bisoprolol, losartan, digoxin and Lasix. It is unclear if these changes have been instituted since her discharge from the ER on 07/10/2019. Patient does relate frequent falls and does have chest wall discomfort with palpation and with deep breathing. Patient will be admitted for further evaluation. [facility] History Medical History: Reports:: Atrial Fibrillation, Coronary Artery Disease, Hyperlipidemia, Hypertension Denies:: Cancer, Diabetes Mellitus Type 1, Diabetes Mellitus Type 2, MRSA *Have you ever received a pneumonia vaccine?: No *Have you received a flu vaccine this season?: No Other Medical History: Reports: Anemia, Arthritis, Hypothyroidism Laterality Cases: Bilateral: Other Amputation: No Fractures: No - *Social History Smoking Status: Never smoker Alcohol Intake: never *Occupational Status:: disabled Housing: assisted living facility Household Members: other *Travel in the last 8 weeks: None Family Hx:: Hyperlipidemia, Hypertension, Heart Attack Meds Home Medications Medication Instructions Recorded Confirmed Type Atorvastatin Calcium [Atorvastatin 80 mg PO HS 07/18/18 07/13/19 History 80mg Tab] Melatonin/Pyridoxine HCl (B6) 3 mg PO HS 07/18/18 07/13/19 History [Melatonin 3 mg Tablet] Omeprazole [Omeprazole 20mg 20 mg PO BID 07/18/18 07/13/19 History Capsule] Sertraline HCl [Zoloft 100mg 100 mg PO DAILY 07/18/18 07/13/19 History tablet] Acetaminophen 500 mg PO BIDP PRN 03/27/19 07/13/19 History Donepezil HCl [Aricept 5mg 5 mg PO HS 03/27/19 07/13/19 History Tablet] Furosemide [Lasix 20mg tablet] 20 mg PO DAILY 07/10/19 07/13/19 History L. Acidophilus/Strept/LA P-Lorne 1 cap PO DAILY 07/10/19 07/13/19 History [Tiffanie-Q Probiotic Capsule] Digoxin [Digoxin 0.125mg Tablet] 125 mcg PO DAILY 07/13/19 07/13/19 History Potassium Chloride [K-Tab ER 20 20 meq PO DAILY 07/13/19 07/13/19 History mEq] dilTIAZem HCl [Diltiazem 120mg 120 mg PO DAILY 07/13/19 07/13/19 History 12Hr ER Cap] Allergies Allergy/AdvReac Type Severity Reaction Status Date / Time buspirone [From BuSpar] Allergy Verified 01/12/19 12:14 Sulfa (Sulfonamide Allergy Verified 11/01/18 19:47 Antibiotics) Review of Systems - Review of Systems Review of systems:: pertinent systems reviewed and negative unless documented below - *Cardiovascular Reports chest pain, Reports shortness of breath - *Respiratory Reports shortness of breath - *Gastrointestinal Denies abdominal pain, Denies nausea, Denies vomiting - *Genitourinary Denies blood in urine - *Musculoskeletal Denies joint pain, Denies back pain - *Neurologic Denies fainting, Denies tingling Exam Vital signs and Labs for Last 24 Hours: Temp Pulse Resp BP Pulse Ox 98.2 F 108 H 16 149/73 H 97 07/13/19 13:39 07/13/19 14:30 07/13/19 14:30 07/13/19 14:30 07/13/19 14:30 Laboratory Results - last 24 hr 07/13/19 14:10: Sodium 144, Potassium 3.4 L, Chloride 108 H, Carbon Dioxide 27, Anion Gap 12.4, BUN 15, Creatinine 1.08 H, Estimated Creat Clear 28, Estimated GFR 48 L, Est GFR ( Amer) 58 L, Glucose 98, Calcium 7.9 L, Total Bilirubin 0.7, AST 25, ALT 16, Alkaline Phosphatase 105, Troponin I < 0.02, Total Protein 6.2 L, Albumin 3.0 L, Globulin 3.2, Albumin/Globulin Ratio 0.9 L 07/13/19 14:15: WBC 5.9, RBC 4.01 L, Hgb 11.3 L, Hct 38.6, MCV 96.4, MCH 28.3, MCHC 29.3 L, RDW 16.2, Plt Count 162, MPV 10.2, Neut % (Auto) 66.1, Lymph % (Auto) 21.5, [place] % (Auto) 9.0, Eos % (Auto) 3.0, Baso % (Auto) 0.4, Neut # (Auto) 3.9, Lymph # (Auto) 1.3, [place] # (Auto) 0.5, Eos # (Auto) 0.2, Baso # (Auto) 0.0 I & O for Last 24 hours: Intake & Output 07/11/19 07/12/19 07/13/19 07/14/19 11:59 11:59 11:59 11:59 Weight 105 lb - *Routine HEENT Exam Head: Present: normocephalic Eye: Present: EOMI, PERRL ENT: Present: mucous membranes moist - *Routine Neck Exam Present: supple. Absent: JVD, carotid bruit - *Routine Respiratory Exam Present: rales. Absent: accessory muscle use, rhonchi, wheezes - *Routine Cardiovascular Exam Present: murmur, irregularly irregular. Absent: gallop, rubs - *Routine Abdominal Exam Present: soft. Absent: tenderness, distended, guarding - *Routine Extremities Exam Absent: edema, calf tenderness - *Routine Neurological Exam Present: alert, oriented X3, moving all extremities Assessment and Plan (1) Chest pain Current visit: Yes Status: Acute Qualifiers: Chest pain type: unspecified Qualified Code(s): R07.9 - Chest pain, unspecified Category: Medical Code(s): R07.9 - Chest pain, unspecified (2) Anemia Current visit: No Status: Acute Qualifiers: Anemia type: unspecified type Qualified Code(s): D64.9 - Anemia, unspecified Category: Medical Code(s): D64.9 - Anemia, unspecified (3) Atrial fibrillation with rapid ventricular response Current visit: No Status: Acute Category: Medical Code(s): I48.91 - Unspecified atrial fibrillation (4) Biventricular CHF (congestive heart failure) Current visit: No Status: Acute Category: Medical Code(s): I50.82 - Biventricular heart failure (5) Cardiomyopathy Current visit: No Status: Acute Category: Medical Code(s): I42.9 - Cardiomyopathy, unspecified - Assessment and plan all Dx Assessment and Plan for all problems:: 1. Chest pain with no prior history of coronary artery disease. Initial troponin normal. EKG shows atrial fibrillation with mildly tachycardic rate and no acute ST segment changes. Patient is on digoxin therapy. 2. Cardiomyopathy with congestive heart failure, continue diuretic therapy. Will make sure patient is on goal-directed therapy including beta-gianna, CLARISA or ARB inhibitor and diuretic therapy. 3. Atrial fibrillation with rapid ventricular response, titrate therapy to obtain rate control. Patient has an elevated CHADS score but is not on anticoagulation candidate due to frequent falls. 4. Chest wall discomfort, will give 1 dose of IV Toradol today.
--- NOTE | 2019-07-13 22:43 | History & Physical Report ---
*Admission Date: 07/13/19 *Chief complaint: chest pain *History of present illness: this patient from local residential presented with chest pain - pt has hx of occ a fib and was recently treated as op -pt with new chest pain [facility] History I have reviewed the patient's past medical history: Yes Medical History: Reports:: Atrial Fibrillation, Coronary Artery Disease, Hyperlipidemia, Hypertension Denies:: Cancer, Diabetes Mellitus Type 1, Diabetes Mellitus Type 2, Internal Pacemaker, MRSA *Have you ever received a pneumonia vaccine?: Yes *Have you received a flu vaccine this season?: Yes Other Medical History: Reports: Anemia, Arthritis, Hypothyroidism Laterality Cases: Bilateral: Other Other Surgeries: No: Pacemaker Amputation: No Fractures: No - *Social History Educational Level: Attended High School Smoking Status: Never smoker Alcohol Intake: never *Occupational Status:: disabled Housing: assisted living facility Household Members: other *Travel in the last 8 weeks: None Family Hx:: Hyperlipidemia, Hypertension, Heart Attack Review of Systems - Review of Systems Review of systems:: pertinent systems reviewed and negative unless documented below - Constitutional Denies fever(s) - Eyes Denies change in vision - ENT Denies neck pain - *Cardiovascular Reports chest pain at rest - *Respiratory Denies cough - *Gastrointestinal Denies abdominal pain - *Genitourinary Denies blood in urine - *Musculoskeletal Denies joint pain, Denies joint swelling - Integumentary/Breasts Denies rash - *Neurologic Denies frequent falls, Denies fainting, Denies tingling - Psychiatric Denies anxiety Meds Home Medications Medication Instructions Recorded Confirmed Type Atorvastatin Calcium [Atorvastatin 80 mg PO HS 07/18/18 07/13/19 History 80mg Tab] Omeprazole [Omeprazole 20mg 20 mg PO BID 07/18/18 07/13/19 History Capsule] Sertraline HCl [Zoloft 100mg 100 mg PO DAILY 07/18/18 07/13/19 History tablet] Acetaminophen 500 mg PO BIDP PRN 03/27/19 07/13/19 History Furosemide [Lasix 20mg tablet] 20 mg PO DAILY 07/10/19 07/13/19 History L. Acidophilus/Strept/LA P-Lorne 1 cap PO DAILY 07/10/19 07/13/19 History [Tiffanie-Q Probiotic Capsule] Digoxin [Digoxin 0.125mg Tablet] 125 mcg PO DAILY 07/13/19 07/13/19 History Potassium Chloride [K-Tab ER 20 20 meq PO DAILY 07/13/19 07/13/19 History mEq] dilTIAZem HCl [Diltiazem 120mg 120 mg PO DAILY 07/13/19 07/13/19 History 12Hr ER Cap] Donepezil HCl [Aricept 10mg 10 mg PO HS 07/14/19 07/14/19 History tablet] Levothyroxine Sodium 50 mcg PO DAILY 07/14/19 07/14/19 History [Levothyroxine 50mcg (0.05mg) Tab] Melatonin/Pyridoxine HCl (B6) 3 mg PO HS 07/14/19 07/14/19 History [Melatonin 3 mg Tablet] Nitroglycerin [Nitrostat 0.4mg SL 0.4 mg SL Q5MINP PRN 07/14/19 07/14/19 History Tablet] Allergies Allergy/AdvReac Type Severity Reaction Status Date / Time buspirone [From [employer]] Allergy Verified 01/12/19 12:14 Sulfa (Sulfonamide Allergy Verified 11/01/18 19:47 Antibiotics) Exam Vital signs and Labs for Last 24 Hours: Temp Pulse Resp BP Pulse Ox 97.6 F 112 H 17 130/75 95 07/13/19 20:00 07/13/19 20:00 07/13/19 20:00 07/13/19 20:00 07/13/19 20:00 Laboratory Results - last 24 hr 07/13/19 14:10: Sodium 144, Potassium 3.4 L, Chloride 108 H, Carbon Dioxide 27, Anion Gap 12.4, BUN 15, Creatinine 1.08 H, Estimated Creat Clear 28, Estimated GFR 48 L, Est GFR ( Amer) 58 L, Glucose 98, Calcium 7.9 L, Total Bilirubin 0.7, AST 25, ALT 16, Alkaline Phosphatase 105, Troponin I < 0.02, Total Protein 6.2 L, Albumin 3.0 L, Globulin 3.2, Albumin/Globulin Ratio 0.9 L 07/13/19 14:15: WBC 5.9, RBC 4.01 L, Hgb 11.3 L, Hct 38.6, MCV 96.4, MCH 28.3, MCHC 29.3 L, RDW 16.2, Plt Count 162, MPV 10.2, Neut % (Auto) 66.1, Lymph % (Auto) 21.5, [place] % (Auto) 9.0, Eos % (Auto) 3.0, Baso % (Auto) 0.4, Neut # (Auto) 3.9, Lymph # (Auto) 1.3, [place] # (Auto) 0.5, Eos # (Auto) 0.2, Baso # (Auto) 0.0 07/13/19 19:37: Troponin I < 0.02 I & O for Last 24 hours: Intake & Output 07/11/19 07/12/19 07/13/19 07/14/19 11:59 11:59 11:59 11:59 Intake Total 240 / 240 Balance 240 / 240 Weight 105 lb 9 oz - Constitutional no acute distress - *Routine HEENT Exam Head: Present: normocephalic Eye: Present: EOMI, PERRL ENT: Present: mucous membranes dry - *Routine Neck Exam Absent: JVD - *Routine Respiratory Exam Present: CTA bilaterally - *Routine Cardiovascular Exam Present: RRR, murmur, S4 - *Routine Abdominal Exam Present: soft - *Routine Extremities Exam Absent: calf tenderness - *Routine Skin Exam Present: intact - *Routine Neurological Exam Present: alert, oriented X3, CN II-XII intact - Routine Psychiatric Exam Present: normal affect Assessment and Plan (1) Chest pain Current visit: Yes Status: Acute Qualifiers: Chest pain type: unspecified Qualified Code(s): R07.9 - Chest pain, unspecified Category: Medical Code(s): R07.9 - Chest pain, unspecified (2) Anemia Current visit: No Status: Acute Qualifiers: Anemia type: unspecified type Qualified Code(s): D64.9 - Anemia, unspecified Category: Medical Code(s): D64.9 - Anemia, unspecified (3) Atrial fibrillation with rapid ventricular response Current visit: No Status: Acute Category: Medical Code(s): I48.91 - Unspecified atrial fibrillation (4) Biventricular CHF (congestive heart failure) Current visit: No Status: Acute Category: Medical Code(s): I50.82 - Biventricular heart failure (5) Cardiomyopathy Current visit: No Status: Acute Category: Medical Code(s): I42.9 - Cardiomyopathy, unspecified
--- NOTE | 2019-07-14 07:17 | Pharmacy Consult Notes ---
[facility] Pharmacy VTE Monitoring - Patient Demographics Admission date: 07/13/19 Report Date: 07/14/19 Time: 07:17 Allergies/Adverse Reactions: Patient Allergies buspirone [From BuSpar] Allergy (Verified 01/12/19 12:14) Sulfa (Sulfonamide Antibiotics) Allergy (Verified 11/01/18 19:47) Height: 1.52 m Weight: 47.854 kg Patient Problems: Current Active Problems Chest pain (Acute) - VTE Risk Labs: VTE Related Lab Results Hgb 11.3 g/dL (12.2-16.2) L 07/13/19 14:15 Hct 38.6 % (37.0-47.0) 07/13/19 14:15 Plt Count 162 K/mm3 (142-424) 07/13/19 14:15 BUN 15 mg/dL (7-18) 07/13/19 14:10 Creatinine 1.08 mg/dL (0.55-1.02) H 07/13/19 14:10 Estimated Creat Clear 28 mL/min (50-200) 07/13/19 14:10 Was VTE Risk Assessment Performed: Yes VTE Score: 3 VTE Risk Level: Low Risk - Prophylaxis VTE Prophylaxis Ordered?: Yes Types of VTE Prophylaxis: TEDS Knee High Location of Applied Device: Bilateral Lower Extremeties
--- NOTE | 2019-07-14 08:09 | Progress Note ---
Subjective Date: 07/14/19 Time: 08:04 Principal diagnosis: Chest pain Interval history: 88-year-old white female in bed in no acute distress. Still complains of some left-sided chest discomfort worse with palpation or deep breathing. Telemetry continues to show atrial fibrillation with heart rate around 100 bpm. Cardiac enzymes returned normal x4. Exam Vital signs and Labs for Last 24 Hours: Temp Pulse Resp BP Pulse Ox 97.9 F 94 H 18 115/62 95 07/14/19 04:00 07/14/19 04:00 07/14/19 04:00 07/14/19 04:00 07/14/19 04:00 Laboratory Results - last 24 hr 07/13/19 14:10: Sodium 144, Potassium 3.4 L, Chloride 108 H, Carbon Dioxide 27, Anion Gap 12.4, BUN 15, Creatinine 1.08 H, Estimated Creat Clear 28, Estimated GFR 48 L, Est GFR ( Amer) 58 L, Glucose 98, Calcium 7.9 L, Total Bilirubin 0.7, AST 25, ALT 16, Alkaline Phosphatase 105, Troponin I < 0.02, Total Protein 6.2 L, Albumin 3.0 L, Globulin 3.2, Albumin/Globulin Ratio 0.9 L 07/13/19 14:15: WBC 5.9, RBC 4.01 L, Hgb 11.3 L, Hct 38.6, MCV 96.4, MCH 28.3, MCHC 29.3 L, RDW 16.2, Plt Count 162, MPV 10.2, Neut % (Auto) 66.1, Lymph % (Auto) 21.5, [place] % (Auto) 9.0, Eos % (Auto) 3.0, Baso % (Auto) 0.4, Neut # (Auto) 3.9, Lymph # (Auto) 1.3, [place] # (Auto) 0.5, Eos # (Auto) 0.2, Baso # (Auto) 0.0 07/13/19 19:37: Troponin I < 0.02 07/13/19 22:20: Troponin I < 0.02 07/14/19 01:55: Troponin I < 0.02 I & O for Last 24 hours: Intake & Output 07/11/19 07/12/19 07/13/19 07/14/19 11:59 11:59 11:59 11:59 Intake Total 260 / 260 Balance 260 / 260 Weight 105 lb 8 oz - *Routine Respiratory Exam Present: CTA bilaterally. Absent: accessory muscle use, rales, rhonchi, wheezes - *Routine Cardiovascular Exam Present: irregularly irregular. Absent: murmur, gallop, rubs - *Routine Extremities Exam Absent: edema, calf tenderness - *Routine Neurological Exam Present: alert, oriented X3, moving all extremities Progress Note: A&P (1) Chest pain Status: Acute Current Visit: Yes (2) Anemia Status: Acute Current Visit: No (3) Atrial fibrillation with rapid ventricular response Status: Acute Current Visit: No (4) Biventricular CHF (congestive heart failure) Status: Acute Current Visit: No (5) Cardiomyopathy Status: Acute Current Visit: No Assessment and Plan for All Diagnoses:: 1. Chest pain with normal troponins but with newly diagnosed cardiomyopathy. Needs [facility] for further evaluation, waiting for OK from the [facility] (pt is a reddy of the [facility]). Continue bisoprolol, avapro and digoxin. Will stop cardizem in setting of cardiomyopathy. 2. Moderate to severe MR, continue lasix and follow renal status 3. A. fib with CVR in the 90's bpm range. Not a candidate for anticoagulation due to frequent falls. 4. Chest wall pain, reproducible with palpation.
--- NOTE | 2019-07-14 09:07 | Electrocardiograph Report ---
APPROVED REPORT Exam: Resting ECG HR:141 bpm ECG Measurements Heart Rate 141 AXES QRSd 68 QRS 43 QT 310 T219 QTc 474 <Conclusion> Atrial fibrillation with rapid ventricular response NDST-T Changes vs Dig Effect Abnormal ECG Electronically signed by : Deacon Asif, 07/14/2019 09:07:11
--- NOTE | 2019-07-14 09:21 | Progress Note ---
Internal Medicine - PN: Subj *Date: 07/14/19 *Time: 09:21 Interval history: 88-year-old female patient lying in bed resting quietly. She reports she did rest well during the night, informed she will be going for cardiac catheterization today. Exam Vital signs and Labs for Last 24 Hours: Temp Pulse Resp BP Pulse Ox 97.7 F 91 H 16 118/76 95 07/14/19 08:00 07/14/19 08:00 07/14/19 08:00 07/14/19 08:00 07/14/19 08:00 Laboratory Results - last 24 hr 07/13/19 14:10: Sodium 144, Potassium 3.4 L, Chloride 108 H, Carbon Dioxide 27, Anion Gap 12.4, BUN 15, Creatinine 1.08 H, Estimated Creat Clear 28, Estimated GFR 48 L, Est GFR ( Amer) 58 L, Glucose 98, Calcium 7.9 L, Total Bilirubin 0.7, AST 25, ALT 16, Alkaline Phosphatase 105, Troponin I < 0.02, Total Protein 6.2 L, Albumin 3.0 L, Globulin 3.2, Albumin/Globulin Ratio 0.9 L 07/13/19 14:15: WBC 5.9, RBC 4.01 L, Hgb 11.3 L, Hct 38.6, MCV 96.4, MCH 28.3, MCHC 29.3 L, RDW 16.2, Plt Count 162, MPV 10.2, Neut % (Auto) 66.1, Lymph % (Auto) 21.5, [place] % (Auto) 9.0, Eos % (Auto) 3.0, Baso % (Auto) 0.4, Neut # (Auto) 3.9, Lymph # (Auto) 1.3, [place] # (Auto) 0.5, Eos # (Auto) 0.2, Baso # (Auto) 0.0 07/13/19 19:37: Troponin I < 0.02 07/13/19 22:20: Troponin I < 0.02 07/14/19 01:55: Troponin I < 0.02 I & O for Last 24 hours: Intake & Output 07/11/19 07/12/19 07/13/19 07/14/19 23:59 23:59 23:59 23:59 Intake Total 240 / 240 280 / 280 Balance 240 / 240 280 / 280 Weight 105 lb 9 oz 105 lb 8 oz - Constitutional no acute distress - *Routine HEENT Exam Head: Present: normocephalic, atraumatic Eye: Present: EOMI, PERRL ENT: Present: mucous membranes dry - *Routine Neck Exam Present: full ROM, trachea midline. Absent: JVD, tracheal deviation - *Routine Respiratory Exam Present: CTA bilaterally. Absent: accessory muscle use - *Routine Cardiovascular Exam Present: murmur, irregular rhythm - *Routine Abdominal Exam Present: soft, normoactive bowel sounds. Absent: tenderness, firm - *Routine Extremities Exam Present: full ROM, pulses intact. Absent: edema, calf tenderness - Routine Back/Spine/Pelvis Exam Back/Spine: Present: full ROM. Absent: CVA tenderness - *Routine Skin Exam Present: intact, warm. Absent: rash - *Routine Neurological Exam Present: alert, oriented X3. Absent: hearing grossly intact - Routine Psychiatric Exam Present: normal affect. Absent: suicidal ideation, homicidal ideation Assessment and Plan (1) Chest pain Current visit: Yes Status: Acute Qualifiers: Chest pain type: unspecified Qualified Code(s): R07.9 - Chest pain, unspecified Category: Medical Code(s): R07.9 - Chest pain, unspecified (2) Anemia Current visit: No Status: Acute Qualifiers: Anemia type: unspecified type Qualified Code(s): D64.9 - Anemia, unspecified Category: Medical Code(s): D64.9 - Anemia, unspecified (3) Atrial fibrillation with rapid ventricular response Current visit: No Status: Acute Category: Medical Code(s): I48.91 - Unspecified atrial fibrillation (4) Biventricular CHF (congestive heart failure) Current visit: No Status: Acute Category: Medical Code(s): I50.82 - Biventricular heart failure (5) Cardiomyopathy Current visit: No Status: Acute Category: Medical Code(s): I42.9 - Cardiomyopathy, unspecified - Assessment and plan all Dx Assessment and Plan for all problems:: Rounded with Dr. Valenzuela, all orders per Dr. Valenzuela 1. Will have cardiac catheterization today
--- NOTE | 2019-07-15 08:34 | Progress Note ---
Internal Medicine - PN: Subj *Date: 07/15/19 *Time: 08:58 Interval history: 88-year-old female patient resting in bed quietly, still reports slight left upper chest pain. Cardiac catheterization performed yesterday, cardiology is seen today. Positive for C. difficile and has resulted Klebsiella pneumonia in her urine Exam Vital signs and Labs for Last 24 Hours: Temp Pulse Resp BP Pulse Ox 97.6 F 89 17 123/58 L 96 07/15/19 08:00 07/15/19 08:00 07/15/19 08:00 07/15/19 08:00 07/15/19 08:00 Laboratory Results - last 24 hr 07/15/19 05:07: Stl Aeromonas (PCR) Not detected, Stl C. cayetanensis PCR Not detected, Stool Rotavirus (PCR) Not detected, Stl Adenov F 40/41 PCR Not detected, Stool Astrovirus (PCR) Not detected, Stool Campylobacter PCR Not detected, Stl C.difficile Tox PCR Detected A, Stool Cryptosporidium PCR Not detected, Stl E.coli Shiga Tox PCR Not detected, Stool E coli O157 PCR Not detected, Stl Enterotoxigenic E PCR Not detected, Stool EPEC (PCR) Not detected, Stool EAEC (PCR) Not detected, Stl E. histolytica PCR Not detected, Stool Giardia Lamblia PCR Not detected, Stool Salmonella PCR Not detected, Stool Sapovirus (PCR) Not detected, Stl P. shigelloides PCR Not detected, Stl Shigella/EIEC PCR Not detected, St Y.enterocolitica PCR Not detected, Stool Vibrio (PCR) Not detected, Stl Vibrio cholerae PCR Not detected, Stl Norovirus GI/GII PCR Not detected I & O for Last 24 hours: Intake & Output 07/12/19 07/13/19 07/14/19 07/15/19 23:59 23:59 23:59 23:59 Intake Total 240 / 240 640 / 640 Balance 240 / 240 640 / 640 Weight 105 lb 9 oz 105 lb 8 oz 105 lb 5 oz - Constitutional no acute distress - *Routine HEENT Exam Head: Present: normocephalic, atraumatic Eye: Present: EOMI, PERRL, normal accommodation ENT: Present: mucous membranes dry - *Routine Neck Exam Present: supple, full ROM, trachea midline. Absent: JVD, tracheal deviation - *Routine Respiratory Exam Present: wheezes. Absent: accessory muscle use - *Routine Cardiovascular Exam Present: murmur, irregular rhythm - *Routine Abdominal Exam Present: soft, normoactive bowel sounds. Absent: tenderness, firm - *Routine Extremities Exam Present: full ROM, pulses intact. Absent: cyanosis, calf tenderness - Routine Back/Spine/Pelvis Exam Back/Spine: Present: full ROM. Absent: CVA tenderness - *Routine Skin Exam Present: intact. Absent: cyanosis, jaundice - *Routine Neurological Exam Present: alert, CN II-XII intact. Absent: altered mental status - Routine Psychiatric Exam Present: normal affect, normal thought process. Absent: suicidal ideation, homicidal ideation Assessment and Plan (1) Chest pain Current visit: Yes Status: Acute Qualifiers: Chest pain type: unspecified Qualified Code(s): R07.9 - Chest pain, unspecified Category: Medical Code(s): R07.9 - Chest pain, unspecified (2) Anemia Current visit: No Status: Acute Qualifiers: Anemia type: unspecified type Qualified Code(s): D64.9 - Anemia, unspecified Category: Medical Code(s): D64.9 - Anemia, unspecified (3) Atrial fibrillation with rapid ventricular response Current visit: No Status: Acute Category: Medical Code(s): I48.91 - Unspecified atrial fibrillation (4) Biventricular CHF (congestive heart failure) Current visit: No Status: Acute Category: Medical Code(s): I50.82 - Biventricular heart failure (5) Cardiomyopathy Current visit: No Status: Acute Category: Medical Code(s): I42.9 - Cardiomyopathy, unspecified (6) C. difficile diarrhea Current visit: Yes Status: Acute Category: Medical Code(s): A04.72 - Enterocolitis due to Clostridium difficile, not specified as recurrent (7) UTI due to Klebsiella species Current visit: Yes Status: Acute Category: Medical Code(s): N39.0 - Urinary tract infection, site not specified; B96.1 - Klebsiella pneumoniae [K. pneumoniae] as the cause of diseases classified elsewhere - Assessment and plan all Dx Assessment and Plan for all problems:: Rounded with Dr. Valenzuela all orders per Dr. Valenzuela 1. C. difficile will be treated with IV Flagyl 2. UTI with Klebsiella pneumonia treated with IV Rocephin 3. PT OT eval The patient's infection will respond to the chosen ABx?: Yes Is the patient receiving the right drug, dose, and route?: Yes Could a more targeted ABx be ordered?: No 10
[2019-07-15 08:45] LABS: Anion Gap 14.1 mEq/L (5-15)
[2019-07-15 08:48] LABS: Basophils % 0.3 % (0.1-2.0); Eosinophils # 0.3 K/mm3 (0.0-0.4); Eosinophils % 2.8 % (0.1-12.0); Hematocrit 33.9 % (37.0-47.0); Hemoglobin 10.9 g/dL (12.2-16.2); Lymphocytes % 10.8 % (10-50); Mean Corpuscular HGB Conc 32.3 g/dL (31.8-35.4); Mean Corpuscular Volume 92.9 fl (81-99); Mean Platelet Volume 10.8 fl (7.4-10.4); Monocytes # 0.6 K/mm3 (0.1-1.0); Neutrophils # 7.1 K/mm3 (1.8-7.8); Platelet Count 138 K/mm3 (142-424); Red Blood Count 3.65 M/mm3 (4.20-5.40); Red Cell Distribution Width 15.4 % (11.5-17.5)
--- NOTE | 2019-07-15 11:02 | Progress Note ---
Subjective Date: 07/15/19 Time: 10:45 Principal diagnosis: Chest pain Interval history: This is an 88-year-old white female who presented to the hospital with complaints of chest pain. She is still complaining of chest pain today. She states that this is mostly with deep breathing and sometimes with just being at rest. She states that this is associated with severe shortness of breath. The patient is very short of breath today while speaking to me. She states that she just does not feel good. She is very fatigued and tired. States her shortness of breath is associated with orthopnea. She states that she feels better sitting in the chair than she does lying in bed. She did undergo left cardiac catheterization yesterday which showed mild nonocclusive coronary artery disease. The patient does have a severely elevated LVEDP and systolic congestive heart failure. The patient remains in atrial fibrillation this morning. Her heart rate is better today but still not as low as Dr. Jiménez would like for it to be. She denies any fever, chills, nausea, vomiting, diarrhea. Exam Vital signs and Labs for Last 24 Hours: Temp Pulse Resp BP Pulse Ox 97.6 F 93 H 17 123/58 L 96 07/15/19 08:00 07/15/19 08:53 07/15/19 08:00 07/15/19 08:00 07/15/19 08:00 Laboratory Results - last 24 hr 07/15/19 05:07: Stl Aeromonas (PCR) Not detected, Stl C. cayetanensis PCR Not d etected, Stool Rotavirus (PCR) Not detected, Stl Adenov F 40/41 PCR Not detected, Stool Astrovirus (PCR) Not detected, Stool Campylobacter PCR Not detected, Stl C.difficile Tox PCR Detected A, Stool Cryptosporidium PCR Not detected, Stl E.coli Shiga Tox PCR Not detected, Stool E coli O157 PCR Not detected, Stl Enterotoxigenic E PCR Not detected, Stool EPEC (PCR) Not detected, Stool EAEC (PCR) Not detected, Stl E. histolytica PCR Not detected, Stool Giardia Lamblia PCR Not detected, Stool Salmonella PCR Not detected, Stool Sapovirus (PCR) Not detected, Stl P. shigelloides PCR Not detected, Stl Shigella/EIEC PCR Not detected, St Y.enterocolitica PCR Not detected, Stool Vibrio (PCR) Not detected, Stl Vibrio cholerae PCR Not detected, Stl Norovirus GI/GII PCR Not detected 07/15/19 08:00: Magnesium 1.2 L 07/15/19 08:00: WBC 9.0 D, RBC 3.65 L, Hgb 10.9 L, Hct 33.9 L, MCV 92.9, MCH 30.0, MCHC 32.3, RDW 15.4, Plt Count 138 L, MPV 10.8 H, Neut % (Auto) 79.0, Lymph % (Auto) 10.8, [place] % (Auto) 7.0, Eos % (Auto) 2.8, Baso % (Auto) 0.3, Neut # (Auto) 7.1, Lymph # (Auto) 1.0, [place] # (Auto) 0.6, Eos # (Auto) 0.3, Baso # (Auto) 0.0 07/15/19 08:00: Sodium 142, Potassium 4.1 D, Chloride 105, Carbon Dioxide 27, Anion Gap 14.1, BUN 18, Creatinine 1.28 H, Estimated Creat Clear 24, Estimated GFR 40 L, Est GFR ( Amer) 48 L, Glucose 123 H, Calcium 8.0 L I & O for Last 24 hours: Intake & Output 07/12/19 07/13/19 07/14/19 07/15/19 23:59 23:59 23:59 23:59 Intake Total 240 / 240 640 / 640 480 / 480 Output Total 100 / 100 Balance 240 / 240 640 / 640 380 / 380 Weight 105 lb 9 oz 105 lb 8 oz 105 lb 5 oz Narrative: Telemetry strip is atrial fibrillation with a rate of 85. LHC shows Nonischemic cardiomyopathy High output tachycardia induced cardiomyopathy secondary to chronic atrial fibrillation Left ventricular dysfunction Severely elevated LVEDP PLAN 1. Patient requires better rate control for her atrial fibrillation. If her heart rate is controlled in the 60s or 70s with the usage of beta-gianna and digoxin I anticipate her left ventricular function improving - Constitutional no acute distress, average body habitus, chronically ill appearing, cooperative - *Routine HEENT Exam Head: Present: normocephalic, atraumatic Eye: Present: EOMI, PERRL ENT: Present: mucous membranes moist - *Routine Neck Exam Present: supple, full ROM, normal carotid upstroke. Absent: JVD, carotid bruit, lymphadenopathy - *Routine Respiratory Exam Present: decreased breath sounds, rales, wheezes - *Routine Cardiovascular Exam Present: Normal S1, Normal S2, irregularly irregular. Absent: murmur - *Routine Abdominal Exam Present: soft, normoactive bowel sounds. Absent: tenderness, distended - *Routine Extremities Exam Present: full ROM, pulses intact, normal capillary refill. Absent: cyanosis, clubbing, edema - *Routine Skin Exam Present: intact, warm. Absent: erythema, rash - *Routine Neurological Exam Present: alert, oriented X3, CN II-XII intact. Absent: sensory deficit, motor deficit - Detailed Eye Exam Eyelids: Left normal inspection Progress Note: A&P (1) Nonischemic cardiomyopathy Status: Acute Current Visit: Yes (2) Elevated left ventricular end-diastolic pressure (LVEDP) Status: Acute Current Visit: Yes (3) Acute systolic (congestive) heart failure Status: Acute Current Visit: Yes (4) Atrial fibrillation Status: Chronic Current Visit: Yes (5) Chest pain Status: Acute Current Visit: Yes (6) Anemia Status: Acute Current Visit: No (7) Atrial fibrillation with rapid ventricular response Status: Resolved Current Visit: No (8) Biventricular CHF (congestive heart failure) Status: Acute Current Visit: No (9) C. difficile diarrhea Status: Acute Current Visit: Yes (10) UTI due to Klebsiella species Status: Acute Current Visit: Yes Assessment and Plan for All Diagnoses:: Plan: 1. The patient was admitted to the hospital with chest pain. She did undergo left cardiac catheterization yesterday which showed mild [id number] coronary artery disease. 2. The patient does have a severely elevated LVEDP as well as nonischemic cardiomyopathy. The patient needs treatment for her acute systolic congestive heart failure. Dr. Jiménez recommends increasing her Lasix to 40 mg IV 3 times a day. 3. we will also start her on Aldactone 50 mg daily. 4. We will repeat a BMP in the morning. 5. Her blood pressure is well controlled. 6. Her LDL goal is less than 55. 7. The patient does remain in atrial fibrillation. Her heart rate is better to day at 85. However Dr. Jiménez feels that her high output tachycardia is the cause of her nonischemic cardiomyopathy and would like to see her heart rate better controlled in the 60s or 70s. We will increase her bisoprolol to 10 mg p.o. twice daily for better heart rate control. 8. She does have C. difficile. This is being managed by her primary care provider. 9. The patient has been started on a beta-gianna and are up for her congestive heart failure. 10. Further recommendations will be made pending the patient's response to treatment.
[2019-07-16 06:40] LABS: Anion Gap 11.9 mEq/L (5-15); Calcium 8.1 mg/dL (8.5-10.1)
[2019-07-16 07:11] LABS: Basophils % 0.3 % (0.1-2.0); Eosinophils # 0.3 K/mm3 (0.0-0.4); Eosinophils % 3.5 % (0.1-12.0); Hematocrit 34.8 % (37.0-47.0); Hemoglobin 11.2 g/dL (12.2-16.2); Lymphocytes # 1.4 K/mm3 (0.7-4.5); Mean Corpuscular HGB Conc 32.1 g/dL (31.8-35.4); Mean Corpuscular Volume 93.1 fl (81-99); Mean Platelet Volume 10.1 fl (7.4-10.4); Monocytes # 0.8 K/mm3 (0.1-1.0); Monocytes % 10.6 % (1.7-9.3); Neutrophils # 5.4 K/mm3 (1.8-7.8); Neutrophils % 67.6 % (37.0-80.0); Platelet Count 127 K/mm3 (142-424); Red Blood Count 3.74 M/mm3 (4.20-5.40); White Blood Count 7.9 K/mm3 (4.8-10.8)
--- NOTE | 2019-07-16 08:53 | Discharge Summary ---
General - General Admission date:: 07/13/19 Discharge date: 07/16/19 HPI HPI: this patient from local intermediate presented with chest pain - pt has hx of occ a fib and was recently treated as op -pt with new chest pain Hospital Course Hospital Course: heart cath:IMPRESSION Nonischemic cardiomyopathy High output tachycardia induced cardiomyopathy secondary to chronic atrial fibrillation Left ventricular dysfunction Severely elevated LVEDP PLAN 1. Patient requires better rate control for her atrial fibrillation. If her heart rate is controlled in the 60s or 70s with the usage of beta-gianna and digoxin I anticipate her left ventricular function improving 2. Standard therapy for systolic heart failure chest x ray: no acute findings Vital Signs Temp Pulse Pulse Resp BP Pulse Ox 07/16/19 08:48 80 07/16/19 07:28 97.8 F 66 16 116/66 100 07/16/19 04:46 91 L 07/16/19 04:00 98.8 F 80 92 H 17 119/74 99 07/16/19 01:30 95 07/16/19 00:00 97.8 F 90 86 17 126/64 98 07/15/19 20:00 90 07/15/19 19:56 97.9 F 85 17 125/63 99 07/15/19 16:00 97.0 F L 90 84 20 126/66 95 07/15/19 12:00 80 87 16 111/69 98 Intake and Output 07/15/19 07/16/19 07/16/19 19:59 03:59 11:59 Intake Total 340 / 700 360 / 700 Balance 340 / 700 360 / 700 Intake: Intake, Oral Amount 240 / 600 360 / 600 Intake, Total IV Amount 100 / 100 Other: Number of Urine Attends/Diapers 2 1 Number of Bowel Movements 2 1 Weight 105 lb 13.15 oz 103 lb 6 oz Patient Weight 07/16/19 11:59 Weight 103 lb 6 oz Laboratory Results - last 24 hr 07/16/19 06:05: WBC 7.9, RBC 3.74 L, Hgb 11.2 L, Hct 34.8 L, MCV 93.1, MCH 29.8, MCHC 32.1, RDW 15.0, Plt Count 127 L, MPV 10.1, Neut % (Auto) 67.6, Lymph % (Auto) 18.0, [place] % (Auto) 10.6 H, Eos % (Auto) 3.5, Baso % (Auto) 0.3, Neut # (Auto) 5.4, Lymph # (Auto) 1.4, [place] # (Auto) 0.8, Eos # (Auto) 0.3, Baso # (Auto) 0.0 07/16/19 06:05: Sodium 143, Potassium 4.9, Chloride 106, Carbon Dioxide 30, Anion Gap 11.9, BUN 23 H D, Creatinine 1.38 H, Estimated Creat Clear 22, Estimated GFR 36 L, Est GFR ( Amer) 44 L, Glucose 104, Calcium 8.1 L stool positive for c diff- po vanc out pt. Pt will be dc back to [facility]. follow up with cardiology in 2 weeks. today pt sitting up in bed states she feels fine. eating and drinking ok. uti-klebsiella pneumonie- 2 days rocephin- dc back on 8 days of keflex. bmp in 1 week Objective Vital signs: Temp Pulse Resp BP Pulse Ox 97.8 F 80 16 116/66 100 07/16/19 07:28 07/16/19 08:48 07/16/19 07:28 07/16/19 07:28 07/16/19 07:28 no acute distress, thin - *Routine HEENT Exam Head: Present: normocephalic Eye: Present: PERRL ENT: Present: mucous membranes moist - *Routine Respiratory Exam Present: CTA bilaterally - *Routine Cardiovascular Exam Present: irregular rhythm - *Routine Abdominal Exam Present: soft, normoactive bowel sounds. Absent: tenderness, distended, firm - *Routine Extremities Exam Present: full ROM - *Routine Skin Exam Present: intact - *Routine Neurological Exam Present: alert, oriented X3 - Routine Psychiatric Exam Present: normal affect Results Labs on day of discharge: Labs from last 24 hours 07/16/19 07/16/19 07/15/19 06:05 06:05 08:00 WBC 7.9 9.0 D RBC 3.74 L 3.65 L Hgb 11.2 L 10.9 L Hct 34.8 L 33.9 L MCV 93.1 92.9 MCH 29.8 30.0 MCHC 32.1 32.3 RDW 15.0 15.4 Plt Count 127 L 138 L MPV 10.1 10.8 H Neut % (Auto) 67.6 79.0 Lymph % (Auto) 18.0 10.8 [place] % (Auto) 10.6 H 7.0 Eos % (Auto) 3.5 2.8 Baso % (Auto) 0.3 0.3 Neut # (Auto) 5.4 7.1 Lymph # (Auto) 1.4 1.0 [place] # (Auto) 0.8 0.6 Eos # (Auto) 0.3 0.3 Baso # (Auto) 0.0 0.0 Sodium 143 Potassium 4.9 Chloride 106 Carbon Dioxide 30 Anion Gap 11.9 BUN 23 H D Creatinine 1.38 H Estimated Creat Clear 22 Estimated GFR 36 L Est GFR ( Amer) 44 L Glucose 104 Calcium 8.1 L - Additional Comments Rounded with dr rodriguez, all orders per dr rodriguez dc back to [facility] DS: Diagnosis - Discharge Diagnosis (1) Nonischemic cardiomyopathy Status: Acute (2) Elevated left ventricular end-diastolic pressure (LVEDP) Status: Acute (3) Acute systolic (congestive) heart failure Status: Acute (4) Atrial fibrillation Status: Chronic (5) Chest pain Status: Acute (6) Anemia Status: Acute (7) Atrial fibrillation with rapid ventricular response Status: Resolved (8) Biventricular CHF (congestive heart failure) Status: Acute (9) C. difficile diarrhea Status: Acute (10) UTI due to Klebsiella species Status: Acute Discharge Plan - Patient Discharge Instructions ACTIVITY: Continue current activity DIET: continue same diet Patient Instructions: Antibiotic-associated Colitis -- C difficile, Heart- Healthy Diet, DI for Antibiotic -- associated Colitis -- C difficile, DI for Angina, DI for Cardiac Catheterization, DI for Urinary Tract Infection (UTI), DI for Surgical Site Infection - Follow up Plan Follow up with: Meño Jiménez MD [Staff Physician] - 2 weeks Sukh Rodriguez MD [Primary Care Provider] - 1 week (will se pt at [facility]) Disposition: Home, Self-Fci Medications: Home Medications Medication Instructions Recorded Confirmed Type Atorvastatin Calcium [Atorvastatin 80 mg PO HS 07/18/18 07/13/19 History 80mg Tab] Omeprazole [Omeprazole 20mg 20 mg PO BID 07/18/18 07/13/19 History Capsule] Sertraline HCl [Zoloft 100mg 100 mg PO DAILY 07/18/18 07/13/19 History tablet] Acetaminophen 500 mg PO BIDP PRN 03/27/19 07/13/19 History Furosemide [Lasix 20mg tablet] 20 mg PO DAILY 07/10/19 07/13/19 History Digoxin [Digoxin 0.125mg Tablet] 125 mcg PO DAILY 07/13/19 07/13/19 History Potassium Chloride [K-Tab ER 20 20 meq PO DAILY 07/13/19 07/13/19 History mEq] dilTIAZem HCl [Diltiazem 120mg 120 mg PO DAILY 07/13/19 07/13/19 History 12Hr ER Cap] Donepezil HCl [Aricept 10mg 10 mg PO HS 07/14/19 07/14/19 History tablet] Levothyroxine Sodium 50 mcg PO DAILY 07/14/19 07/14/19 History [Levothyroxine 50mcg (0.05mg) Tab] Melatonin/Pyridoxine HCl (B6) 3 mg PO HS 07/14/19 07/14/19 History [Melatonin 3 mg Tablet] Nitroglycerin [Nitrostat 0.4mg SL 0.4 mg SL Q5MINP PRN 07/14/19 07/14/19 History Tablet] Furosemide [Lasix 40mg tab] 40 mg PO DAILY 30 Days #30 tab 07/16/19 Rx Irbesartan [Avapro 75mg 75 mg PO DAILY 30 Days #30 tab 07/16/19 Rx tablet] L. Acidophilus/Strept/LA P-Lorne 1 cap PO DAILY 30 Days #30 cap 07/16/19 Rx [Tiffanie-Q Probiotic Capsule] Spironolactone [Aldactone 25mg 25 mg PO DAILY 30 Days #30 tab 07/16/19 Rx Tab] Vancomycin HCl 125 mg PO QID 10 Days #40 cap 07/16/19 Rx bisoproloL fumarate [Zebeta 5mg 10 mg PO BID 30 Days #60 tab 07/16/19 Rx tablet] cephALEXin [Keflex 500mg Cap] 500 mg PO BID 10 Days #20 cap 07/16/19 Rx Prescriptions/Medication Reconciliation: New Spironolactone [Aldactone 25mg Tab] 25 mg PO DAILY 30 Days #30 tab Furosemide [Lasix 40mg tab] 40 mg PO DAILY 30 Days #30 tab Irbesartan [Avapro 75mg tablet] 75 mg PO DAILY 30 Days #30 tab cephALEXin [Keflex 500mg Cap] 500 mg PO BID 10 Days #20 cap Vancomycin HCl 125 mg PO QID 10 Days #40 cap bisoproloL fumarate [Zebeta 5mg tablet] 10 mg PO BID 30 Days #60 tab Continued Omeprazole [Omeprazole 20mg Capsule] 20 mg PO BID Atorvastatin Calcium [Atorvastatin 80mg Tab] 80 mg PO HS Acetaminophen 500 mg PO BIDP PRN PRN Reason: PAIN Nitroglycerin [Nitrostat 0.4mg SL Tablet] 0.4 mg SL Q5MINP PRN PRN Reason: Chest Pain L. Acidophilus/Strept/LA P-Lorne [[place]-Q Probiotic Capsule] 1 cap PO DAILY 30 Days #30 cap Sertraline HCl [Zoloft 100mg tablet] 100 mg PO DAILY Digoxin [Digoxin 0.125mg Tablet] 125 mcg PO DAILY Donepezil HCl [Aricept 10mg tablet] 10 mg PO HS Melatonin/Pyridoxine HCl (B6) [Melatonin 3 mg Tablet] 3 mg PO HS Levothyroxine Sodium [Levothyroxine 50mcg (0.05mg) Tab] 50 mcg PO DAILY Discontinued Potassium Chloride [K-Tab ER 20 mEq] 20 meq PO DAILY Furosemide [Lasix 20mg tablet] 20 mg PO DAILY dilTIAZem HCl [Diltiazem 120mg 12Hr ER Cap] 120 mg PO DAILY - Problem Reconciliation Problems Reviewed?: Yes
--- NOTE | 2019-07-16 09:12 | Progress Note ---
Subjective Date: 07/16/19 Time: 09:09 Principal diagnosis: Chest pain Interval history: 88-year-old white female in bed in no acute distress. States she is feeling better and breathing better. Patient relates that she is being discharged today. She denies any diarrhea. Exam Vital signs and Labs for Last 24 Hours: Temp Pulse Resp BP Pulse Ox 97.8 F 80 16 116/66 100 07/16/19 07:28 07/16/19 08:48 07/16/19 07:28 07/16/19 07:28 07/16/19 07:28 Laboratory Results - last 24 hr 07/16/19 06:05: WBC 7.9, RBC 3.74 L, Hgb 11.2 L, Hct 34.8 L, MCV 93.1, MCH 29.8, MCHC 32.1, RDW 15.0, Plt Count 127 L, MPV 10.1, Neut % (Auto) 67.6, Lymph % (Auto) 18.0, [place] % (Auto) 10.6 H, Eos % (Auto) 3.5, Baso % (Auto) 0.3, Neut # (Auto) 5.4, Lymph # (Auto) 1.4, [place] # (Auto) 0.8, Eos # (Auto) 0.3, Baso # (Auto) 0.0 07/16/19 06:05: Sodium 143, Potassium 4.9, Chloride 106, Carbon Dioxide 30, Anion Gap 11.9, BUN 23 H D, Creatinine 1.38 H, Estimated Creat Clear 22, Estimated GFR 36 L, Est GFR ( Amer) 44 L, Glucose 104, Calcium 8.1 L I & O for Last 24 hours: Intake & Output 07/13/19 07/14/19 07/15/19 07/16/19 11:59 11:59 11:59 11:59 Intake Total 520 / 520 940 / 940 700 / 700 Output Total 100 / 100 Balance 520 / 520 840 / 840 700 / 700 Weight 105 lb 8 oz 105 lb 5 oz 103 lb 6 oz - *Routine Respiratory Exam Present: CTA bilaterally. Absent: accessory muscle use, rales, rhonchi, wheezes - *Routine Cardiovascular Exam Present: RRR. Absent: murmur, gallop, rubs - *Routine Neurological Exam Present: alert, oriented X3, moving all extremities Progress Note: A&P (1) Nonischemic cardiomyopathy Status: Acute Current Visit: Yes (2) Elevated left ventricular end-diastolic pressure (LVEDP) Status: Acute Current Visit: Yes (3) Acute systolic (congestive) heart failure Status: Acute Current Visit: Yes (4) Atrial fibrillation Status: Chronic Current Visit: Yes (5) Chest pain Status: Acute Current Visit: Yes (6) Anemia Status: Acute Current Visit: No (7) Atrial fibrillation with rapid ventricular response Status: Resolved Current Visit: No (8) Biventricular CHF (congestive heart failure) Status: Acute Current Visit: No (9) C. difficile diarrhea Status: Acute Current Visit: Yes (10) UTI due to Klebsiella species Status: Acute Current Visit: Yes Assessment and Plan for All Diagnoses:: 1. Atrial fibrillation, rate controlled on the higher dose bisoprolol 10 mg twice daily and digoxin 0.125 mg daily 2. Nonischemic cardiomyopathy with congestive heart failure felt secondary to tachycardia from atrial fibrillation, improved on IV diuretics and beta-gianna therapy. Recommend discharge home on Lasix 40 mg daily and Aldactone 25 mg daily. Check a BMP in 1 week. 3. Hypertension, continue irbesartan 75 mg daily 4. Hyperlipidemia, continue atorvastatin 80 mg daily. 5. Follow-up in our office in 2 weeks or sooner if needed.
--- NOTE | 2019-07-17 09:02 | Electrocardiograph Report ---
APPROVED REPORT Exam: Resting ECG HR:81 bpm ECG Measurements Heart Rate 81 AXES QRSd 68 QRS 20 QT 370 T49 QTc 429 <Conclusion> Atrial fibrillation Nonspecific T wave abnormality, probably digitalis effect Abnormal ECG Electronically signed by : Rodrigo Pacheco, 07/17/2019 09:02:25
== END 2019-07-16 11:10 | disposition home or self-care (01) ==
LOC: ER 13:29 → 2ND 13:29
PROVIDERS: ADMIT Emergency Medicine; ATTEND Emergency Medicine
CPT/HCPCS: 36415; 71010; 71045; 80048; 80053; 83735; 84484; 85025; 87507; 93005; 93458; 94760; 94761; 96374; 97166; 99152; 99284; C1725; C1769; G0378; J1644; Q9967